=== PATIENT | female | born 1955 | race Native Hawaiian/Other Pacific Islander ===

== ENCOUNTER 2018-04-09 08:24 | Day surgery (SDC) | payer OTHER, SELFPAY ==
--- NOTE | 2018-04-04 16:56 | PM.PREOP ---
Pre-operative Note Interval Note Pre-op Check: Yes History & Physical Reviewed by Physician Changes: No
[2018-04-09 09:09] VITALS: BP 175/87; PULSE 78; RESP 16; TEMP 36.1; O2SAT 98; BMI 23.1
[2018-04-09] MEDS: PROPARACAINE 0.5% OPHTH SOL 2 DROPS EYE-OP (09:15)
[2018-04-09] MEDS: CATARACT EYE COMPOUND (10 DROPS/SYRINGE) 3 DROPS EYE-OP (09:18)
[2018-04-09] MEDS: BALANCED SALT IRRIG SOLN NO.2 15 ML IRRIG.SOLN IRR (10:04)
[2018-04-09] MEDS: LIDOCAINE 2% 4 ML, BUPIVACAINE 0.5% (PF) 4 ML, HYALURONIDASE 150 UNIT INJ (10:05)
[2018-04-09] MEDS: CARBACHOL 1.5 ML VIAL INJ (10:06)
[2018-04-09] MEDS: CHONDROIDTIN/SOD HYALURONATE 1.05 ML SYRINGE INTRAOCULA (10:11)
[2018-04-09] MEDS: ERYTHROMYCIN OPHTH 1 GM OINT 1 APPLIC EYE-RIGHT (10:11)
[2018-04-09] MEDS: LIDOCAINE 1% W/EPI INJ 20 ML INJ (10:12)
[2018-04-09] MEDS: HYALURONATE SODIUM 10 MG/ML SYRINGE INJ (10:12)
[2018-04-09] MEDS: MOXIFLOXACIN OPHTH DROPS 3 ML BOTTLE 2 DROPS INJ (10:13)
[2018-04-09] MEDS: OFLOXACIN 0.3% OPHTH 5 ML 2 DROPS EYE-RIGHT (10:13)
[2018-04-09] MEDS: PHENYLEPHRINE/LIDOCAINE VIAL (OR) 0.2 ML EYE-OP (10:15)
[2018-04-09] MEDS: TRIAMCINOLONE 50 MG/5 ML VIAL INJ (10:15)
[2018-04-09] MEDS: TRYPAN BLUE 0.5 ML SYRINGE INJ (10:16)
[2018-04-09] MEDS: BALANCED SALT IRRIG SOLN NO.2 500 ML, EPINEPHrine 1 MG IRR (10:17)
[2018-04-09] MEDS: LIDOCAINE JELLY 2% 5 ML 1 APPLIC TOP (10:22)
[2018-04-09 10:37] VITALS: BP 159/90; PULSE 90; RESP 16; TEMP 36.9; O2SAT 95
[2018-04-09 10:45] VITALS: BP 159/90; PULSE 90; RESP 16; TEMP 36.9; O2SAT 95
--- NOTE | 2018-04-09 15:21 | PM.OP.1 ---
Operative Date/Time/Diagnoses Date of procedure: 04/09/18 Time of procedure: 09:45 Procedure & Clinicians Procedure: Date of service: [] Preoperative diagnoses: 1. Right [] Cataract Postoperative diagnoses: 1. Cataract Complex with advanced cortical nuclear sclerotic changes. Need for capsular dye. 2. hypertension Procedure: Complex Phacoemulsification with posterior chamber intraocular lens implant and use of capsular dye. Surgeon: Brynn Jimenez MD Complications: none Specimen: None Implant:ZCBOO+21.0 Blood loss: None Anesthesia: Retrobulbar with monitored standby Anesthesiologist: William Uribe M.D. Description of procedure: Patient is a female 62 year old [place] with decreased vision due to cataract which is affecting activities of daily living. She wants surgery to improve vision. She was taken to the operating room and given IV sedation. A retrobulbar block insert consisting of 6 cc of 2% xylocaine without epinephrine mixed half and half with 0.5% Marcaine with 1 cc of hyaluronidase added is placed between the medial and lateral 1/3 of the inferior orbital rim. Lid akinesia is obtain with 1% xylocaine with epinephrine infiltrated along the lid margin. The eye is manually massaged for 30 sec, prepped using Betadine solution, and draped in the usual sterile fashion. Temporal approach was made, a 1 mm side-port incision was made at the 7:30 position. Phenylephrine 1.5% mixed with 1% xylocaine 0.2 cc was placed into the anterior chamber. Due to poor visibility and lack of red reflex and air bubble was placed followed by vision blue dye. Viscoat followed by Healon was then placed. A 2.6 mm clear incision with a 2.6 mm blade was placed at the 170 degree meridian. A 360 degree capsulorrhexis style capsulotomy was then performed with a cystitome needle on a Healon. Hydrodelineation and hydrodissection were performed. The phacoemulsification unit is introduced, and sculpting notice used to groove the central lens. It is then removed in chopping mode. Epi nucleus is removed with epinuclear mode and irrigation aspiration was used to remove the peripheral cortex. The posterior capsule is polished. The intraocular lens is selected, inspected, power confirmed, and placed in the posterior chamber. The pupil was constricted. The wound was stromally hydrated and tested for leaks, there was none and it was left sutureless. Vigamox 0.1 cc was placed into the anterior chamber. Kenalog 0.2 cc was placed in the superior subconjunctival space. A drop of antibiotic and was placed and the eye was patched and shielded. The patient was stable and returned to the recovery room in excellent condition. Dictated by: Brynn Jimenez MD Copy to: [facility] Same procedure as scheduled: Yes
== END 2018-04-09 10:58 | disposition home or self-care (01) ==
LOC: OR 08:29
PROVIDERS: PCP Family Medicine; Visit Provider Ophthalmology
DX: H25.11 Age-related nuclear cataract, right eye (principal); I10 Essential (primary) hypertension; R51 Headache
CPT/HCPCS: J0171; J2250; J2704; J3010; J3301; J3470

== ENCOUNTER 2018-04-23 08:30 | Day surgery (SDC) | payer OTHER, SELFPAY ==
--- NOTE | 2018-04-21 09:12 | PM.OP.1 ---
Operative Date/Time/Diagnoses Date of procedure: 04/23/18 Time of procedure: 10:00 Procedure & Clinicians Procedure: Date of service: April 23, 2018 Preoperative diagnoses: 1. Complex advanced nuclear sclerotic and cortical cataract With need for capsular dye to improve visibility. Postoperative diagnoses: 1. Cataract removed with use of capsular dye phacoemulsification and posterior chamber intraocular lens implant. Procedure: Phacoemulsification with posterior chamber intraocular lens implant Surgeon: Brynn Jimenez MD Complications:none Specimen: None Implant:ZCBOO+21.0 Blood loss: None Anesthesia: Retrobulbar with monitored standby Anesthesiologist: Krista Vigil M.D. Description of procedure: Patient is a 62 year old female with decreased vision due to cataract which is affecting activities of daily living. She wants surgery to improve vision. She was taken to the operating room and given IV sedation. A retrobulbar block consisting of 6 cc of 2% xylocaine without epinephrine mixed half and half with 0.5% Marcaine with 1 cc of hyaluronidase added is placed between the medial and lateral 1/3 of the inferior orbital rim. Lid akinesia is obtain with 1% xylocaine with epinephrine infiltrated along the lid margin. The eye is manually massaged for 30 sec, prepped using Betadine solution, and draped in the usual sterile fashion. The retrobulbar block was incomplete and she had some discomfort so 2% lidocaine jelly was placed on the surface of the eye with good result. Temporal approach was made, a 1 mm side-port incision was made at the 12 oclock meridian. Phenylephrine 1.5% mixed with 1% xylocaine 0.2 cc was placed into the anterior chamber. An air bubble placed by capsular dye is then inserted improve his ability.Viscoat followed by Magan was then placed. A 2.6 mm clear incision with a 2.6 mm blade was placed at the 3 oclock meridian. A 360 degree capsulorrhexis style capsulotomy was then performed with a cystitome needle on a Healon. Hydrodelineation and hydrodissection were performed. The phacoemulsification unit is introduced, and sculpting notice used to groove the central lens. It is then removed in chopping mode. Epi nucleus is removed with epinuclear mode and irrigation aspiration was used to remove the peripheral cortex. The posterior capsule is polished. The intraocular lens is selected, inspected, power confirmed, and placed in the posterior chamber. The pupil was constricted. The wound was stromally hydrated and tested for leaks, there was none and was left sutureless. Vigamox 0.1 cc was placed into the anterior chamber. Kenalog 0.2 cc was placed in the superior subconjunctival space. A drop of antibiotic and was placed and the eye was patched and shielded. The patient was stable and returned to the recovery room in excellent condition. Dictated by: Brynn Jimenez MD Copy to: [facility]
--- NOTE | 2018-04-21 09:12 | PM.PREOP ---
Pre-operative Note Interval Note Pre-op Check: Yes History & Physical Reviewed by Physician Changes: No
[2018-04-23 08:57] VITALS: BP 195/82; PULSE 61; RESP 16; TEMP 36.1; O2SAT 98; BMI 24.2
[2018-04-23] MEDS: PROPARACAINE 0.5% OPHTH SOL 2 DROPS EYE-OP (08:58)
[2018-04-23] MEDS: CATARACT EYE COMPOUND (10 DROPS/SYRINGE) 3 DROPS EYE-OP ×3 (09:03→09:13)
--- NOTE | 2018-04-23 09:16 | SUR.PREOP ---
Pt's right eye with healing bruising under the eye from recent right eye cataract surgery.
[2018-04-23] MEDS: BALANCED SALT IRRIG SOLN NO.2 15 ML IRRIG.SOLN IRR (10:15)
[2018-04-23] MEDS: CARBACHOL 1.5 ML VIAL INJ (10:15)
[2018-04-23] MEDS: CHONDROIDTIN/SOD HYALURONATE 1.05 ML SYRINGE INTRAOCULA (10:16)
[2018-04-23] MEDS: ERYTHROMYCIN OPHTH 1 GM OINT 1 APPLIC EYE-LEFT (10:16)
[2018-04-23] MEDS: HYALURONATE SODIUM 10 MG/ML SYRINGE INJ (10:16)
[2018-04-23] MEDS: LIDOCAINE 1% W/EPI INJ 20 ML INJ (10:17)
[2018-04-23] MEDS: MOXIFLOXACIN OPHTH DROPS 3 ML BOTTLE 2 DROPS INJ (10:18)
[2018-04-23] MEDS: OFLOXACIN 0.3% OPHTH 5 ML 2 DROPS EYE-LEFT (10:19)
[2018-04-23] MEDS: PHENYLEPHRINE/LIDOCAINE VIAL (OR) 0.2 ML EYE-OP (10:20)
[2018-04-23] MEDS: TRIAMCINOLONE 50 MG/5 ML VIAL INJ (10:20)
[2018-04-23] MEDS: BALANCED SALT IRRIG SOLN NO.2 500 ML, EPINEPHrine 1 MG IRR (10:21)
[2018-04-23] MEDS: TRYPAN BLUE 0.5 ML SYRINGE INJ (10:21)
[2018-04-23] MEDS: LIDOCAINE 2% 4 ML, BUPIVACAINE 0.5% (PF) 4 ML, HYALURONIDASE 150 UNIT INJ (10:23)
[2018-04-23] MEDS: LIDOCAINE JELLY 2% 5 ML 1 APPLIC TOP (10:24)
[2018-04-23 10:50] VITALS: BP 179/103; PULSE 68; RESP 16; TEMP 36.6; O2SAT 98
[2018-04-23 11:10] VITALS: BP 183/88; PULSE 57; RESP 16; TEMP 36.6; O2SAT 100
== END 2018-04-23 11:20 | disposition home or self-care (01) ==
PROVIDERS: PCP Family Medicine; Visit Provider Ophthalmology
DX: H25.12 Age-related nuclear cataract, left eye (principal); I10 Essential (primary) hypertension
CPT/HCPCS: J0171; J2704; J3010; J3301; J3470

== ENCOUNTER 2018-06-11 11:52 | Emergency (ER) | payer OTHER, SELFPAY ==
[2018-06-11 12:00] VITALS: BP 174/84; PULSE 82; RESP 20; TEMP 37.4; O2SAT 97; BMI 23.2
[2018-06-11 12:35] LABS: Add Manual Diff / Slide Review NO; Basophils Percent Auto 0.6 % (0-2); Eosinophils Percent Auto 0.3 % (2-4); Hematocrit 39.9 % (36-46); Hemoglobin 13.5 g/dL (12.0-16.0); Lymphocytes Percent Auto 17.1 % (25-40); Mean Corpuscular Hemoglobin 29.5 PG (26-34); Mean Corpuscular Volume 86.8 fL (80-100); Monocytes Percent Auto 12.7 % (3-14); Neutrophils Absolute Auto 10700 /uL (1500-7000); Neutrophils Percent Auto 69.3 % (50-75); Platelet Count 322 X10^3/uL (150-400); Red Blood Cell Count 4.59 X10^6/uL (4.0-5.2); White Blood Cell Count 15.4 X10^3/uL (4.5-11.0)
[2018-06-11] MEDS: SODIUM CHLORIDE 0.9% 1,000 ML 1000 ML IV (12:41)
[2018-06-11] MEDS: DEXAMETHASONE 20 MG in SODIUM CHLORIDE 0.9% 50 ML 208 ML IV (12:41)
[2018-06-11 12:42] LABS: Alanine Aminotransferase 18 IU/L (9-52); Albumin 4.4 g/dL (3.5-5.0); Alkaline Phosphatase 78 U/L (38-126); Aspartate Aminotransferase 37 IU/L (14-36); BUN Creatinine Ratio 18.8 (6-22); Bilirubin Total 1.5 mg/dL (0.2-1.3); Blood Urea Nitrogen 15 mg/dL (7-17); Calcium 9.8 mg/dL (8.4-10.2); Carbon Dioxide 28 mmol/L (22-32); Chloride 99 mmol/L (98-107); Estimated Glomerular Filt Rate > 60.0 mL/min (>60); Globulin 4.4 g/dL (1.7-4.1); Glucose 109 mg/dL (80-110); HEMOLYSIS < 15 (0-50); Potassium 3.6 mmol/L (3.4-5.1); Sodium 142 mmol/L (137-145); Total Protein 8.8 g/dL (6.3-8.2)
[2018-06-11 13:00] VITALS: BP 163/81; PULSE 85; O2SAT 94
[2018-06-11] MEDS: CLINDAMYCIN 600 MG/50 ML PIGGYBACK 50 MG IV (13:01)
--- NOTE | 2018-06-11 13:03 | ED_ITS ---
HPI - URI/Sore Throat General Chief Complaint: Upper Respiratory Symptoms Stated Complaint: swollen throat, cant eat Time Seen by Provider: 06/11/18 12:23 Source: patient Mode of arrival: ambulatory Limitations: no limitations History of Present Illness HPI Narrative: Patient is a 62-year-old female who presents with a sore throat. It started on June 07 and has progressively gotten worse. She is able to manage her own secretions however she feels like the left side of her throat and neck of gotten more swollen. She has muffled voice she has decreased oral intake due to pain. MD Complaint: sore throat Onset (ago): day(s) (4) Duration: constant Severity: moderate Relieving factors: nothing Related Data Home Medications Medication Instructions Recorded Confirmed aspirin 81 mg tablet 81 mg PO DAILY 03/05/18 Previous Rx's Medication Instructions Recorded losartan 100 mg tablet 100 mg PO QDAY #90 tab 03/03/18 metoprolol succinate ER 100 mg 100 mg PO QDAY #90 tab 03/03/18 tablet,extended release 24 hr clindamycin HCl 300 mg PO QID #24 cap 06/11/18 clindamycin HCl 300 mg PO QID #28 cap 06/11/18 prednisone 50 mg PO DAILY #5 tab 06/11/18 prednisone 50 mg PO DAILY #5 tab 06/11/18 Allergies Allergy/AdvReac Type Severity Reaction Status Date / Time acetaminophen [ACETAMINOPHEN] Allergy Severe hives, Verified 03/05/18 14:29 puritis crab [CRAB] Allergy Severe hives, Verified 03/05/18 14:29 puritis Penicillins [PENICILLINS] Allergy Severe hives, Verified 03/05/18 14:29 puritis Sulfa (Sulfonamide Allergy Severe hives, Verified 03/05/18 14:29 Antibiotics) puritis [SULFA (SULFONAMIDE ANTIBIOTICS)] Review of Systems Review of Systems All systems reviewed & are unremarkable except as noted in HPI and below Constitutional Reports fatigue and Reports poor appetite ENT Ears, Nose, Mouth, and Throat: Reports as per HPI, Reports hoarseness and Reports throat swelling Cardiovascular Denies chest pain, Denies irregular heart rhythm, Denies lightheadedness, Denies palpitations, Denies dyspnea and Denies orthopnea Respiratory Reports cough (Sometimes) and Denies dyspnea Gastrointestinal Gastrointestinal: Denies abdominal pain, Denies change in bowel habits, Denies diarrhea, Denies nausea and Denies vomiting Integumentary/Breasts Denies pruritus, Denies erythema, Denies rash and Denies wounds Endocrine Reports fatigue and Denies palpitations Allergic/Immunologic Reports throat swelling [facility] Medical History Essential hypertension (Chronic 04/15/15) Mixed hyperlipidemia (Chronic 07/22/15) Hyperlipidemia (Chronic) Hypertension (Chronic) History of vaginal delivery (Resolved) Family History Father Stroke Mother Aneurysm Social History household members: spouse and family Smoking Status: Never smoker Exam Initial Vital Signs Initial Vital Signs: Vital Signs Temperature 99.3 F 06/11/18 12:00 Pulse Rate 82 06/11/18 12:00 Respiratory Rate 20 06/11/18 12:00 Blood Pressure 174/84 H 06/11/18 12:00 Pulse Oximetry 97 06/11/18 12:00 GENERAL: Alert elderly female no acute distress HEENT: Head atraumatic,EOMI, pupils reactive, face symmetric, PHARYNX: No uvula deviation left-sided tongue swelling left cervical lymphadenopathy managing own secretions, muffled voice CARDIOVASCULAR: Regular rate and rhythm without murmurs, rubs or gallops. RESPIRATORY: Breath sounds equal bilaterally, no wheezes rales or rhonchi. ABDOMEN: Soft, nontender. Normoactive bowel sounds all 4 quadrants. No guarding or rebound. EXTREMITIES: Normal range of motion, no clubbing or edema. Neurovascularly intact NEUROLOGICAL: Alert and oriented x4.Normal gait and speech. Cranial nerves II through XII grossly intact. SKIN: Warm, dry, no laceration, no petechiae, no rashes or lesions. Course Orders Ordered: ED Orders 06/11/18 12:22 Complete Blood Count AUTO DIFF Stat Comprehensive Metabolic Panel Stat 06/11/18 12:46 Blood Culture Stat Lactate (Lactic Acid) Stat 06/11/18 13:56 CT soft tissue neck w con Stat Discontinued Medications Clindamycin Phosphate (Cleocin) 600 mg in 50 mls @ 50 mls/hr IV NOW ONE Stop: 06/11/18 13:25 Last Infusion: 06/11/18 14:38 Dose: 0 mls/hr Admin: 06/11/18 13:01 Dose: 50 mls/hr Dexamethasone 20 mg/ Sodium (Chloride) 52 mls @ 208 mls/hr IV NOW ONE Stop: 06/11/18 12:27 Last Infusion: 06/11/18 13:04 Dose: 0 mls/hr Admin: 06/11/18 12:41 Dose: 208 mls/hr Sodium Chloride (Normal Saline 0.9%) 1,000 mls @ 1,000 mls/hr IV BOLUS ONE Stop: 06/11/18 13:25 Last Infusion: 06/11/18 14:57 Dose: 0 mls/hr Admin: 06/11/18 12:41 Dose: 1,000 mls/hr Vital Signs - 8 hr 06/11/18 12:00 06/11/18 13:00 06/11/18 15:21 Temperature 99.3 F Pulse Rate 82 85 88 Respiratory Rate 20 15 Blood Pressure 174/84 H Blood Pressure [Left Arm] 163/81 H 152/81 H Pulse Oximetry 97 94 100 06/11/18 16:00 Temperature Pulse Rate 86 Respiratory Rate 20 Blood Pressure 155/77 H Blood Pressure [Left Arm] Pulse Oximetry 97 MDM - URI/Sore Throat Lab Data Attestation: I reviewed the patient's lab results. Result diagrams: 06/11/18 12:22 06/11/18 12:22 Lab Results 06/11/18 06/11/18 06/11/18 Range/Units 12:22 12:22 12:46 WBC 15.4 H (4.5-11.0) X10^3/uL RBC 4.59 (4.0-5.2) X10^6/uL Hgb 13.5 (12.0-16.0) g/dL Hct 39.9 (36-46) % MCV 86.8 (80-100) fL MCH 29.5 (26-34) PG MCHC 34.0 (30-36) % RDW 13.0 (11.6-14.8) % Plt Count 322 (150-400) X10^3/uL Neut % (Auto) 69.3 (50-75) % Lymph % (Auto) 17.1 L (25-40) % [place] % (Auto) 12.7 (3-14) % Eos % (Auto) 0.3 L (2-4) % Baso % (Auto) 0.6 (0-2) % Neut # (Auto) 48896 H (3193-6525) /uL Sodium 142 (137-145) mmol/L Potassium 3.6 (3.4-5.1) mmol/L Chloride 99 (98-107) mmol/L Carbon Dioxide 28 (22-32) mmol/L BUN 15 (7-17) mg/dL Creatinine 0.80 (0.52-1.04) mg/dL Estimated GFR > 60.0 (>60) mL/min BUN/Creatinine Ratio 18.8 (6-22) Glucose 109 (80-110) mg/dL Lactate 1.0 (0.7-2.1) mmol/L Calcium 9.8 (8.4-10.2) mg/dL Total Bilirubin 1.5 H (0.2-1.3) mg/dL AST 37 H (14-36) IU/L ALT 18 (9-52) IU/L Alkaline Phosphatase 78 (38-126) U/L Total Protein 8.8 H (6.3-8.2) g/dL Albumin 4.4 (3.5-5.0) g/dL Globulin 4.4 H (1.7-4.1) g/dL Albumin/Globulin Ratio 1.0 (1.0-2.8) Imaging Data ct nECK: Radiologist's impression: PROCEDURE: CT SOFT TISSUE NECK W CON INDICATIONS: left sided swelling can't swallow TECHNIQUE: After the administration of intravenous contrast, 3.0 mm axial sections acquired from the sella to the aortic arch. Additional oblique axial 3.0 mm sections acquired through the pharynx. 3 mm thick coronal and sagittal reformats were generated. For radiation dose reduction, the following was used: automated exposure control. COMPARISON: None. FINDINGS: Image quality: Excellent. Lymph nodes: There is an increased number of small nodes and several mildly enlarged nodes along the left neck, deep to the sternocleidomastoid muscle, and a lesser degree of prominent lymph nodes in the same region on the right. This is not associated with identifiable centrally necrotic nodes. Note is made of a asymmetry within the left parapharyngeal soft tissues, which on axial CT scanning measures up to 2.3 x 3.1 cm, and with a craniocaudad length of at least 3.0 cm and possibly 6.7 cm craniocaudad on the coronal information imaging. The boundaries of the subtle abnormality along the left tonsillar pillar and submucosal regions in this area are indistinct. Vessels: Visualized vasculature appears patent. Neck spaces: The oropharynx, nasopharynx, and pharynx demonstrate no mucosal lesions. The vocal cords, false vocal cords, pyriform sinuses, epiglottis, vallecula, and tongue base all appear normal. Extramucosal spaces appear unremarkable. Glands: The parotid and submandibular glands appear normal. Thyroid gland appears normal where well visualized.. Miscellaneous: Visualized brain and orbits appear normal. Lung apices appear clear. Superficial soft tissues appear normal. Bones: No suspicious bony lesions. Visualized sinuses and mastoids appear unremarkable. IMPRESSION: Increased number and size of lymph nodes in the neck bilaterally greater on the left than the right, in the setting of an asymmetric soft tissue prominence causing left pharyngeal mass effect deviating the mucosal margin towards the midline. The appearance is not associated with identifiable abscess. The appearance raises a significant degree of concern than an infiltrative malignancy is present in this area. ENT consultation and direct visualization for presence of malignancy along the mucosal surface is recommended. Also, improved tissue discrimination may be possible with contrast-enhanced neck MR scanning given the poor tissue tissu boundary visualization by the current contrast-enhanced CT scanning. Dictated by: Benito Puga M.D. on 06/11/2018 at 15:02 [facility] Narrative Medical decision making narrative: Patient is feeling much better after IV fluids and dexamethasone. CT does suggest possible concern for malignancy. However this happened rather acutely she is leukocytosis. Will treat for infection at this time with steroids and antibiotics. I have discussed results with patient and daughter. If swelling does not go away or worsens she may require further workup. Discharge Plan Departure Patient Disposition: Home Clinical Impression: Pharyngitis Discharge Date/Time: 06/11/18 16:02 Interventions: ED Discharge Assessment Last Done: 06/11/18 16:00 Instructions: DI for Pharyngitis/Tonsillopharyngitis -- Adult Activity Restrictions/Additional Instructions: *You have been diagnosed with pharyngitis with lymphadenopathy *What to do: Increase fluid intake *Continue to take medications as directed: TRANSMITTED TO [facility] [place] clindamycin 300 mg 4 times a day Prednisone 50 mg once a day for 5 days *Follow up with your primary care provider in 2-3 days *Return to ER if you should have inability to swallow, difficulty breathing, unable to take medication or any new, worsening or concerning symptoms Prescriptions: New clindamycin HCl 300 mg capsule 300 mg PO QID Qty: 24 RF: 0 prednisone 50 mg tablet 50 mg PO DAILY Qty: 5 RF: 0 clindamycin HCl 300 mg capsule 300 mg PO QID Qty: 28 RF: 0 prednisone 50 mg tablet 50 mg PO DAILY Qty: 5 RF: 0 No Action losartan [Cozaar] 100 mg tablet 100 mg PO QDAY Qty: 90 RF: 3 metoprolol succinate [Toprol XL] 100 mg tablet extended release 24 hr 100 mg PO QDAY Qty: 90 RF: 3 aspirin 81 mg tablet 81 mg PO DAILY RF: 0 Referrals: Adriana Carrillo DO [Primary Care Provider] -
--- NOTE | 2018-06-11 13:56 | DI.CT.S_ITS ---
PROCEDURE: CT SOFT TISSUE NECK W CON INDICATIONS: left sided swelling can't swallow TECHNIQUE: After the administration of intravenous contrast, 3.0 mm axial sections acquired from the sella to the aortic arch. Additional oblique axial 3.0 mm sections acquired through the pharynx. 3 mm thick coronal and sagittal reformats were generated. For radiation dose reduction, the following was used: automated exposure control. COMPARISON: None. FINDINGS: Image quality: Excellent. Lymph nodes: There is an increased number of small nodes and several mildly enlarged nodes along the left neck, deep to the sternocleidomastoid muscle, and a lesser degree of prominent lymph nodes in the same region on the right. This is not associated with identifiable centrally necrotic nodes. Note is made of a asymmetry within the left parapharyngeal soft tissues, which on axial CT scanning measures up to 2.3 x 3.1 cm, and with a craniocaudad length of at least 3.0 cm and possibly 6.7 cm craniocaudad on the coronal information imaging. The boundaries of the subtle abnormality along the left tonsillar pillar and submucosal regions in this area are indistinct. Vessels: Visualized vasculature appears patent. Neck spaces: The oropharynx, nasopharynx, and pharynx demonstrate no mucosal lesions. The vocal cords, false vocal cords, pyriform sinuses, epiglottis, vallecula, and tongue base all appear normal. Extramucosal spaces appear unremarkable. Glands: The parotid and submandibular glands appear normal. Thyroid gland appears normal where well visualized.. Miscellaneous: Visualized brain and orbits appear normal. Lung apices appear clear. Superficial soft tissues appear normal. Bones: No suspicious bony lesions. Visualized sinuses and mastoids appear unremarkable. IMPRESSION: Increased number and size of lymph nodes in the neck bilaterally greater on the left than the right, in the setting of an asymmetric soft tissue prominence causing left pharyngeal mass effect deviating the mucosal margin towards the midline. The appearance is not associated with identifiable abscess. The appearance raises a significant degree of concern than an infiltrative malignancy is present in this area. ENT consultation and direct visualization for presence of malignancy along the mucosal surface is recommended. Also, improved tissue discrimination may be possible with contrast-enhanced neck MR scanning given the poor tissue tissu boundary visualization by the current contrast-enhanced CT scanning. Dictated by: Benito Puga M.D. on 06/11/2018 at 15:02 Approved by: Benito Puga M.D. on 06/11/2018 at 15:12
[2018-06-11 15:21] VITALS: BP 152/81; PULSE 88; RESP 15; O2SAT 100
[2018-06-11 16:00] VITALS: BP 155/77; PULSE 86; RESP 20; O2SAT 97
== END 2018-06-11 16:02 | disposition home or self-care (01) ==
PROVIDERS: Emergency Provider Emergency Medicine; PCP Family Medicine
DX: J02.9 Acute pharyngitis, unspecified (principal)
CPT/HCPCS: 36415; 36591; 70491; 80053; 83605; 85025; 87040; 96365; 96366; 96367; 99283; 99285; J1100; Q9967

== ENCOUNTER → 2018-11-17 10:42 | Outpatient (CLI) | payer MEDICARE, OTHER, SELFPAY ==
[2018-11-17 12:34] LABS: Add Manual Diff / Slide Review NO; Basophils Absolute Auto 100 /uL (0-100); Eosinophils Absolute Auto 300 /uL (0-450); Eosinophils Percent Auto 4.1 % (2-4); Hematocrit 42.8 % (36-46); Hemoglobin 14.4 g/dL (12.0-16.0); Lymphocytes Absolute Auto 3000 /uL (1100-4500); Lymphocytes Percent Auto 40.7 % (25-40); Mean Corpuscular HGB Conc 33.7 % (30-36); Mean Corpuscular Hemoglobin 29.6 PG (26-34); Mean Corpuscular Volume 87.6 fL (80-100); Monocytes Absolute Auto 800 /uL (0-900); Monocytes Percent Auto 10.7 % (3-14); Neutrophils Absolute Auto 3200 /uL (1500-7000); Neutrophils Percent Auto 43.5 % (50-75); Platelet Count 252 X10^3/uL (150-400); Red Blood Cell Count 4.89 X10^6/uL (4.0-5.2); Red Cell Distribution Width 13.1 % (11.6-14.8); White Blood Cell Count 7.4 X10^3/uL (4.5-11.0)
[2018-11-17 12:57] LABS: Albumin 4.5 g/dL (3.5-5.0); Albumin Globulin Ratio 1.1 (1.0-2.8); Alkaline Phosphatase 62 U/L (38-126); Aspartate Aminotransferase 26 IU/L (14-36); BUN Creatinine Ratio 23.8 (6-22); Bilirubin Total 0.7 mg/dL (0.2-1.3); Blood Urea Nitrogen 19 mg/dL (7-17); Calcium 10.2 mg/dL (8.4-10.2); Carbon Dioxide 29 mmol/L (22-32); Chloride 102 mmol/L (98-107); Cholesterol 243 mg/dL (140-199); Estimated Glomerular Filt Rate > 60.0 mL/min (>60); Globulin 4.2 g/dL (1.7-4.1); Glucose 116 mg/dL (80-110); HDL Cholesterol 32 mg/dL (40-60); HEMOLYSIS 19 (0-50); LDL Cholesterol Calculated 135 mg/dL (<100); Potassium 3.9 mmol/L (3.4-5.1); Sodium 142 mmol/L (137-145); Total Protein 8.7 g/dL (6.3-8.2); Triglycerides 378 mg/dL (35-150)
[2018-11-17 13:07] LABS: Troponin I < 0.012 ng/mL (0.01-0.034)
[2018-11-17 13:37] LABS: TSH w/ Reflex to FT4 1.33 uIU/mL (0.47-4.68)
[2018-11-17 14:32] LABS: Alanine Aminotransferase 10 IU/L (9-52)
== END ==
PROVIDERS: PCP Family Medicine; Visit Provider Family Medicine
DX: I10 Essential (primary) hypertension (principal); E78.2 Mixed hyperlipidemia
CPT/HCPCS: 36415; 80053; 80061; 84443; 84484; 85025

== ENCOUNTER → 2018-11-20 08:22 | Outpatient (CLI) | payer MEDICARE, OTHER, SELFPAY ==
--- NOTE | 2018-11-20 08:23 | DI.MG.S_ITS ---
BILATERAL DIGITAL SCREENING MAMMOGRAM 3D/2D WITH CAD: 11/20/2018 CLINICAL: Routine screening. Comparison is made to exam dated: 08/07/2012 mammogram - [facility]. The tissue of both breasts is heterogeneously dense. This may lower the sensitivity of mammography. Current study was also evaluated with a Computer Aided Detection (CAD) system. There are benign calcifications in both breasts. No significant masses, calcifications, or other findings are seen in either breast. There has been no significant interval change. IMPRESSION: There is no mammographic evidence of malignancy. A 1 year screening mammogram is recommended. This exam was interpreted at Station ID: [id number]. NOTE: For mammograms, a report in lay terms will be sent to the patient. Approximately 15% of breast malignancies will not be visualized mammographically. In the management of a palpable breast mass, a negative mammogram must not discourage biopsy of a clinically suspicious lesion. Electronically Signed By: Clayton breaux/kevin:11/20/2018 13:09:41 letter sent: Normal Exam ACR BI-RADS Category 2: Benign Finding(s) 3342F
[2018-11-25 16:33] LABS: Albumin 100 %; Protein/ Creatinine Ratio 90 mg/g creat (21-161); Total Urine Protein 5 mg/dL (5-24); Urine Creatinine, Random 56 mg/dL (20-275)
[2018-11-26 15:44] LABS: Albumin 3.9 g/dL (3.8-4.8); Alpha 1 Globulin 0.2 g/dL (0.2-0.3); Alpha 2 Globulin 0.7 g/dL (0.5-0.9); Beta 1 Globulin 0.4 g/dL (0.4-0.6); Gamma Globulin 1.7 g/dL (0.8-1.7); Protein, Total 7.4 g/dL (6.1-8.1)
== END ==
PROVIDERS: PCP Family Medicine; Visit Provider Family Medicine
DX: Z12.31 Encounter for screening mammogram for malignant neoplasm of breast (principal); E88.09 Other disorders of plasma-protein metabolism, not elsewhere classified
CPT/HCPCS: 36415; 77063; 77067; 84155; 84156; 84165; 84166

== ENCOUNTER → 2018-12-26 10:03 | Outpatient (CLI) | payer MEDICARE, OTHER, SELFPAY ==
--- NOTE | 2018-12-26 14:55 | PM.TREADMILL ---
Cardiac Stress Test Report Referral & Results Date Patient Seen: 12/26/18 Requesting provider: Adriana Carrillo Indication: Chest pain with exertion Rest ECG: Unremarkable Procedure Note: Today following both written and verbal informed consent the patient was exercised according to a standard Tony protocol patient went for a total of 5 minutes 18 seconds, however at the end she was unable to keep up with the treadmill and we slowed the treadmill but then she regained her ability to continue walking. She achieved a maximum heart rate of 127 maximum systolic blood pressure of 188. This is approximately 7.0 METS. Exercise was terminated at this point because of inability of the patient to continue. She also developed about 3+ chest pain and 2 to 3+ dyspnea Patient was also given Cardiolite through a previously started Hep-Lock IV by the diagnostic imaging staff approximately 1 minute prior to the cessation of exercise. There are no ST-T segment changes identified. Normal heart rate and blood pressure response. No dysrhythmia. Functional aerobic impairment rated about 0 on the sedentary scale Impression: No evidence of ischemia based on usual ECG criteria. Fairly suspicious symptoms but really lack of significant changes on ECG Please see perfusion imaging report as well. Please note: Actual ECG tracings can be found in the PACS system.
--- NOTE | 2018-12-27 08:11 | DI.NM.S_ITS ---
DATE OF SERVICE: 12/26/2018 PROCEDURE PERFORMED: Exercise treadmill converted to pharmacologic vasodilator stress and rest myocardial perfusion study with gating to assess ejection fraction and regional wall motion, performed as a 1-day protocol. ORDERING PROVIDER: Adriana Carrillo DO INDICATIONS: The patient is a 63-year-old female with exertional chest tightness and dyspnea. CARDIAC STRESS: The patient was initially stressed by treadmill but was able to complete only 3 minutes of exercise and unable to continue, suggesting mildly reduced exercise capacity with an SALLIE of +15%. She had a blunted heart rate response, achieving a maximum of around 110 bpm and, therefore, was converted to a pharmacologic stress by injection of 0.4 mg of regadenoson. She had no angina. Her resting ECG is normal and there were no compelling ischemic changes with stress. There were no arrhythmias. The patient was initially injected with 12.7 mCi of technetium-99 Myoview and imaged 30 minutes later for the resting images, and then had 24.2 mCi of technetium-99 Myoview injected at 4 minutes 9 seconds of stress at a heart rate of 112 bpm. She was then imaged 15 minutes later using a gated SPECT acquisition protocol. FINDINGS: 1. Raw Data: There is good myocardial tracer uptake. The lung/heart ratio is normal at 0.20 with a normal TID ratio of 0.79. 2. Quantitative Gated SPECT: Post-stress ejection fraction is estimated at 89%, likely an overestimate due to relatively small left ventricular volumes. There are no focal wall motion abnormalities. Resting ejection fraction is 87%, again likely an overestimate, with a resting end-diastolic volume of 71 mL. 3. Myocardial Perfusion Imaging: Post-stress supine images show a normal perfusion pattern without any perfusion defects, supported by normal perfusion imaging in the prone position. The resting images show an identical perfusion pattern without any areas of improvement. CONCLUSIONS: 1. Normal myocardial perfusion study. 2. No evidence of myocardial ischemia or previous myocardial infarction. 3. Normal left ventricular systolic function without any focal wall motion abnormalities. 4. Mildly impaired exercise capacity but no angina or ECG evidence of ischemia. Josiah Fabian - RS/fn/ts doc#: [id number]/job#: [id number] dd: 12/26/2018 16:08:00 dt: 12/27/2018 07:55:00 DICTATING MD/COPIES TO: Jamie Rodriguez MD; Adriana Carrillo DO COPIES MNE: RUDOLPH ZHOU
== END ==
PROVIDERS: PCP Family Medicine; Visit Provider Family Medicine
DX: R07.89 Other chest pain (principal); R06.00 Dyspnea, unspecified
CPT/HCPCS: 78452; 93016; 93017; 93018; A9502

== ENCOUNTER 2019-04-23 09:00 | Outpatient (RCR) | payer MEDICARE, OTHER, SELFPAY ==
--- NOTE | 2019-03-12 15:01 | PT.OIE ---
Current Diagnoses Unspecified osteoarthritis, unspecified site (03/12/19) Strain of muscle(s) and tendon(s) of the rotator cuff of unspecified shoulder, initial encounter (03/12/19) Past Medical History (Last Updated 02/12/19 @ 21:12 by Adriana Carrillo DO) Essential hypertension (Chronic 04/15/15) History of active tuberculosis (Acute) History of vaginal delivery (Resolved) Hyperlipidemia (Chronic) Hypertension (Chronic) Mixed hyperlipidemia (Chronic 07/22/15) Visit Care Team Role Provider Type Adriana Carrillo DO Attending Provider Physician Primary Care Provider Specialty: [facility] Address: [address] [place] [address], [address], [facility] Email: [email or web address] Physical Therapy Initial Evaluation PT-OP-A Visit Information Start: 03/12/19 11:09 Freq: Status: Active Protocol: Document 03/12/19 10:20 MB (Rec: 03/12/19 11:16 MB [id number]) Out-Patient Physical Therapy Visit Information Visit Information Visit Type Initial Evaluation Visit Start Time 10:20 Visit Stop Time 11:05 Total Visit Minutes 45 Visit Number 1 Number of BASEBALL HAND SEWER Visits 0 Evaluation Information Evaluation Date 03/12/19 Precautions Precautions None. Pt does report right foot pain and states that she occ has trouble walking. PT-OP-B Current Condition Start: 03/12/19 11:09 Freq: Status: Active Protocol: Document 03/12/19 10:20 MB (Rec: 03/12/19 13:49 MB [id number]) Current Condition History of Current Condition Onset Date 6 months ago, remote right UE injury at work Current Complaints R UE pain, proximal anterolateral arm that occ freezes up History of Current Condition Pt states she has trouble telling things. She cannot report a precipitating event that caused right UE pain. She cannot state what makes the pain better or worse. Prior Treatments and Tests PT after work injury years ago . She does not know what part of her right arm she injured. Treatment Goals Patient/Caregiver Goals To decrease right arm pain. Pt also reports B hands inability to open occ. She also reports right foot pain that inhibits her from walking far. She denies injury to hands and foot. 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 She does not have trouble doing her job. She denies trouble lifting. She does report some discomfort with reaching up and over her right shoulder with her right hand and with reaching across to her left shoulder with showering. Current Functional Impairments (Reported) Functional Limitations- ADL's Pt reports trouble showering d /t trouble reaching up behind her right shoulder and over across her left shoulder. Personal Factors Other Personal Factors That May Effect Pt reports she is a poor Therapy/Recovery historian and has trouble communicating what bothers her . She is a primary [employer] speaker but reports she has no trouble communicating in Ukrainian and states she does not need biomass production manager phone. Pt has variable work schedule that she states might interfere with therapy. Also, she has many areas of pain and also reports BHARDWAJ and feelings like she can't breathe such as when wearing bra. These all might be barriers to PT. PT-OP-C Subjective Start: 03/12/19 11:09 Freq: Status: Active Protocol: Document 03/12/19 10:20 MB (Rec: 03/12/19 13:49 MB [id number]) OP-PT Subjective Patient Comments Patient Reported Progress Same Patient Questionnaires Quick Dash- Upper Extremity Quick Dash UE Impairment 20 to 39% Impaired (Score 20- 39) OP-PT Pain Assessment Location Right arm Pain Location Details Right proximal anterolateral pain rated 8/10 at worse and arm occ freezes Frequency Intermittent Other Pain Aggravating Factors Pt cannot state what increases or decreases pain Comments Pain Comments Pt is a poor historian and cannot state how often she has pain. It appears that she last had pain 3 days ago. She denies pain at rest with PT but does have pain with shoulder flexion and abduction MMT and passive ER in supine. PT-OP-K Range of Motion Start: 03/12/19 11:09 Freq: Status: Active Protocol: Document 03/12/19 10:20 MB (Rec: 03/12/19 13:49 MB [id number]) Cervical Spine Range of Motion Cervical Spine Active Testing Position Standing Flexion 21 Extension 35 Rotation Left 45 Rotation Right 35 Lateral Flexion Left 20 Lateral Flexion Right 17 Shoulder Goniometric Range of Motion Shoulder ROM Limitations Comments AROM in standing: shoulder flexion left 148 deg, right 142 deg; shoulder abduction B equal and WNLs; pt lacks 11 deg left elbow extension, reports child rutherford injury. PROM shoulder ER/IR in 90 deg abduction in supine: left WNLs ; right ER 32 deg and pt reports pect stretch and discomfort, no pain with IR and WNLs. Standing IR behind back: left hand with thumb 2 below inferior scapulae and right 3 below. She is right handed. PT-OP-M Strength Start: 03/12/19 11:09 Freq: Status: Active Protocol: Document 03/12/19 10:20 MB (Rec: 03/12/19 13:49 MB [id number]) Shoulder Strength Shoulder Manual Muscle Testing Right Flexion 4 Good Abduction (C5) 4 Good External Rotation 4 Good Internal Rotation 4 Good Left Flexion 5 Normal Abduction (C5) 5 Normal External Rotation 3+ Fair+ Internal Rotation 4 Good Elbow/Forearm Strength Elbow and Forearm Manual Muscle Testing Right Flexion (C6) 4 Good Extension (C7) 5 Normal Left Flexion (C6) 3+ Fair+ Extension (C7) 5 Normal Wrist Strength Wrist Manual Muscle Testing Right Flexion (C7) 5 Normal Extension (C6) 5 Normal Comments Pronation 3+/5, supintion 4/5 Left Flexion (C7) 5 Normal Extension (C6) 5 Normal Comments Pronation 5/5; supination 4/5 PT-OP-T Assessment and Plan Start: 03/12/19 11:09 Freq: Status: Active Protocol: Document 03/12/19 10:20 MB (Rec: 03/12/19 13:49 MB [id number]) Physical Therapy Assessment Rehab Potential Rehabilitation Potential Good Evaluation Complexity Number of Personal Factors/Comorbidities 3 or More Number of Body Systems Impaired 1-2 Clinical Presentation at Evaluation Stable Impairments Impairments Functional Activities, Functional Mobility,Posture, ROM,Soft Tissue Mobility, Strength Goals Five Impairment Function Skilled Nursing Goal (LTG) Pt will present with an improved QuickDASH score to reflect no more than 15% impairment by 05/12/19. Four Skilled Nursing Goal (LTG) Pt will perform progressive HEP with I by 05/12/19. Three Impairment Strength Skilled Nursing Goal (LTG) Pt will present with B shoulder flexion, abduction, ER and IR strength to 5/5 with MMT by 05/12/19. Two Impairment ROM Tool Maker Bench Goal (LTG) Pt will present with AROM right shoulder flexion equal to the left by 05/12/19. One Impairment Pain Tool Maker Bench Goal (LTG) Pt will report a 90% improvement in right UE pain by 05/12/19. Assessment Summary Assessment Pt is a 74 y/o female presenting with right shoulder and strength deficits in setting of acute on chronic pain. Pt states that she is a poor historian and has trouble describing her sxs. She reports intermittent freezing of her right UE and reports pain as proximal anterolateral arm. She has discomfort with B shoulder MMT and with passive right ER in supine. Pt appears to have joint changes in all fingers and she describes occ clenching of her fingers and inability to open her hands. She also reports right foot pain. Multiple areas of pain may be barriers to PT. PT is concerned about an underlying metabolic and/or inflammatory process given multiple areas of pain and visible joint changes in her fingers. Pt will benefit from PT to improve range and strength and to decrease pain. Her work schedule is variable and changes frequently and could be a barrier to PT attendance. Physical Therapy Plan Frequency and Duration Frequency of Treatment 2x/Week Duration of Treatment 8 weeks Plan of Care Start Date 03/12/19 Plan of Care End Date 05/12/19 Therapeutic Interventions Therapeutic Interventions Canalithic Repositioning,Home Exercise Program,Joint Mobilizations,Manual Therapy, Patient/Caregiver Education, Self-Care/Home Management,Soft Tissue Mobilization,Taping, Therapeutic Activities, Therapeutic Exercises Modalities Cold Pack/Ice Massage,Electric Stimulation,Hot Packs, Ultrasound Other Referrals/Consults Referrals/Consults Recommended In the future, pt may benefit from PT for her right foot pain. She may also benefit from OT for B hand complaints. Next Visit Focus/Plan Next Note Type Treatment Note
--- NOTE | 2019-03-23 17:08 | PT.OTN ---
Current Diagnoses Unspecified osteoarthritis, unspecified site (03/23/19) Strain of muscle(s) and tendon(s) of the rotator cuff of unspecified shoulder, initial encounter (03/23/19) Physical Therapy Treatment Note PT-OP-A Visit Information Start: 03/12/19 11:09 Freq: Status: Active Protocol: Document 03/23/19 17:01 MB (Rec: 03/23/19 17:03 MB [id number]) Out-Patient Physical Therapy Visit Information Visit Information Visit Type Treatment Note Visit Start Time 13:39 Visit Stop Time 14:24 Total Visit Minutes 45 Visit Number 2 Number of SUPERINTENDENT CEMETERY Visits 0 PT-OP-B Current Condition Start: 03/12/19 11:09 Freq: Status: Active Protocol: Document 03/12/19 10:20 MB (Rec: 03/12/19 13:49 MB [id number]) Current Condition History of Current Condition Onset Date 6 months ago, remote right UE injury at work Current Complaints R UE pain, proximal anterolateral arm that occ freezes up History of Current Condition Pt states she has trouble telling things. She cannot report a precipitating event that caused right UE pain. She cannot state what makes the pain better or worse. Prior Treatments and Tests PT after work injury years ago . She does not know what part of her right arm she injured. Treatment Goals Patient/Caregiver Goals To decrease right arm pain. Pt also reports B hands inability to open occ. She also reports right foot pain that inhibits her from walking far. She denies injury to hands and foot. 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 She does not have trouble doing her job. She denies trouble lifting. She does report some discomfort with reaching up and over her right shoulder with her right hand and with reaching across to her left shoulder with showering. Current Functional Impairments (Reported) Functional Limitations- ADL's Pt reports trouble showering d /t trouble reaching up behind her right shoulder and over across her left shoulder. Personal Factors Other Personal Factors That May Effect Pt reports she is a poor Therapy/Recovery historian and has trouble communicating what bothers her . She is a primary [employer] speaker but reports she has no trouble communicating in Urdu and states she does not need leaf coverer phone. Pt has variable work schedule that she states might interfere with therapy. Also, she has many areas of pain and also reports BHARDWAJ and feelings like she can't breathe such as when wearing bra. These all might be barriers to PT. PT-OP-C Subjective Start: 03/12/19 11:09 Freq: Status: Active Protocol: Document 03/23/19 13:39 MB (Rec: 03/23/19 17:05 MB [id number]) OP-PT Subjective Patient Comments Patient Comments Pt states that her left arm is bothering her because she cannot use her right arm too much. She is having trouble lifting heavy things with her right arms. Alpa and tumeric tea is helpful. Her feet are still bothering her. PT-OP-K Range of Motion Start: 03/12/19 11:09 Freq: Status: Active Protocol: Document 03/12/19 10:20 MB (Rec: 03/12/19 13:49 MB [id number]) Cervical Spine Range of Motion Cervical Spine Active Testing Position Standing Flexion 21 Extension 35 Rotation Left 45 Rotation Right 35 Lateral Flexion Left 20 Lateral Flexion Right 17 Shoulder Goniometric Range of Motion Shoulder ROM Limitations Comments AROM in standing: shoulder flexion left 148 deg, right 142 deg; shoulder abduction B equal and WNLs; pt lacks 11 deg left elbow extension, reports child rutherford injury. PROM shoulder ER/IR in 90 deg abduction in supine: left WNLs ; right ER 32 deg and pt reports pect stretch and discomfort, no pain with IR and WNLs. Standing IR behind back: left hand with thumb 2 below inferior scapulae and right 3 below. She is right handed. PT-OP-M Strength Start: 03/12/19 11:09 Freq: Status: Active Protocol: Document 03/12/19 10:20 MB (Rec: 03/12/19 13:49 MB [id number]) Shoulder Strength Shoulder Manual Muscle Testing Right Flexion 4 Good Abduction (C5) 4 Good External Rotation 4 Good Internal Rotation 4 Good Left Flexion 5 Normal Abduction (C5) 5 Normal External Rotation 3+ Fair+ Internal Rotation 4 Good Elbow/Forearm Strength Elbow and Forearm Manual Muscle Testing Right Flexion (C6) 4 Good Extension (C7) 5 Normal Left Flexion (C6) 3+ Fair+ Extension (C7) 5 Normal Wrist Strength Wrist Manual Muscle Testing Right Flexion (C7) 5 Normal Extension (C6) 5 Normal Comments Pronation 3+/5, supintion 4/5 Left Flexion (C7) 5 Normal Extension (C6) 5 Normal Comments Pronation 5/5; supination 4/5 PT-OP-Q Treatments Start: 03/12/19 11:09 Freq: Status: Active Protocol: Document 03/23/19 13:39 MB (Rec: 03/23/19 17:05 MB [id number]) Therapeutic Exercises Other Exercises Cane exercise Comments Cane shoulder flexion in supine head/neck support Scapular retraction Comments Scapular retraction/thoracic lift wall and in supine with head/neck support Racquet ball massage Comments Racquet ball massage intrascapular, delt, infraspinatus; upper traps Manual Therapy Treatment Other Other Manual Treatments Pt supine, suboccipital release, STM right upper traps , PROM right shoulder abd/ flexion and rotation. MWM ER and IR right shoulder. PT-OP-T Assessment and Plan Start: 03/12/19 11:09 Freq: Status: Active Protocol: Document 03/23/19 17:01 MB (Rec: 03/23/19 17:03 MB [id number]) Physical Therapy Plan Frequency and Duration Frequency of Treatment 2x/Week Duration of Treatment 8 weeks Plan of Care Start Date 03/12/19 Plan of Care End Date 05/12/19 Next Visit Focus/Plan Next Note Type Treatment Note Next Visit Plan Progress cane exercises, thoracic stretch in hook lying
--- NOTE | 2019-03-27 09:22 | PT-IP ANOTE ---
Pt is a no show for appointment. PT attempts to call pt. She does not answer and her VM does not allow messages.
--- NOTE | 2019-04-21 13:39 | PT-OP ANOTE ---
Pt has not attended past two PT appointments. PT tried x2 to contact pt to check in and ask about PT plan. Pt's phone is restricted to leave messages and will not allow PT to leave message. She has a scheduled appointment this Apr 23. If she no shows, will d/c PT.
--- NOTE | 2019-04-23 09:37 | PT.OTN ---
Current Diagnoses Unspecified osteoarthritis, unspecified site (04/23/19) Strain of muscle(s) and tendon(s) of the rotator cuff of unspecified shoulder, initial encounter (04/23/19) Physical Therapy Treatment Note PT-OP-A Visit Information Start: 03/12/19 11:09 Freq: Status: Active Protocol: Document 04/23/19 08:58 MB (Rec: 04/23/19 09:36 MB [id number]) Out-Patient Physical Therapy Visit Information Visit Information Visit Type Treatment Note Visit Start Time 08:58 Visit Stop Time 09:36 Total Visit Minutes 38 Visit Number 3 Number of UNEMPLOYMENT INSPECTOR Visits 0 PT-OP-B Current Condition Start: 03/12/19 11:09 Freq: Status: Active Protocol: Document 03/12/19 10:20 MB (Rec: 03/12/19 13:49 MB [id number]) Current Condition History of Current Condition Onset Date 6 months ago, remote right UE injury at work Current Complaints R UE pain, proximal anterolateral arm that occ freezes up History of Current Condition Pt states she has trouble telling things. She cannot report a precipitating event that caused right UE pain. She cannot state what makes the pain better or worse. Prior Treatments and Tests PT after work injury years ago . She does not know what part of her right arm she injured. Treatment Goals Patient/Caregiver Goals To decrease right arm pain. Pt also reports B hands inability to open occ. She also reports right foot pain that inhibits her from walking far. She denies injury to hands and foot. 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 She does not have trouble doing her job. She denies trouble lifting. She does report some discomfort with reaching up and over her right shoulder with her right hand and with reaching across to her left shoulder with showering. Current Functional Impairments (Reported) Functional Limitations- ADL's Pt reports trouble showering d /t trouble reaching up behind her right shoulder and over across her left shoulder. Personal Factors Other Personal Factors That May Effect Pt reports she is a poor Therapy/Recovery historian and has trouble communicating what bothers her . She is a primary Tagoodies speaker but reports she has no trouble communicating in Serbian and states she does not need park interpreter phone. Pt has variable work schedule that she states might interfere with therapy. Also, she has many areas of pain and also reports BHARDWAJ and feelings like she can't breathe such as when wearing bra. These all might be barriers to PT. PT-OP-C Subjective Start: 03/12/19 11:09 Freq: Status: Active Protocol: Document 04/23/19 08:58 MB (Rec: 04/23/19 09:36 MB [id number]) OP-PT Subjective Patient Comments Patient Comments Pt states that her work hours are changing again and she would like exercises to do at home. Pt reports a 15% improvement in arm pain since starting PT. PT-OP-K Range of Motion Start: 03/12/19 11:09 Freq: Status: Active Protocol: Document 03/12/19 10:20 MB (Rec: 03/12/19 13:49 MB [id number]) Cervical Spine Range of Motion Cervical Spine Active Testing Position Standing Flexion 21 Extension 35 Rotation Left 45 Rotation Right 35 Lateral Flexion Left 20 Lateral Flexion Right 17 Shoulder Goniometric Range of Motion Shoulder ROM Limitations Comments AROM in standing: shoulder flexion left 148 deg, right 142 deg; shoulder abduction B equal and WNLs; pt lacks 11 deg left elbow extension, reports child rutherford injury. PROM shoulder ER/IR in 90 deg abduction in supine: left WNLs ; right ER 32 deg and pt reports pect stretch and discomfort, no pain with IR and WNLs. Standing IR behind back: left hand with thumb 2 below inferior scapulae and right 3 below. She is right handed. PT-OP-M Strength Start: 03/12/19 11:09 Freq: Status: Active Protocol: Document 03/12/19 10:20 MB (Rec: 03/12/19 13:49 MB [id number]) Shoulder Strength Shoulder Manual Muscle Testing Right Flexion 4 Good Abduction (C5) 4 Good External Rotation 4 Good Internal Rotation 4 Good Left Flexion 5 Normal Abduction (C5) 5 Normal External Rotation 3+ Fair+ Internal Rotation 4 Good Elbow/Forearm Strength Elbow and Forearm Manual Muscle Testing Right Flexion (C6) 4 Good Extension (C7) 5 Normal Left Flexion (C6) 3+ Fair+ Extension (C7) 5 Normal Wrist Strength Wrist Manual Muscle Testing Right Flexion (C7) 5 Normal Extension (C6) 5 Normal Comments Pronation 3+/5, supintion 4/5 Left Flexion (C7) 5 Normal Extension (C6) 5 Normal Comments Pronation 5/5; supination 4/5 PT-OP-Q Treatments Start: 03/12/19 11:09 Freq: Status: Active Protocol: Document 04/23/19 08:58 MB (Rec: 04/23/19 09:36 MB [id number]) Therapeutic Exercises Other Exercises Cane exercise Comments Cane shoulder flexion in supine head/neck support Scapular retraction Comments Scapular retraction/thoracic lift wall and in supine with head/neck support Racquet ball massage Comments Racquet ball massage intrascapular, delt, infraspinatus; upper traps PT-OP-T Assessment and Plan Start: 03/12/19 11:09 Freq: Status: Active Protocol: Document 04/23/19 08:58 MB (Rec: 04/23/19 09:36 MB [id number]) Physical Therapy Assessment Goals Five Impairment Function Prison Goal (LTG) Pt will present with an improved QuickDASH score to reflect no more than 15% impairment by 05/12/19. 04/23/19: QuickDASH score reflects improved function from 34.09% impairment to 20. 45% impairment Four Chute Tender Goal (LTG) Pt will perform progressive HEP with I by 05/12/19. 04/23/19 Pt has been performing HEP 3x/wk. Three Impairment Strength Prison Goal (LTG) Pt will present with B shoulder flexion, abduction, ER and IR strength to 5/5 with MMT by 05/12/19. 04/23/19: MMT deferred d/t ongoing pain Two Impairment ROM Chute Tender Goal (LTG) Pt will present with AROM right shoulder flexion equal to the left by 05/12/19. 04/23/19: AROM shoulders this date: flexion: right 160 deg and left 170 deg; abduction: B 170 deg One Impairment Pain Chute Tender Goal (LTG) Pt will report a 90% improvement in right UE pain by 05/12/19. 04/23/19: Pt reports a 15% improvement in left shoulder pain since starting PT. Assessment Summary Assessment Pt has progressed towards the following PT goals since starting PT: performance of HEP, QuickDASH score, reports of improvement in pain and left shoulder ROM. MMT deferred this date in setting of ongoing left shoulder pain and short PT duration. Pt needs to d/c PT d/t work schedule changing and difficulty making appointments . She to con't PT exercises at home. Will d/c PT this date. Physical Therapy Plan Other Referrals/Consults Referrals/Consults Recommended In the future, pt may benefit from PT for her right foot pain. She may also benefit from OT for B hand complaints. Discharge Physical Therapy Discharge Comments Pt is unable to con't with PT d/t work
== END 2019-04-23 10:00 ==
LOC: PHYS 09:00
PROVIDERS: PCP Family Medicine; Visit Provider Family Medicine
DX: S46.019A Strain of muscle(s) and tendon(s) of the rotator cuff of unspecified shoulder, initial encounter (principal); M19.90 Unspecified osteoarthritis, unspecified site
CPT/HCPCS: 97110; 97140; 97161

== ENCOUNTER 2019-08-03 10:42 | Emergency (ER) | payer MEDICARE, OTHER, SELFPAY ==
[2019-08-03] VITALS (11 sets, daily range): BP systolic 133–250; BP diastolic 64–112; PULSE 58–82; RESP 12–22; TEMP 36.7; O2SAT 96–100; BMI 32.3
--- NOTE | 2019-08-03 10:55 | DI.RAD.S_ITS ---
PROCEDURE: XR CHEST 1V INDICATIONS: chest pain TECHNIQUE: One view of the chest was acquired. COMPARISON: None. FINDINGS: Surgical changes and devices: None. Lungs and pleura: Lungs are clear. No pleural effusions or pneumothorax. Mediastinum: Mediastinal contours appear normal. Heart size is normal. Bones and chest wall: No suspicious bony lesions. Overlying soft tissues appear unremarkable. IMPRESSION: No acute cardiopulmonary disease. Dictated by: Beti Navas M.D. on 08/03/2019 at 11:30 Approved by: Beti Navas M.D. on 08/03/2019 at 11:31
[2019-08-03 11:18] LABS: Add Manual Diff / Slide Review NO; Basophils Absolute Auto 100 /uL (0-100); Basophils Percent Auto 1.9 % (0-2); Eosinophils Absolute Auto 200 /uL (0-450); Lymphocytes Absolute Auto 2500 /uL (1100-4500); Lymphocytes Percent Auto 36.3 % (25-40); Mean Corpuscular HGB Conc 34.1 % (30-36); Mean Corpuscular Hemoglobin 29.9 PG (26-34); Mean Corpuscular Volume 87.6 fL (80-100); Monocytes Absolute Auto 600 /uL (0-900); Monocytes Percent Auto 9.1 % (3-14); Neutrophils Absolute Auto 3400 /uL (1500-7000); Neutrophils Percent Auto 49.7 % (50-75); Platelet Count 279 X10^3/uL (150-400); Red Blood Cell Count 4.68 X10^6/uL (4.0-5.2); Red Cell Distribution Width 13.1 % (11.6-14.8); White Blood Cell Count 6.8 X10^3/uL (4.5-11.0)
[2019-08-03 11:19] LABS: Prothrombin Time 11.2 SECONDS (10.1-12.7)
[2019-08-03 11:21] LABS: PTT Partial Thromboplastin Tim 28 SECONDS (26.4-36.2)
[2019-08-03 11:25] LABS: Alanine Aminotransferase 10 IU/L (<35); Albumin 4.3 g/dL (3.5-5.0); Albumin Globulin Ratio 1.1 (1.0-2.8); Alkaline Phosphatase 58 U/L (38-126); Aspartate Aminotransferase 27 IU/L (14-36); BUN Creatinine Ratio 21.4 (6-22); Bilirubin Total 0.7 mg/dL (0.2-1.3); Blood Urea Nitrogen 15 mg/dL (7-17); Calcium 9.5 mg/dL (8.4-10.2); Carbon Dioxide 28 mmol/L (22-32); Chloride 104 mmol/L (98-107); Creatine Kinase 78 U/L (30-135); Estimated Glomerular Filt Rate > 60.0 mL/min (>60); Globulin 3.9 g/dL (1.7-4.1); Glucose 110 mg/dL (80-110); HEMOLYSIS 33 (0-50); Lipase 127 U/L (23-300); Potassium 3.6 mmol/L (3.4-5.1); Sodium 141 mmol/L (137-145); Total Protein 8.2 g/dL (6.3-8.2)
--- NOTE | 2019-08-03 11:27 | DI.CT.S_ITS ---
PROCEDURE: CT ANGIO CHEST ABDOMEN PELVIS INDICATIONS: severe back pain with hypertension r/o aortic dissection TECHNIQUE: Precontrast 5 mm thick sections acquired from the lung apices to the iliac crests. After the administration of intravenous contrast, 2.5 mm thick sections again acquired from the lung apices to the iliac crests. Maximum intensity projection (MIP) oblique sagittal and coronal reformats were then acquired. For radiation dose reduction, the following was used: automated exposure control. COMPARISON: [facility], CT, CT SOFT TISSUE NECK W CON, 06/11/2018, 13:52. FINDINGS: Image quality: Excellent. AORTA: No acute aortic syndrome. No dissection. Moderate calcified atherosclerotic plaque. Mild plaque at the origins of the mesenteric arteries. CHEST: Lungs and pleura: No acute airspace opacities. Stable biapical scarring with mild right upper lobe bronchiectasis. No pleural effusions or pneumothorax. Central and peripheral airways are patent and normal in caliber. Mediastinum: Heart size is normal. No pericardial effusion. No mediastinal or hilar adenopathy by size criteria. Central pulmonary arteries are normal in size. No central pulmonary embolism. Esophagus is normal in caliber. No hiatal hernias. Bones and chest wall: No axillary adenopathy by size criteria. Thyroid gland is unremarkable. No suspicious bony lesions. No vertebral body compression fractures. ABDOMEN: Vasculature: Celiac trunk and mesenteric arteries are patent. Renal arteries are also patent. Solid organs: Liver is normal in size and enhancement. Left lobe hypodense foci measuring 1 cm most likely represents a cyst or hemangioma. Gallbladder is unremarkable. Biliary system is non dilated. Hyperenhancing nodule in the tail the pancreas measuring 0.5 cm, (5/87). Small adjacent splenule. Spleen is normal in size and enhancement. No adrenal nodules. Both kidneys are normal in size and enhancement, without hydronephrosis. Lobular contour of the right kidney may be due to scarring. Peritoneum and bowel: No free fluid or air. Bowel loops are normal in caliber and wall thickness. Nodes and vessels: No retroperitoneal or mesenteric adenopathy by size criteria. Inferior vena cava is normal in morphology. Miscellaneous: No ventral hernias. PELVIS: Genitourinary: Bladder wall thickness is normal. Retroverted uterus. Miscellaneous: No inguinal hernias or adenopathy. No ventral hernias. Bones: No suspicious bony lesions. No vertebral body compression fractures. IMPRESSION: 1. No acute aortic syndrome. 2. Stable pulmonary scarring at the upper lobes. No acute airspace opacity. 3. Hyperenhancing nodule in the tail of pancreas measuring 0.5 cm. Differential diagnosis includes small neuroendocrine tumor, intra-pancreatic splenule, less likely small pseudoaneurysm. -This finding can be further evaluated with dedicated 3-phase CT of the pancreas on a nonemergent basis. 4. No free fluid in the abdomen or pelvis. Comment: Findings were discussed with Harley Biswas at the time of dictation. Dictated by: Pavan Davey M.D. on 08/03/2019 at 12:04 Approved by: Pavan Davey M.D. on 08/03/2019 at 12:20
--- NOTE | 2019-08-03 11:34 | PC.NURSE ---
patient reports some tingling in lower extremeties. States she has had this for some time prior to back pain. She states she was lifting heavy boxes yesterday and her back started hurting. Pain is increasing with time. Denies changes in bowel or bladder.
[2019-08-03 11:36] LABS: Troponin I < 0.012 ng/mL (0.01-0.034)
[2019-08-03] MEDS: NITROGLYCERIN OINT 1 INCH/GM OINT...G. TOP (12:16)
[2019-08-03] MEDS: MORPHINE 4 MG/ML INJ IV (12:17)
[2019-08-03] MEDS: CYCLOBENZAPRINE 10 MG TABLET PO (12:17)
--- NOTE | 2019-08-03 12:53 | ED_ITS ---
HPI - Back Pain/Injury General Chief Complaint: Back Pain/Injury Stated Complaint: back pain goes down arm Time Seen by Provider: 08/03/19 11:13 Source: patient History of Present Illness HPI Narrative: CC: Right-sided back pain. HPI: The patient is a 63-year-old female who presented to the emergency department with severe right-sided back pain. The pain is located in her thoracic back. It was sharp in nature. It was unrelieved by Solanpas patches. She also presented with severe hypertension. She describes the pain as sharp. She denies any fall or injury. The patient states that at work she lifts heavy objects frequently. She has had no headache neck pain jaw pain shoulder pain arm pain cough. The pain is worse with movement and cough. She denies a history of diabetes mellitus stroke congestive heart failure myocardial infarction but admits to history of hypertension. She states that she had TB in [place]. She denies a history of hepatitis or HIV. She does not smoke cigarettes drink alcohol or use any drugs. She has had no fever chills or sweats but has had intermittent chest pain associated with a dry unproductive cough and shortness of breath. She has had no abdominal pain nausea vomiting. She has had diarrhea but denies any melena hematochezia or urinary symptoms. Related Data Home Medications Medication Instructions Recorded Confirmed aspirin 81 mg PO DAILY 08/03/19 08/03/19 losartan [Cozaar] 100 mg PO DAILY 08/03/19 08/03/19 metoprolol succinate [Toprol XL] 100 mg PO DAILY 08/03/19 08/03/19 Previous Rx's Medication Instructions Recorded cyclobenzaprine 10 mg PO TID PRN #15 tab 08/03/19 naproxen [Naprosyn] 500 mg PO BID PRN #20 tab 08/03/19 tramadol 50 mg PO Q6H PRN #12 tab 08/03/19 Allergies Allergy/AdvReac Type Severity Reaction Status Date / Time acetaminophen [ACETAMINOPHEN] Allergy Severe hives, Verified 02/06/19 13:33 puritis crab [CRAB] Allergy Severe hives, Verified 02/06/19 13:33 puritis Penicillins [PENICILLINS] Allergy Severe hives, Verified 02/06/19 13:33 puritis Sulfa (Sulfonamide Allergy Severe hives, Verified 02/06/19 13:33 Antibiotics) puritis [SULFA (SULFONAMIDE ANTIBIOTICS)] Review of Systems Review of Systems Narrative: All review of systems were negative except for those mentioned in the history of present illness. Patient History Medical History Essential hypertension (Chronic 04/15/15) History of active tuberculosis (Acute) History of vaginal delivery (Resolved) Hyperlipidemia (Chronic) Hypertension (Chronic) Mixed hyperlipidemia (Chronic 07/22/15) Family History Father Stroke Mother Aneurysm Social History household members: spouse and family Smoking Status: Never smoker Smoking Status: Never smoker alcohol intake frequency: 0-2 drinks per day Substance Use Type: does not use Exam Narrative Exam Narrative: PHYSICAL EXAM: CONSTITUTIONAL: Awake, Alert, Oriented, Coherent, Cooperative in mild distress. HEAD: AT/NC EENT: PERRL, FROM of eyes, no discharge, no nystagmus Oral mucosa is moist and pink, posterior pharynx is without erythema or exudate. NECK: Supple, no obvious JVD, Trachea is midline without stridor, no palpable LN or masses. SPINE: No gross deformity, no palpable tenderness of the cervical, thoracic, lumbar or sacral spine. No CVA tenderness. THORAX: There is no chest wall deformity. Her right posterior ribs are tender to palpation. There is no costovertebral angle tenderness.. LUNGS: C breath sounds are decreased but they are clear and symmetrical. HEART: Normal heart tones, regular rhythm and rate without murmur. ABDOMEN: Soft, non-tender, normal bowel sounds without guarding, rebound, rigidity or palpable mass EXTREMITIES: No edema, cyanosis, deformity or tenderness. SKIN: No rash, bruising, petechiae or purpura. NEURO: Awake, alert, oriented, conversive, cranial nerves II-XII are symmetrical and normal, moves all 4 extremities and is ambulatory Initial Vital Signs Initial Vital Signs: Vital Signs Temperature 98.1 F 08/03/19 10:48 Pulse Rate 68 08/03/19 10:48 Respiratory Rate 18 08/03/19 10:48 Blood Pressure 250/110 H 08/03/19 10:48 Pulse Oximetry 99 08/03/19 10:48 Course Course Course Narrative: 1255: Radiology called and stated that the patient's has no lesion or dissection involving the aorta. The patient however does have a hyp erdense enhancing lesion in the tail of the pancreas. A multi phase CT of the pancreas or possible MRI will need to be obtained in the future. 1337: The patient is a very poor historian. The patient is now complaining that she has some chest discomfort tightness that she cannot describe. Her rep eat EKG shows that she has a sinus rhythm with a ventricular rate of 72 intervals are normal QTC is 440 2:00 a.m. is normal. She has some moderate ST segment depressions in leads V3 V4 V5 and V6. A troponin has been ordered. Her blood pressure has come down to 189/90. She believes that the nitropaste is causing her the abnormal chest feeling so that will be removed. The patient has received 20 of hydralazine for her blood pressure 30 of Toradol for her pain and discomfort 10 of cyclobenzaprine, 4 mg of Zofran for nausea and vomiting and 4 mg of morphine. According to her daughter her back pain has resolved. 1540 the patient's blood pressure is significantly improved. She has been ambu lating multiple times to the bathroom. Her repeat troponin is unchanged. The patient will be discharged home to be seen in follow-up by her primary care physician placed on cyclobenzaprine as a muscle relaxant Naprosyn for pain and and rescue Palmer tablets. The patient will need to see her primary care physician for referral to physical therapy. Orders Ordered: ED Orders 08/03/19 11:27 CT angio chest abdomen pelvis Stat 08/03/19 14:05 Troponin I Stat Discontinued Medications Cyclobenzaprine HCl (Flexeril) 10 mg PO NOW ONE Stop: 08/03/19 11:24 Last Admin: 08/03/19 12:17 Dose: 10 mg Documented by: JOHANNY Hydralazine HCl (Apresoline) 20 mg IV NOW ONE Stop: 08/03/19 12:51 Last Admin: 08/03/19 12:56 Dose: 20 mg Documented by: TAMANNA Lisinopril (Zestril) 20 mg PO NOW ONE Stop: 08/03/19 13:22 Last Admin: 08/03/19 16:11 Dose: Not Given Documented by: BIN Morphine Sulfate (Morphine) 4 mg IV NOW ONE Stop: 08/03/19 11:24 Last Admin: 08/03/19 12:17 Dose: 4 mg Documented by: JOHANNY Nitroglycerin (Nitro-Bid) 1 inch TOP NOW ONE Stop: 08/03/19 11:24 Last Admin: 08/03/19 12:16 Dose: 1 inch Documented by: JOHANNY Ondansetron HCl (Zofran) 4 mg IV NOW ONE Stop: 08/03/19 12:59 Last Admin: 08/03/19 13:02 Dose: 4 mg Documented by: TAMANNA Vital Signs Vital signs: Vital Signs - 8 hr 08/03/19 12:16 08/03/19 12:45 08/03/19 12:56 Pulse Rate 63 58 L 60 Respiratory Rate 14 Blood Pressure 216/106 H Blood Pressure [Left Arm] 218/107 H Pulse Oximetry 96 08/03/19 13:30 08/03/19 13:45 08/03/19 15:14 Pulse Rate 81 74 76 Respiratory Rate 19 16 Blood Pressure 189/91 H Blood Pressure [Left Arm] 175/81 H 133/64 Pulse Oximetry 98 100 08/03/19 15:30 08/03/19 16:00 Pulse Rate 75 82 Respiratory Rate 12 20 Blood Pressure Blood Pressure [Left Arm] 134/65 163/77 H Pulse Oximetry 100 97 MDM - Back Pain/Injury Lab Data Result diagrams: 08/03/19 11:05 08/03/19 11:05 Labs: Lab Results 08/03/19 08/03/19 08/03/19 Range/Units 11:05 11:05 11:05 WBC 6.8 (4.5-11.0) X10^3/uL RBC 4.68 (4.0-5.2) X10^6/uL Hgb 14.0 (12.0-16.0) g/dL Hct 41.0 (36-46) % MCV 87.6 (80-100) fL MCH 29.9 (26-34) PG MCHC 34.1 (30-36) % RDW 13.1 (11.6-14.8) % Plt Count 279 (150-400) X10^3/uL Neut % (Auto) 49.7 L (50-75) % Lymph % (Auto) 36.3 (25-40) % Hemphill % (Auto) 9.1 (3-14) % Eos % (Auto) 3.0 (2-4) % Baso % (Auto) 1.9 (0-2) % Neut # (Auto) 3400 (4444-3960) /uL Lymph # (Auto) 2500 (9886-2726) /uL Hemphill # (Auto) 600 (0-900) /uL Eos # (Auto) 200 (0-450) /uL Baso # (Auto) 100 (0-100) /uL PT 11.2 (10.1-12.7) SECONDS INR 1.0 (0.9-1.3) APTT 28 (26.4-36.2) SECONDS Sodium 141 (137-145) mmol/L Potassium 3.6 (3.4-5.1) mmol/L Chloride 104 (98-107) mmol/L Carbon Dioxide 28 (22-32) mmol/L BUN 15 (7-17) mg/dL Creatinine 0.70 (0.52-1.04) mg/dL Estimated GFR > 60.0 (>60) mL/min BUN/Creatinine Ratio 21.4 (6-22) Glucose 110 (80-110) mg/dL Calcium 9.5 (8.4-10.2) mg/dL Total Bilirubin 0.7 (0.2-1.3) mg/dL AST 27 (14-36) IU/L ALT 10 (<35) IU/L Alkaline Phosphatase 58 (38-126) U/L Total Creatine Kinase 78 (30-135) U/L CK-MB (CK-2) TNP CK-MB (CK-2) Rel Index TNP Troponin I < 0.012 (0.01-0.034) ng/mL Total Protein 8.2 (6.3-8.2) g/dL Albumin 4.3 (3.5-5.0) g/dL Globulin 3.9 (1.7-4.1) g/dL Albumin/Globulin Ratio 1.1 (1.0-2.8) Lipase 127 (23-300) U/L 08/03/19 Range/Units 14:05 WBC (4.5-11.0) X10^3/uL RBC (4.0-5.2) X10^6/uL Hgb (12.0-16.0) g/dL Hct (36-46) % MCV (80-100) fL MCH (26-34) PG MCHC (30-36) % RDW (11.6-14.8) % Plt Count (150-400) X10^3/uL Neut % (Auto) (50-75) % Lymph % (Auto) (25-40) % Hemphill % (Auto) (3-14) % Eos % (Auto) (2-4) % Baso % (Auto) (0-2) % Neut # (Auto) (7694-5247) /uL Lymph # (Auto) (9727-6346) /uL Hemphill # (Auto) (0-900) /uL Eos # (Auto) (0-450) /uL Baso # (Auto) (0-100) /uL PT (10.1-12.7) SECONDS INR (0.9-1.3) APTT (26.4-36.2) SECONDS Sodium (137-145) mmol/L Potassium (3.4-5.1) mmol/L Chloride (98-107) mmol/L Carbon Dioxide (22-32) mmol/L BUN (7-17) mg/dL Creatinine (0.52-1.04) mg/dL Estimated GFR (>60) mL/min BUN/Creatinine Ratio (6-22) Glucose (80-110) mg/dL Calcium (8.4-10.2) mg/dL Total Bilirubin (0.2-1.3) mg/dL AST (14-36) IU/L ALT (<35) IU/L Alkaline Phosphatase (38-126) U/L Total Creatine Kinase (30-135) U/L CK-MB (CK-2) CK-MB (CK-2) Rel Index Troponin I < 0.012 (0.01-0.034) ng/mL Total Protein (6.3-8.2) g/dL Albumin (3.5-5.0) g/dL Globulin (1.7-4.1) g/dL Albumin/Globulin Ratio (1.0-2.8) Lipase (23-300) U/L Urine Dip Bedside Urine Glucose Negative Bedside Urine Bilirubin - Negative Bedside Urine Ketone - Negative Urine Specific [place] 1.010 Bedside Urine Occult Blood - Negative Bedside Urine pH 6.5 Bedside Urine Protein +/- 15 Bedside Urine Urobilinogen - Negative Bedside Urine Nitrite - Negative Bedside Urine Leukocytes - Negative Esterase Discharge Plan Departure Patient Disposition: Home Clinical Impression: Essential hypertension Thoracic back pain Qualifiers: Chronicity: unspecified Back pain laterality: right Qualified Code(s): M54.6 - Pain in thoracic spine Low back pain Qualifiers: Chronicity: acute Back pain laterality: right Sciatica presence: without sciatica Qualified Code(s): M54.5 - Low back pain Discharge Date/Time: 08/03/19 16:29 Instructions: Essential Hypertension, DI for Muscle Strain, DI for Back Strain or Sprain Activity Restrictions/Additional Instructions: 1. Follow-up with your family physician. Your CT scan that revealed no acute pathology in your chest and you do not have an aneurysm. You do have hypertension and need to continue to take your medications. Your EKGs and card iac enzymes were normal in you are not having a heart attack. 2. Take your high blood pressure medicines as prescribed by your primary care physician. 3. For pain take Naprosyn 500 mg twice a day as needed for pain and discomfort. 4. For muscle spasms take cyclobenzaprine 10 mg 3 times a day as needed. 5. Take Palmer 10/17/2024 for pain and discomfort unrelieved by the cyclobenzaprine and Naprosyn. 6. If you develop worsening pain, fever, shortness of breath, feeling faint or passing-out you need to return to the emergency department. Prescriptions: New naproxen [Naprosyn] 500 mg tablet 500 mg PO BID PRN (Reason: pain) Qty: 20 RF: 0 cyclobenzaprine 10 mg tablet 10 mg PO TID PRN (Reason: muscle spasm) Qty: 15 RF: 0 tramadol 50 mg tablet 50 mg PO Q6H PRN (Reason: pain) Qty: 12 RF: 0 No Action metoprolol succinate [Toprol XL] 100 mg tablet extended release 24 hr 100 mg PO DAILY RF: 0 losartan [Cozaar] 100 mg tablet 100 mg PO DAILY RF: 0 aspirin 81 mg Tablet,Delayed Release (Dr/Ec) 81 mg PO DAILY RF: 0 Referrals: Adriana Carrillo DO [Primary Care Provider] -
[2019-08-03] MEDS: HYDRALAZINE 20 MG/ML VIAL IV (12:56)
[2019-08-03] MEDS: ONDANSETRON 4 MG/2 ML INJ IV (13:02)
--- NOTE | 2019-08-03 13:37 | PC.NURSE ---
NTG paste removed per Dr Biswas.
--- NOTE | 2019-08-03 13:42 | PC.NURSE ---
Lisinopril held per Dr. Biswas.
[2019-08-03 14:44] LABS: Troponin I < 0.012 ng/mL (0.01-0.034)
--- NOTE | 2019-08-03 15:16 | PC.NURSE ---
Pt ambulates to bathroom, GARAGE HELPER reports she vomited there. Pt refuses furthe medication, states she tired and a little bit dizzy when she walks.
== END 2019-08-03 16:29 | disposition home or self-care (01) ==
PROVIDERS: Emergency Provider Emergency Medicine; PCP Family Medicine
DX: I10 Essential (primary) hypertension (principal); R07.9 Chest pain, unspecified; M54.6 Pain in thoracic spine; M54.5 Low back pain
CPT/HCPCS: 36415; 71045; 71275; 74174; 80053; 81003; 82550; 83690; 84484; 85025; 85610; 85730; 93005; 96374; 96375; 99285; J0360; J2270; J2405; Q9967

== ENCOUNTER → 2019-08-06 12:07 | Outpatient (CLI) | payer MEDICARE, OTHER, SELFPAY ==
--- NOTE | 2019-08-06 12:09 | DI.CT.S_ITS ---
PROCEDURE: CT ABDOMEN W CON INDICATIONS: Incidental finding of pancreatic mass TECHNIQUE: After the administration of intravenous contrast, 5 mm thick sections acquired from the diaphragm to the iliac crests. 5 mm coronal and sagittal reformats were performed. For radiation dose reduction, the following was used: automated exposure control, adjustment of mA and/or kV according to patient size. COMPARISON: [facility], CT, CT ANGIO CHEST ABDOMEN PELVIS, 08/03/2019, 11:28. FINDINGS: Image quality: Excellent. Lung bases: Lung bases are clear. Heart size is normal. Solid organs: The 5 mm hyperenhancing nodule in the pancreatic tail seen on 08/03/2019 is less conspicuous and not well visualized on the current exam. Pancreas changes normal size and enhancement. Mild hepatic steatosis. Liver is normal in size. There is a 1 cm hypodense nodule in the left hepatic lobe, most likely a cyst. Gallbladder is normal. Biliary system is non dilated. Spleen is normal in size and enhancement. No adrenal nodules. Kidneys demonstrate normal size and enhancement, without hydronephrosis. Peritoneum and bowel: Bowel loops demonstrate normal wall thickness and caliber. No free fluid or air. Nodes and vessels: No retroperitoneal or mesenteric adenopathy by size criteria. Aorta and inferior vena cava are normal in size. Miscellaneous: No ventral hernias. IMPRESSION: The 5 mm hyperenhancing nodule in the pancreatic tail seen on 08/03/2019 is less conspicuous and not well visualized on the current exam. This might be due to technical factors as the timing of the contrast bolus is off on the current exam (the patient had a small IV line limiting the rate of contrast injection. A small neuroendocrine tumor cannot be excluded. A short-term followup MRI is suggested. Dictated by: Beti Navas M.D. on 08/06/2019 at 13:37 Transcribed by: JE on 08/06/2019 at 13:55 Approved by: Beti Navas M.D. on 08/06/2019 at 15:27
== END ==
PROVIDERS: PCP Family Medicine; Referring Provider Family Medicine; Visit Provider Family Medicine
DX: K86.89 Other specified diseases of pancreas (principal); K76.0 Fatty (change of) liver, not elsewhere classified
CPT/HCPCS: 74160

== ENCOUNTER 2019-08-10 11:54 | Emergency (ER) | payer MEDICARE, OTHER, SELFPAY ==
[2019-08-10 12:05] VITALS: BP 218/135; PULSE 76; RESP 20; TEMP 36.4; O2SAT 97
--- NOTE | 2019-08-10 15:30 | ED.ALLEREA ---
HPI - Allergic Reaction General Chief complaint: Allergic Reaction Stated complaint: Allergic Reaction to Medication Time Seen by Provider: 08/10/19 15:17 Source: patient Mode of arrival: Ambulatory Limitations: no limitations History of Present Illness HPI narrative: 63-year-old female comes emergency department with complaint of allergic reaction to medication. Patient comes in she started tramadol did not seem to have any issues after several doses then hook a dose of cyclobenzaprine and within 12 hours developed an itchy rash on her torso as well as extremities. Patient says no fevers. No swelling of her lips mouth or oropharynx. No wheezing or difficulty breathing. She did have some diarrhea last night. She had some vomiting about a week ago but none recently. She has not had any blistering. Patient states that she does not any chest pain or pressure. She has not had any swelling in her extremities. She was started on these medications for back pain. She is accompanied by her daughter. Related Data Home Medications Medication Instructions Recorded Confirmed aspirin 81 mg PO DAILY 08/03/19 08/10/19 losartan [Cozaar] 100 mg PO DAILY 08/03/19 08/10/19 metoprolol succinate [Toprol XL] 100 mg PO DAILY 08/03/19 08/10/19 Previous Rx's Medication Instructions Recorded cyclobenzaprine 10 mg PO TID PRN #15 tab 08/03/19 naproxen [Naprosyn] 500 mg PO BID PRN #20 tab 08/03/19 tramadol 50 mg PO Q6H PRN #12 tab 08/03/19 prednisone 50 mg PO DAILY #5 tab 08/10/19 Allergies Allergy/AdvReac Type Severity Reaction Status Date / Time acetaminophen [ACETAMINOPHEN] Allergy Severe hives, Verified 02/06/19 13:33 puritis crab [CRAB] Allergy Severe hives, Verified 02/06/19 13:33 puritis Penicillins [PENICILLINS] Allergy Severe hives, Verified 02/06/19 13:33 puritis Sulfa (Sulfonamide Allergy Severe hives, Verified 02/06/19 13:33 Antibiotics) puritis [SULFA (SULFONAMIDE ANTIBIOTICS)] cyclobenzaprine AdvReac Hives Verified 08/10/19 12:11 [From Flexeril] Review of Systems Review of Systems ROS Unobtainable: All systems reviewed & are unremarkable except as noted in HPI and below Patient History Medical History Essential hypertension (Chronic 04/15/15) History of active tuberculosis (Acute) History of vaginal delivery (Resolved) Hyperlipidemia (Chronic) Hypertension (Chronic) Mixed hyperlipidemia (Chronic 07/22/15) Pancreatic mass (Acute) Social History household members: spouse and family Smoking Status: Never smoker Smoking Status: Never smoker alcohol intake frequency: 0-2 drinks per day Substance Use Type: does not use Exam Narrative Exam Narrative: GEN: well nourished, well appearing female, alert and oriented x 3, patient appears to be in mild distress. HEENT: Atraumatic, pupils are equal round reactive to light, extraocular movements are intact, nares are clear, Throat is clear without any exudates, erythema, tonsillar enlargement or uvular deviation, no swelling of lips or mouth. No hoarseness or muffled voice. HEART: Regular rate and rhythm without murmur, clicks, rubs. No carotid bruits, pulses are equal in upper and lower extremities LUNGS:Lungs clear to auscultation, no wheezes, rales, crackles, chest moves symmetrically ABD:bowel sounds normal, soft, non-tender, no guarding, rebound, rigidity, no masses noted, no hepatosplenomegaly :No CVA tenderness MSCL: Non-tender, no muscle atrophy, muscles strength 5/5 upper and lower extremities, full range of motion, normal gait NEURO:CN 2-12 intact, sensation normal SKIN: Patient has erythematous patchy rash without vesicles or blistering. It is on her torso anterior and posteriorly as well as upper extremities and lower extremities it does not extend to the hands or feet. Patient has a little bit across her upper chest. She does not any involvement of the face. Initial Vital Signs Initial Vital Signs: Vital Signs Temperature 97.6 F 08/10/19 12:05 Pulse Rate 76 08/10/19 12:05 Respiratory Rate 20 08/10/19 12:05 Blood Pressure 218/135 H 08/10/19 12:05 Pulse Oximetry 97 08/10/19 12:05 Course Orders Ordered: Discontinued Medications Prednisone (Deltasone) 60 mg PO NOW ONE Stop: 08/10/19 15:37 Last Admin: 08/10/19 15:43 Dose: 60 mg Documented by: JODIE Vital Signs Vital signs: Vital Signs - 8 hr 08/10/19 12:05 08/10/19 16:01 Temperature 97.6 F Pulse Rate 76 69 Respiratory Rate 20 18 Blood Pressure 218/135 H 203/104 H Pulse Oximetry 97 98 MDM - Allergic Reaction MDM Narrative Medical decision making narrative: Discussed with patient suspect a medication reaction cyclobenzaprine seems the more likely culprit at this time as she had several doses of tramadol without issue and had 1 dose of cyclobenzaprine. She continues to have symptoms she is to also stop the tramadol. She is started on prednisone which she states she has tolerated in the past. Zantac twice daily as well as Benadryl as needed for itching. Feel comfortable the plan discussed I would not like to add any new medications for her back until these symptoms have resolved. She is hypertensive initially here in the department she has been taking her medications. Discharge Plan Departure Patient Disposition: Home Clinical Impression: Hypertension Allergic drug reaction Qualifiers: Encounter type: initial encounter Qualified Code(s): T78.40XA - Allergy, unspecified, initial encounter Discharge Date/Time: 08/10/19 16:01 Instructions: DI for Adverse Drug Reaction -- Allergic Activity Restrictions/Additional Instructions: Follow-up with your physician in the next several days for recheck if her symptoms are not resolved. Stop your muscle relaxant, if your continuing to have symptoms also stop the tramadol. Take prednisone once daily until gone. Prescription sent to [facility] in [place]. You may take Zantac 150 mg twice daily x5 days. This is [id number]. You may also take Benadryl 1-2 tablets [id number] every 6-8 hours as needed for itching. Return to ER for fevers greater 100.4 F increasing rash, swelling of the lips mouth or airway, wheezing or shortness of breath, persistent vomiting, black or bloody stool swelling of her extremities, blistering or other new or concerning symptoms. Prescriptions: New prednisone 50 mg tablet 50 mg PO DAILY Qty: 5 RF: 0 No Action metoprolol succinate [Toprol XL] 100 mg tablet extended release 24 hr 100 mg PO DAILY RF: 0 losartan [Cozaar] 100 mg tablet 100 mg PO DAILY RF: 0 aspirin 81 mg Tablet,Delayed Release (Dr/Ec) 81 mg PO DAILY RF: 0 naproxen [Naprosyn] 500 mg tablet 500 mg PO BID PRN (Reason: pain) Qty: 20 RF: 0 cyclobenzaprine 10 mg tablet 10 mg PO TID PRN (Reason: muscle spasm) Qty: 15 RF: 0 tramadol 50 mg tablet 50 mg PO Q6H PRN (Reason: pain) Qty: 12 RF: 0 Referrals: Adriana Carrillo DO [Primary Care Provider] - Stand Alone Forms: Work Release Note
[2019-08-10] MEDS: predniSONE 20 MG TABLET 60 MG PO (15:43)
[2019-08-10 16:01] VITALS: BP 203/104; PULSE 69; RESP 18; O2SAT 98
== END 2019-08-10 16:01 | disposition home or self-care (01) ==
PROVIDERS: Emergency Provider Emergency Medicine; PCP Family Medicine
DX: T78.40XA Allergy, unspecified, initial encounter (principal); I10 Essential (primary) hypertension
CPT/HCPCS: 99283

== ENCOUNTER → 2019-08-21 15:49 | Outpatient (CLI) | payer MEDICARE, OTHER, SELFPAY ==
--- NOTE | 2019-08-21 15:51 | DI.MRI.S_ITS ---
PROCEDURE: MR ABDOMEN WO/W CON INDICATIONS: Pancreatic tail mass TECHNIQUE: Coronal HASTE, axial 2D FLASH in- and [id number]; axial breath-hold T2 FSE with fat saturation from the hepatic dome to the iliac crests. Oblique coronal thin-slice and radial thick slab HASTE through the biliary system. Dynamic axial VIBE during administration of contrast. Post-contrast coronal VIBE or 2D FLASH with fat saturation from the hepatic dome to the iliac crests. Optional diffusion weighted imaging and ADC may be performed. COMPARISON: [facility], CT, CT ANGIO CHEST ABDOMEN PELVIS, 08/03/2019, 11:28. [facility], CT, CT ABDOMEN W CON, 08/06/2019, 12:06. FINDINGS: Image quality: m Pancreas and biliary system: The prior CT scanning 08/03/19 that identified a small enhancing nodule measuring 5 mm at the anterior margin of the pancreatic tail was reviewed in detail, as was the subsequent abdominal CT 08/06/19. The 5 mm nodule is located exactly 1 cm leftward from a pancreatic tail lobulation that projects slightly anterior to the curvature of the pancreatic parenchyma, providing a landmark for localization of the expected site of abnormal enhancement. The current MR study shows no nodular enhancing structure in this area. As was noted in the report from the most recent CT scanning this could represent a manifestation of small size of the structure and difference in phase of contrast enhancement. No morphologic abnormality is seen. Solid organs: Liver is normal in size and enhancement. There is a small ovoid cyst at the upper left lateral hepatic segment posteriorly, also visible on prior CT scanning measuring approximately 5 mm AP and 1.1 cm transverse (prior series 5 image 75 from the 08/03/19 CT). Gallbladder appears normal. Spleen is normal in size and enhancement. No adrenal nodules. Kidneys are normal in size and enhancement, without hydronephrosis. Nodes and vessels: No retroperitoneal or mesenteric adenopathy by size criteria. Aorta and inferior vena cava are normal in size. Bowel and peritoneum: Unenhanced bowel loops are normal in caliber throughout. No free fluid. Lung bases: No basal pleural effusions. Heart size is normal. Bones and soft tissues: No ventral hernias. Bone marrow is normal in overall signal. IMPRESSION: A pancreatic tail 5 mm hyper enhancing lesion is not seen by current MR scanning. The structure may be below the threshold for accurate detection by MR scanning. A repeat arterial phase pancreatic protocol CT scan in 6 months could be obtained for further assessment. The initial CT scan convincingly did demonstrate presence of this small abnormality, in my opinion. If Dictated by: Benito Puga M.D. on 08/24/2019 at 13:02 Approved by: Beinto Puga M.D. on 08/24/2019 at 13:20
== END ==
PROVIDERS: PCP Family Medicine; Referring Provider Family Medicine; Visit Provider Family Medicine
DX: K86.89 Other specified diseases of pancreas (principal); K76.89 Other specified diseases of liver
CPT/HCPCS: 74183; A9579

== ENCOUNTER 2019-10-16 11:46 | Emergency (ER) | payer MEDICARE, OTHER, SELFPAY ==
[2019-10-16 12:09] VITALS: BP 168/66; PULSE 72; RESP 18; TEMP 37; O2SAT 99; BMI 24.2
--- NOTE | 2019-10-16 12:23 | ED_ITS ---
HPI - Neuro Symptoms/Deficit General Chief Complaint: Neuro Symptoms/Deficit Stated Complaint: Facial pain, swelling, and heat on L side Time Seen by Provider: 10/16/19 12:19 Source: patient Mode of arrival: Ambulatory Limitations: no limitations History of Present Illness HPI Narrative: This is a 64-year-old female who comes to the emergency department with complaint of facial pain on the left side of her face starting about 2 months ago. Patient states after she had MRI in the beginning of August she started noticing pain on the left side of her face. She states the 1st episode was pretty much just the left side of her nose but will radiate out into her scalp. She states that she has had several episodes they typically last 20- 45 minutes, the pain is quite severe she does have some tingling with it and then it will resolve. She states it feels like her eye is watering but when she feels or looks there is no tears. She has not appreciated any facial droop, she has not had any rashes or skin changes. She has not had any syncope. The pain does not radiate to her neck. Patient states that it is not on the right side of her face she states she does wear dentures she thought that this might be r elated but there does not seem to be any specific correlation between activities such as cleaning her mouth when replacing her dentures or blowing her nose. She has not had any fevers she has had some mild runny nose intermittently but no nasal congestion that she describes as significant. She has not had any sinus pressure. She has not had any other swelling. She does take medication for blood pressure as well as a daily aspirin. 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 Related Data Home Medications Medication Instructions Recorded Confirmed aspirin 81 mg PO DAILY 08/03/19 08/28/19 losartan [Cozaar] 100 mg PO DAILY 08/03/19 08/28/19 metoprolol succinate [Toprol XL] 100 mg PO DAILY 08/03/19 08/28/19 Previous Rx's Medication Instructions Recorded naproxen [Naprosyn] 500 mg PO BID PRN #20 tab 08/03/19 prednisone 50 mg PO DAILY #5 tab 08/10/19 tramadol 50 mg tablet 50 mg PO Q6H PRN #12 tab 08/14/19 gabapentin 300 mg PO TID #30 cap 10/16/19 prednisone See Rx Instructions .ROUTE 10/16/19 .COMPLEX #75 tab Allergies Allergy/AdvReac Type Severity Reaction Status Date / Time acetaminophen [ACETAMINOPHEN] Allergy Severe hives, Verified 10/16/19 12:09 puritis crab [CRAB] Allergy Severe hives, Verified 10/16/19 12:09 puritis morphine Allergy Severe Difficulty Verified 10/16/19 12:09 Breathing Penicillins [PENICILLINS] Allergy Severe hives, Verified 10/16/19 12:09 puritis Sulfa (Sulfonamide Allergy Severe hives, Verified 10/16/19 12:09 Antibiotics) puritis [SULFA (SULFONAMIDE ANTIBIOTICS)] cyclobenzaprine AdvReac Hives Verified 10/16/19 12:09 [From Flexeril] Review of Systems Review of Systems ROS Unobtainable: All systems reviewed & are unremarkable except as noted in HPI and below Patient History Medical History Bicipital tendinitis (Acute) Essential hypertension (Chronic 04/15/15) History of active tuberculosis (Acute) History of vaginal delivery (Resolved) Hyperlipidemia (Chronic) Hypertension (Chronic) Mixed hyperlipidemia (Chronic 07/22/15) Neuritis of right ulnar nerve (Acute) Pancreatic mass (Acute) Social History household members: spouse and family Smoking Status: Never smoker Smoking Status: Never smoker alcohol intake frequency: 0-2 drinks per day Substance Use Type: does not use Exam Narrative Exam Narrative: GEN: well nourished, well appearing female, alert and oriented x 3, patient appears to be in mild distress. HEENT: Atraumatic, pupils are equal round reactive to light, extraocular movements are intact, normal conjunctiva, nares are clear, TMs are clear with no fluid, there is no conjunctival pallor. Throat is clear without any exudates, erythema, tonsillar enlargement or uvular deviation, no facial droop. Moist mucous membranes. No facial droop. Clear speech. Patient did remove her de ntures, there is no ulcerations or skin changes to the palate or gums. Nontender to palpation. HEART: Regular rate and rhythm without murmur, clicks, rubs. Pulses equal upper extremities. LUNGS:Lungs clear to auscultation, no wheezes, rales, crackles, chest moves symmetrically ABD:bowel sounds normal, soft, non-tender, no guarding, rebound, rigidity, no masses noted, no hepatosplenomegaly :No CVA tenderness. MSCL: Non-tender, no muscle atrophy, muscles strength 5/5 upper and lower extremities, full range of motion, normal gait NEURO:CN 2-12 intact, sensation normal. SKIN: No rash, no erythema, no vesicles or blisters. Initial Vital Signs Initial Vital Signs: Vital Signs Temperature 98.6 F 10/16/19 12:09 Pulse Rate 72 10/16/19 12:09 Respiratory Rate 18 10/16/19 12:09 Blood Pressure 168/66 H 10/16/19 12:09 Pulse Oximetry 99 10/16/19 12:09 Course Orders Ordered: ED Orders 10/16/19 12:54 CT head/brain wo con Stat 10/16/19 13:20 Basic Metabolic Panel Stat C-Reactive Protein Quant Stat 10/16/19 14:05 Complete Blood Count AUTO DIFF Stat Erythrocyte Sedimentation Rate Stat Discontinued Medications Prednisone (Deltasone) 60 mg PO NOW ONE Stop: 10/16/19 16:14 Last Admin: 10/16/19 16:51 Dose: 60 mg Documented by: KORINAOTEM Vital Signs Vital signs: Vital Signs - 8 hr 10/16/19 12:09 10/16/19 13:47 10/16/19 16:01 Temperature 98.6 F Pulse Rate 72 63 64 Respiratory Rate 18 16 18 Blood Pressure 168/66 H Blood Pressure [Left Arm] 194/94 H 221/101 H Pulse Oximetry 99 99 98 10/16/19 17:03 Temperature Pulse Rate 65 Respiratory Rate 16 Blood Pressure Blood Pressure [Left Arm] 226/105 H Pulse Oximetry 99 MDM - Neuro Symptoms/Deficit Lab Data Result diagrams: 10/16/19 14:05 10/16/19 13:20 Labs: Lab Results 10/16/19 10/16/19 Range/Units 13:20 14:05 WBC 8.9 (4.5-11.0) X10^3/uL RBC 4.73 (4.0-5.2) X10^6/uL Hgb 13.8 (12.0-16.0) g/dL Hct 41.8 (36-46) % MCV 88.3 (80-100) fL MCH 29.1 (26-34) PG MCHC 32.9 (30-36) % RDW 13.0 (11.6-14.8) % Plt Count 274 (150-400) X10^3/uL Neut % (Auto) 47.5 L (50-75) % Lymph % (Auto) 35.7 (25-40) % Franklin % (Auto) 12.5 (3-14) % Eos % (Auto) 3.1 (2-4) % Baso % (Auto) 1.2 (0-2) % Neut # (Auto) 4200 (6296-8133) /uL Lymph # (Auto) 3200 (0334-1899) /uL Franklin # (Auto) 1100 H (0-900) /uL Eos # (Auto) 300 (0-450) /uL Baso # (Auto) 100 (0-100) /uL ESR 47 H (0-20) MM/HR Sodium 141 (137-145) mmol/L Potassium 3.4 (3.4-5.1) mmol/L Chloride 103 (98-107) mmol/L Carbon Dioxide 29 (22-32) mmol/L BUN 15 (7-17) mg/dL Creatinine 0.81 (0.52-1.04) mg/dL Estimated GFR > 60.0 (>60) mL/min BUN/Creatinine Ratio 18.5 (6-22) Glucose 107 (80-110) mg/dL Calcium 10.5 H (8.4-10.2) mg/dL C-Reactive Protein < 0.5 (<1.0) mg/dL [facility] Narrative Medical decision making narrative: Discussed with patient she has had what sounds like possibly trigeminal neuralgia but would recommend obtaining imaging, some basic blood work including ESR and CRP for evaluation for giant cell arteritis although this is less likely as her symptoms started her knows not really in the temporal region. Head CT is negative. CBC shows low lymphocytes, CMP shows a calcium at 10.5, Ca reactive protein is negative, ESR elevated at 47, spoke with general surgery with Dr. Velazco about setting patient up for temporal artery biopsy. Spoke with Dr. Velazco, she would be happy to see the patient she asked for her to call 1st thing Saturday morning to set up an appointment. Patient will likely have to be Covid tested before the biopsy but this will not occur until right before the biopsy so she does not wish to have the patient tested now she may require recurrent testing has asked to be 48 hours before the procedure. Fidelia scussed with patient, reasons to return strict return precautions. Plan for her to continue steroids and gabapentin as needed if she feels necessary for pain. Discharge Plan Departure Patient Disposition: Home Clinical Impression: Left facial pain Discharge Date/Time: 10/16/19 17:13 Instructions: Giant Cell Arteritis, FIDELIA for Trigeminal Neuralgia Activity Restrictions/Additional Instructions: I suspect that you may have trigeminal neuralgia, there is a possibility giant cell arteritis. Call the general surgery office between 830 and 10:30 a.m. on Saturday to set up an appointment for biopsy to evaluate for giant cell arteritis. You may take Tylenol and/or ibuprofen as needed for pain. Take steroids as prescribed until gone. You will need to discuss with her physician as you reached the end of your steroid taper if they need to alternate as often have to be on steroids for a long period of time. May take gabapentin 1 tablet 3 times daily for symptoms. Here being started at a very low dose you may increase to 2 tablets 3 times daily if you are not having any improvement over the next week. This medication can make you sleepy do not drive, perform hazardous activities or make any major decisions while taking it. Return for fevers greater 100.4 F, severe persistent symptoms or headaches, new rashes, blistering or other skin changes, vision changes, difficulty with speec h, new numbness when miss or tingling in your extremities or difficulty with movement or other new or concerning symptoms. Prescriptions: New gabapentin 300 mg capsule 300 mg PO TID Qty: 30 RF: 0 prednisone 10 mg tablet See Rx Instructions .ROUTE .COMPLEX Qty: 75 RF: 0 No Action tramadol 50 mg tablet 50 mg PO Q6H PRN (Reason: pain) Qty: 12 RF: 0 metoprolol succinate [Toprol XL] 100 mg tablet extended release 24 hr 100 mg PO DAILY RF: 0 losartan [Cozaar] 100 mg tablet 100 mg PO DAILY RF: 0 aspirin 81 mg Tablet,Delayed Release (Dr/Ec) 81 mg PO DAILY RF: 0 naproxen [Naprosyn] 500 mg tablet 500 mg PO BID PRN (Reason: pain) Qty: 20 RF: 0 prednisone 50 mg tablet 50 mg PO DAILY Qty: 5 RF: 0 Referrals: [place] Velazco MD [Physician] - Adriana Carrillo DO [Primary Care Provider] - Stand Alone Forms: Work Release Note
--- NOTE | 2019-10-16 12:53 | PC.NURSE ---
pt reports 3 month history of pain on the left side of her face that starts when she does certain movements. states today it got worse. pain is resolved now. fast negative
--- NOTE | 2019-10-16 12:54 | DI.CT.S_ITS ---
PROCEDURE: CT HEAD/BRAIN WO CON INDICATIONS: left sided facial, pain intermittent x 1-2 months TECHNIQUE: Noncontrast 4.5 mm thick angled axial sections acquired from the foramen magnum to the vertex, with coronal and sagittal reformats. For radiation dose reduction, the following was used: automated exposure control, adjustment of mA and/or kV according to patient size. COMPARISON: None. FINDINGS: Image quality: Excellent. CSF spaces: Basal cisterns are patent. No extra-axial fluid collections. The ventricles are symmetric in size and shape. Brain: No intracranial bleeds or masses. There is cerebral volume loss for age, with resultant ventricular and sulcal prominence. There are periventricular and deep white matter chronic small vessel ischemic changes. There is intracranial internal carotid artery atherosclerosis. Skull and face: Calvarium and visualized facial bones appear intact, without suspicious lesions. Sinuses: Visualized sinuses and mastoids are clear. IMPRESSION: No acute intracranial disease process. Dictated by: Sobeida Loredo MD, PhD on 10/16/2019 at 14:00 Approved by: Sobeida Loredo MD, PhD on 10/16/2019 at 14:02
[2019-10-16 13:44] LABS: BUN Creatinine Ratio 18.5 (6-22); Blood Urea Nitrogen 15 mg/dL (7-17); Calcium 10.5 mg/dL (8.4-10.2); Carbon Dioxide 29 mmol/L (22-32); Chloride 103 mmol/L (98-107); Estimated Glomerular Filt Rate > 60.0 mL/min (>60); Glucose 107 mg/dL (80-110); HEMOLYSIS < 15 (0-50); Potassium 3.4 mmol/L (3.4-5.1); Sodium 141 mmol/L (137-145)
[2019-10-16 13:47] VITALS: BP 194/94; PULSE 63; RESP 16; O2SAT 99
[2019-10-16 14:01] LABS: C-Reactive Protein Quant < 0.5 mg/dL (<1.0)
[2019-10-16 14:13] LABS: Add Manual Diff / Slide Review NO; Basophils Absolute Auto 100 /uL (0-100); Basophils Percent Auto 1.2 % (0-2); Eosinophils Absolute Auto 300 /uL (0-450); Eosinophils Percent Auto 3.1 % (2-4); Hematocrit 41.8 % (36-46); Hemoglobin 13.8 g/dL (12.0-16.0); Lymphocytes Absolute Auto 3200 /uL (1100-4500); Lymphocytes Percent Auto 35.7 % (25-40); Mean Corpuscular HGB Conc 32.9 % (30-36); Mean Corpuscular Hemoglobin 29.1 PG (26-34); Mean Corpuscular Volume 88.3 fL (80-100); Monocytes Absolute Auto 1100 /uL (0-900); Monocytes Percent Auto 12.5 % (3-14); Neutrophils Absolute Auto 4200 /uL (1500-7000); Neutrophils Percent Auto 47.5 % (50-75); Platelet Count 274 X10^3/uL (150-400); Red Blood Cell Count 4.73 X10^6/uL (4.0-5.2); White Blood Cell Count 8.9 X10^3/uL (4.5-11.0)
[2019-10-16 14:43] LABS: Erythrocyte Sedimentation Rate 47 MM/HR (0-20)
[2019-10-16 16:01] VITALS: BP 221/101; PULSE 64; RESP 18; O2SAT 98
[2019-10-16] MEDS: predniSONE 20 MG TABLET 60 MG PO (16:51)
[2019-10-16 17:03] VITALS: BP 226/105; PULSE 65; RESP 16; O2SAT 99
== END 2019-10-16 17:13 | disposition home or self-care (01) ==
PROVIDERS: Emergency Provider Emergency Medicine; PCP Family Medicine
DX: R51 Headache (principal)
CPT/HCPCS: 36415; 70450; 80048; 85025; 85651; 86140; 99284

== ENCOUNTER → 2019-11-02 09:09 | Outpatient (CLI) | payer MEDICARE, OTHER, SELFPAY ==
[2019-11-02 21:16] LABS: COVID19 Sendout Not Detected (Not Detect)
== END ==
PROVIDERS: PCP Family Medicine; Visit Provider Registered Nurse
DX: Z01.818 Encounter for other preprocedural examination (principal)
CPT/HCPCS: 87635

== ENCOUNTER 2019-11-05 12:05 | Day surgery (SDC) | payer MEDICARE, OTHER, SELFPAY ==
[2019-11-02 10:30] VITALS: BMI 26.0
[2019-11-05 12:36] VITALS: BP 218/116; PULSE 81; RESP 15; TEMP 36.8; O2SAT 100; BMI 26.0
--- NOTE | 2019-11-05 12:49 | PM.PREOP ---
Pre-operative Note COVID-19 COVID-19 status: Negative Result date/Date tested (Pos, Neg/Pending): 11/02/19 Interval Note History & Physical reviewed/Exam performed by Physician: Yes Changes to H&P: No H&P completed within 30 days and has changed as indicated here:: hypertension in pre op area; will address with anesthesiologist
[2019-11-05] MEDS: LACTATED RINGERS 1,000 ML 100 ML IV (12:58)
--- NOTE | 2019-11-05 13:54 | SUR.PREOP ---
Per Dr. Vigil and Dr. Velazco surgical proceudre cancelled r/t blood pressure reading in pre op being to high. Per Dr. Velazco, pt pcp wants pt to go to the ER. This RN called and spoke with ER doctor on duty and report given. Pt transferred to ER by wheelchair by SAMSON Erickson. Transferred care of pt to ER at that time. IV left in place, per request of ER doctor. Pt asymptomatic at this time.
== END 2019-11-05 21:00 | disposition home or self-care (01) ==
LOC: OR 12:06
PROVIDERS: PCP Family Medicine; Referring Provider Surgery; Visit Provider Surgery
PROC: (CPT 37609; principal; 2019-11-05 12:30)
DX: M31.6 Other giant cell arteritis (principal)

== ENCOUNTER 2019-11-05 13:56 | Emergency (ER) | payer MEDICARE, OTHER, SELFPAY ==
[2019-11-05 14:02] VITALS: BP 198/98; PULSE 68; RESP 16; TEMP 36.9; O2SAT 97; BMI 26.2
[2019-11-05 14:29] LABS: Hematocrit 41.1 % (36-46); Hemoglobin 13.8 g/dL (12.0-16.0); Mean Corpuscular HGB Conc 33.6 % (30-36); Mean Corpuscular Hemoglobin 30.1 PG (26-34); Mean Corpuscular Volume 89.6 fL (80-100); Platelet Count 256 X10^3/uL (150-400); Red Blood Cell Count 4.59 X10^6/uL (4.0-5.2)
[2019-11-05 14:38] LABS: Neutrophils Absolute Manual 9880 /uL (3000-5900); RBC Morphology Normal Morphology; Total Cells Counted 100
[2019-11-05 14:40] LABS: BUN Creatinine Ratio 23.2 (6-22); Blood Urea Nitrogen 19 mg/dL (7-17); Calcium 9.4 mg/dL (8.4-10.2); Carbon Dioxide 29 mmol/L (22-32); Chloride 103 mmol/L (98-107); Estimated Glomerular Filt Rate > 60.0 mL/min (>60); Glucose 107 mg/dL (80-110); HEMOLYSIS < 15 (0-50); Potassium 4.2 mmol/L (3.4-5.1); Sodium 138 mmol/L (137-145)
[2019-11-05 14:41] VITALS: BP 201/98; PULSE 66
[2019-11-05] MEDS: LOSARTAN 50 MG TABLET 100 MG PO (14:41)
[2019-11-05 14:45] VITALS: BP 189/91; PULSE 65; RESP 14; O2SAT 98
[2019-11-05 14:51] LABS: Troponin I < 0.012 ng/mL (0.01-0.034)
[2019-11-05 15:30] VITALS: BP 196/90; PULSE 63; RESP 17; O2SAT 99
--- NOTE | 2019-11-05 16:02 | ED.GENADULT ---
HPI - General Adult <BENJAMIN Bauman-BC - Last Filed: 11/05/19 18:50> General Chief complaint: Hypertension Stated complaint: Hypertension Time Seen by Provider: 11/05/19 14:08 Source: patient Mode of arrival: Wheelchair Limitations: no limitations History of Present Illness HPI narrative: The patient is a 64-year-old female who presents from the preoperative area with a chief complaint of hypertension. She was in the hospital to have a temporal artery biopsy and was found to be hypertensive in the 220s/100s. This is found to be unsafe for surgeries the patient was transferred to the emergency department. She denies any headache she denies any chest pain or shortness of breath. She states that she feels fine and has no symptoms. She states that she took her metoprolol today, but did not take her losartan. Related Data Home Medications Medication Instructions Recorded Confirmed aspirin 81 mg PO DAILY 08/03/19 11/05/19 losartan [Cozaar] 100 mg PO DAILY 08/03/19 11/05/19 metoprolol succinate [Toprol XL] 100 mg PO DAILY 08/03/19 11/05/19 Previous Rx's Medication Instructions Recorded prednisone See Rx Instructions .ROUTE 10/16/19 .COMPLEX #75 tab carbamazepine 200 mg tablet See Rx Instructions PO BID #30 tab 10/19/19 carbamazepine 200 mg PO BID #14 tab 11/05/19 Allergies Allergy/AdvReac Type Severity Reaction Status Date / Time acetaminophen [ACETAMINOPHEN] Allergy Severe hives, Verified 11/05/19 12:32 puritis crab [CRAB] Allergy Severe hives, Verified 11/05/19 12:32 puritis morphine Allergy Severe Difficulty Verified 11/05/19 12:32 Breathing Penicillins [PENICILLINS] Allergy Severe hives, Verified 11/05/19 12:32 puritis Sulfa (Sulfonamide Allergy Severe hives, Verified 11/05/19 12:32 Antibiotics) puritis [SULFA (SULFONAMIDE ANTIBIOTICS)] cyclobenzaprine Allergy Hives Verified 11/05/19 12:32 [From Flexeril] Review of Systems <SHANNAN Bauman - Last Filed: 11/05/19 18:50> Review of Systems Narrative: GENERAL: Denies chills, fatigue, malaise, fever, sweats. HEENT: Denies sinus pain, ear pain, sore throat, difficulty swallowing, dizziness. RESPIRATORY: Denies dyspnea, cough, wheezing, hemoptysis, sputum. CARDIOVASCULAR: See HPI GASTROINTESTINAL: Denies nausea, vomiting, abdominal pain, diarrhea, constipation, melena. : Denies dysuria, frequency, incontinence, hematuria, urinary retention. MUSCULOSKELETAL: denies weakness, joint pain, or bony pain SKIN: Denies rash, skin lesions, or other NEUROLOGIC: Denies weakness, headache, numbness, change in speech, confusion, seizures, incoordination. PSYCHIATRIC: No concerning psychosocial issues. 12 point review of systems is negative except for those stated above Patient History <SHANNAN Bauman - Last Filed: 11/05/19 18:50> Medical History Arthritis (Acute) Bicipital tendinitis (Acute) Essential hypertension (Chronic 04/15/15) History of active tuberculosis (Acute) History of vaginal delivery (Resolved) Hyperlipidemia (Chronic) Hypertension (Chronic) Mixed hyperlipidemia (Chronic 07/22/15) Neuritis of right ulnar nerve (Acute) Pancreatic mass (Acute) Tuberculosis (Acute) Surgical History History of cataract extraction (Acute) Family History Father Stroke Mother Aneurysm Social History household members: spouse and family Smoking Status: Never smoker alcohol intake: current Smoking Status: Never smoker alcohol intake frequency: holidays/special occasions only Substance Use Type: does not use Exam <SHANNAN Bauman - Last Filed: 11/05/19 18:50> Narrative Exam Narrative: GENERAL: This is a well-nourished, well-developed patient, in no acute distress HEAD: Atraumatic. Normocephalic. No temporal or scalp tenderness. EYES: Pupils equal round and reactive. Extraocular motions intact. No scleral icterus. No injection or drainage. ENT: Nose without bleeding, purulent drainage or septal hematoma. Throat without erythema, tonsillar hypertrophy or exudate. Uvula midline. Airway patent. NECK: Trachea midline. No JVD or lymphadenopathy. Supple, nontender, no meningeal signs. CARDIOVASCULAR: Regular rate and rhythm RESPIRATORY: Clear to auscultation. Breath sounds equal bilaterally. No wheezes, rales, or rhonchi. No cough. No increased respiratory effort. No accessory muscle use. GASTROINTESTINAL: Abdomen soft, non-tender, nondistended. No hepato-splenomegaly, or palpable masses. No guarding. EXTREMITIES: No clubbing, cyanosis, or edema. No joint tenderness, effusion, or edema noted. BACK: Nontender without deformity or crepitance. No flank tenderness. NEURO: AOx3. SKIN: No rash or erythema on with on visible skin Initial Vital Signs Initial Vital Signs: Vital Signs Temperature 98.5 F 11/05/19 14:02 Pulse Rate 68 11/05/19 14:02 Respiratory Rate 16 11/05/19 14:02 Blood Pressure 198/98 H 11/05/19 14:02 Pulse Oximetry 97 11/05/19 14:02 <Shankar Hoff DO - Last Filed: 11/05/19 18:51> Initial Vital Signs Initial Vital Signs: Vital Signs Temperature 98.5 F 11/05/19 14:02 Pulse Rate 68 11/05/19 14:02 Respiratory Rate 16 11/05/19 14:02 Blood Pressure 198/98 H 11/05/19 14:02 Pulse Oximetry 97 11/05/19 14:02 Scores <SHANNAN Bauman - Last Filed: 11/05/19 18:50> GCS [place] coma scale eye opening: Spontaneous [place] coma scale verbal response: Orientated [place] coma scale motor response: Obey commands [place] coma scale total score: 15 Course <SHANNAN Bauman - Last Filed: 11/05/19 18:50> Orders Ordered: ED Orders 11/05/19 14:09 EKG-12 Lead Stat 11/05/19 14:21 Basic Metabolic Panel Stat Complete Blood Count MAN DIFF Stat Troponin I Stat Discontinued Medications Losartan Potassium (Cozaar) 100 mg PO NOW ONE Stop: 11/05/19 14:32 Last Admin: 11/05/19 14:41 Dose: 100 mg Documented by: BIN Vital Signs Vital signs: Vital Signs - 8 hr 11/05/19 14:02 11/05/19 14:41 11/05/19 14:45 Temperature 98.5 F Pulse Rate 68 66 65 Respiratory Rate 16 14 Blood Pressure 198/98 H 201/98 H Blood Pressure [Left Arm] 189/91 H Pulse Oximetry 97 98 11/05/19 15:30 11/05/19 16:29 Temperature Pulse Rate 63 69 Respiratory Rate 17 Blood Pressure Blood Pressure [Left Arm] 196/90 H 187/88 H Pulse Oximetry 99 <Shankar Hoff DO - Last Filed: 11/05/19 18:51> Orders Ordered: ED Orders 11/05/19 14:09 EKG-12 Lead Stat 11/05/19 14:21 Basic Metabolic Panel Stat Complete Blood Count MAN DIFF Stat Troponin I Stat Discontinued Medications Losartan Potassium (Cozaar) 100 mg PO NOW ONE Stop: 11/05/19 14:32 Last Admin: 11/05/19 14:41 Dose: 100 mg Documented by: BIN Vital Signs Vital signs: Vital Signs - 8 hr 11/05/19 14:02 11/05/19 14:41 11/05/19 14:45 Temperature 98.5 F Pulse Rate 68 66 65 Respiratory Rate 16 14 Blood Pressure 198/98 H 201/98 H Blood Pressure [Left Arm] 189/91 H Pulse Oximetry 97 98 11/05/19 15:30 11/05/19 16:29 Temperature Pulse Rate 63 69 Respiratory Rate 17 Blood Pressure Blood Pressure [Left Arm] 196/90 H 187/88 H Pulse Oximetry 99 Medical Decision Making <BENJAMIN Bauman-BC - Last Filed: 11/05/19 18:50> Lab Data Result diagrams: 11/05/19 14:21 11/05/19 14:21 Labs: Lab Results 11/05/19 11/05/19 Range/Units 14:21 14:21 WBC 13.0 H (4.5-11.0) X10^3/uL RBC 4.59 (4.0-5.2) X10^6/uL Hgb 13.8 (12.0-16.0) g/dL Hct 41.1 (36-46) % MCV 89.6 (80-100) fL MCH 30.1 (26-34) PG MCHC 33.6 (30-36) % RDW 14.0 (11.6-14.8) % Plt Count 256 (150-400) X10^3/uL Total Counted 100 Seg Neutrophils % 76.0 H (38-70) % Lymphocytes % (Manual) 11.0 L (25-45) % Atypical Lymphs % 8.0 H ( - 0) % Monocytes % (Manual) 5.0 (2-11) % Neutrophils # (Manual) 9880 H (4843-6901) /uL RBC Morphology Normal morphology Sodium 138 (137-145) mmol/L Potassium 4.2 (3.4-5.1) mmol/L Chloride 103 (98-107) mmol/L Carbon Dioxide 29 (22-32) mmol/L BUN 19 H (7-17) mg/dL Creatinine 0.82 (0.52-1.04) mg/dL Estimated GFR > 60.0 (>60) mL/min BUN/Creatinine Ratio 23.2 H (6-22) Glucose 107 (80-110) mg/dL Calcium 9.4 (8.4-10.2) mg/dL Troponin I < 0.012 (0.01-0.034) ng/mL ECG Data Attestation: I personally reviewed and interpreted this ECG as follows: Interpretation: Sinus rhythm. Ventricular rate 72. P.r. interval 157. QRS 87. Viewed by Dr. Hoff MDM Narrative Medical decision making narrative: The patient is a 64-year-old female who presents with a chief complaint of hypertension pre operative. She was initially 220/100s. She did not take her losartan this morning, so she was given a dose in the emergency department which decreased her blood pressure to the 180s over 80s. She is without chest pain shortness of breath, has no obvious cardiac abnormalities on her EKG, negative troponin, no edema or difficulty breathing. She denies any headache. I did give her a small refill of carbamazepine for her trigeminal neuralgia. I discussed at length the importance of taking her blood pressure medications, come back to emergency department for any acute concerns such as chest pain, concern of heart attack or stroke, as well as follow-up with primary care provider and surgery. Discussed plan of care with Dr Hoff. The patient and state understanding of return precautions as well as follow-up care and have no questions or concerns upon discharge. <Shankar Hoff, DO - Last Filed: 11/05/19 18:51> Lab Data Labs: Lab Results 11/05/19 11/05/19 Range/Units 14:21 14:21 WBC 13.0 H (4.5-11.0) X10^3/uL RBC 4.59 (4.0-5.2) X10^6/uL Hgb 13.8 (12.0-16.0) g/dL Hct 41.1 (36-46) % MCV 89.6 (80-100) fL MCH 30.1 (26-34) PG MCHC 33.6 (30-36) % RDW 14.0 (11.6-14.8) % Plt Count 256 (150-400) X10^3/uL Total Counted 100 Seg Neutrophils % 76.0 H (38-70) % Lymphocytes % (Manual) 11.0 L (25-45) % Atypical Lymphs % 8.0 H ( - 0) % Monocytes % (Manual) 5.0 (2-11) % Neutrophils # (Manual) 9880 H (1507-8184) /uL RBC Morphology Normal morphology Sodium 138 (137-145) mmol/L Potassium 4.2 (3.4-5.1) mmol/L Chloride 103 (98-107) mmol/L Carbon Dioxide 29 (22-32) mmol/L BUN 19 H (7-17) mg/dL Creatinine 0.82 (0.52-1.04) mg/dL Estimated GFR > 60.0 (>60) mL/min BUN/Creatinine Ratio 23.2 H (6-22) Glucose 107 (80-110) mg/dL Calcium 9.4 (8.4-10.2) mg/dL Troponin I < 0.012 (0.01-0.034) ng/mL Discharge Plan Departure Patient Disposition: Home Clinical Impression: Essential hypertension, Facial pain Discharge Date/Time: 11/05/19 16:48 Instructions: DI for High Blood Pressure Activity Restrictions/Additional Instructions: Thank you for trusting us with your care today Please continue to take your blood pressure medications. Please follow-up with primary care provider as well as your surgeon. I sent another week of carbamazepine to [facility] in [place]. Please continue to take 1 tab of 200 mg twice a day. Please come back to emergency department for any acute concerns such as chest pain, shortness of breath, concern of heart attack or stroke Prescriptions: New carbamazepine 200 mg tablet 200 mg PO BID Qty: 14 RF: 0 No Action carbamazepine 200 mg tablet See Rx Instructions PO BID Qty: 30 RF: 0 metoprolol succinate [Toprol XL] 100 mg tablet extended release 24 hr 100 mg PO DAILY RF: 0 losartan [Cozaar] 100 mg tablet 100 mg PO DAILY RF: 0 aspirin 81 mg Tablet,Delayed Release (Dr/Ec) 81 mg PO DAILY RF: 0 prednisone 10 mg tablet See Rx Instructions .ROUTE .COMPLEX Qty: 75 RF: 0 Referrals: Adrinaa Carrillo DO [Primary Care Provider] - <Shankar Hoff DO - Last Filed: 11/05/19 18:51> Cosign ED Attending Cosignature Attestation: Dr Hoff Co-Sign Statement: I was available for consultation during this patient's emergency department visit. This chart is signed by myself for administrative purposes only. I did not have direct contact with this patient during this visit. They were seen independently by the APC.
[2019-11-05 16:29] VITALS: BP 187/88; PULSE 69
== END 2019-11-05 16:48 | disposition home or self-care (01) ==
PROVIDERS: Emergency Medicine; Emergency Provider Nurse Practitioner Family; PCP Family Medicine
DX: I10 Essential (primary) hypertension (principal); R51 Headache
CPT/HCPCS: 36415; 80048; 84484; 85025; 93005; 99283

== ENCOUNTER → 2019-11-27 09:19 | Outpatient (CLI) | payer MEDICARE, OTHER, SELFPAY ==
--- NOTE | 2019-11-27 09:21 | DI.MRI.S_ITS ---
PROCEDURE: MR HEAD/BRAIN WO/W CON INDICATIONS: left sided paresthesias, evaluate trigeminal neuralgia TECHNIQUE: Noncontrast sagittal T1 spin echo, axial T2 fast spin echo, axial FLAIR, axial gradient echo, axial diffusion and ADC through the brain. Axial/sagittal/coronal 3-D CISS, thin-slice axial T1 spin echo with fat saturation through the skull base. After the administration of contrast, axial and coronal thin-slice T1 spin echo with fat saturation through the skull base, axial T1 spin echo with fat saturation through the brain. COMPARISON: [facility], CT, CT HEAD/BRAIN WO CON, 10/16/2019, 13:20. FINDINGS: Image quality: Excellent. Trigeminal nerves: The trigeminal nerves demonstrate a normal appearance, without masses or abnormal enhancement seen along the courses of the trigeminal nerves, including within the deep Meckel's caves. CSF spaces: Ventricles are normal in size and shape. No extra-axial fluid collections. Basal cisterns are patent. Brain: No intracranial bleeds or mass effects. No abnormal intracranial enhancement. Diffusion weighted images show no acute ischemic insults. Brain volume loss is seen. Chronic small vessel ischemic change is seen. Sneed-white matter interface is intact. Brainstem is normal. Normal intravascular flow voids are present. Skull and face: Calvarial marrow signal is normal. Orbits appear normal. Sinuses: Sinuses and mastoids appear clear. IMPRESSION: Unremarkable examination, without abnormalities seen of the trigeminal nerves. Dictated by: Ford Bui M.D. on 11/27/2019 at 9:58 Approved by: Ford Bui M.D. on 11/27/2019 at 9:59
== END ==
PROVIDERS: PCP Family Medicine; Referring Provider Family Medicine; Visit Provider Family Medicine
DX: G50.0 Trigeminal neuralgia (principal); R20.2 Paresthesia of skin
CPT/HCPCS: 70553; A9579

== ENCOUNTER → 2019-12-21 09:52 | Outpatient (CLI) | payer MEDICARE, OTHER, SELFPAY ==
[2019-12-21 10:11] LABS: Add Manual Diff / Slide Review NO; Basophils Absolute Auto 100 /uL (0-100); Basophils Percent Auto 0.9 % (0-2); Eosinophils Absolute Auto 400 /uL (0-450); Eosinophils Percent Auto 5.5 % (2-4); Hematocrit 40.7 % (36-46); Hemoglobin 13.9 g/dL (12.0-16.0); Lymphocytes Absolute Auto 2400 /uL (1100-4500); Lymphocytes Percent Auto 33.4 % (25-40); Mean Corpuscular HGB Conc 34.2 % (30-36); Mean Corpuscular Hemoglobin 30.1 PG (26-34); Mean Corpuscular Volume 88.1 fL (80-100); Monocytes Absolute Auto 900 /uL (0-900); Monocytes Percent Auto 12.1 % (3-14); Neutrophils Absolute Auto 3400 /uL (1500-7000); Neutrophils Percent Auto 48.1 % (50-75); Platelet Count 292 X10^3/uL (150-400); Red Blood Cell Count 4.62 X10^6/uL (4.0-5.2); Red Cell Distribution Width 13.6 % (11.6-14.8); White Blood Cell Count 7.1 X10^3/uL (4.5-11.0)
[2019-12-21 10:35] LABS: Erythrocyte Sedimentation Rate 21 MM/HR (0-20)
[2019-12-21 10:41] LABS: Alanine Aminotransferase 12 IU/L (<35); Albumin 4.3 g/dL (3.5-5.0); Albumin Globulin Ratio 1.2 (1.0-2.8); Alkaline Phosphatase 62 U/L (38-126); Aspartate Aminotransferase 31 IU/L (14-36); BUN Creatinine Ratio 27.1 (6-22); Bilirubin Total 0.4 mg/dL (0.2-1.3); Blood Urea Nitrogen 19 mg/dL (7-17); Carbon Dioxide 27 mmol/L (22-32); Chloride 104 mmol/L (98-107); Estimated Glomerular Filt Rate > 60.0 mL/min (>60); Globulin 3.6 g/dL (1.7-4.1); Glucose 125 mg/dL (80-110); HEMOLYSIS < 15 (0-50); Potassium 3.7 mmol/L (3.4-5.1); Sodium 139 mmol/L (137-145); Total Protein 7.9 g/dL (6.3-8.2)
[2019-12-21 10:42] LABS: C-Reactive Protein Quant < 0.5 mg/dL (<1.0)
== END ==
PROVIDERS: PCP Family Medicine; Referring Provider Family Medicine; Visit Provider Family Medicine
DX: G50.0 Trigeminal neuralgia (principal); I10 Essential (primary) hypertension
CPT/HCPCS: 36415; 80053; 85025; 85651; 86140

== ENCOUNTER → 2019-12-28 08:49 | Outpatient (CLI) | payer MEDICARE, OTHER, SELFPAY ==
[2019-12-29 09:43] LABS: COVID19 Sendout Not Detected (Not Detect)
== END ==
PROVIDERS: PCP Family Medicine; Visit Provider Student in an Organized Health Care Education/Training Program
DX: Z01.812 Encounter for preprocedural laboratory examination (principal)
CPT/HCPCS: 87635

== ENCOUNTER → 2020-03-11 09:47 | Outpatient (CLI) | payer MEDICARE, OTHER, SELFPAY ==
[2020-03-13 18:20] LABS: COVID19 Sendout Not Detected (Not Detect)
== END ==
PROVIDERS: PCP Family Medicine; Visit Provider Nurse Practitioner
DX: Z11.59 Encounter for screening for other viral diseases (principal)
CPT/HCPCS: 87635

== ENCOUNTER → 2021-05-01 12:21 | Outpatient (CLI) | payer MEDICARE, OTHER, SELFPAY ==
--- NOTE | 2021-05-01 12:48 | DI.RAD.S_ITS ---
PROCEDURE: XR HAND LT MIN 3V INDICATIONS: Joint pain, stiffness, swelling TECHNIQUE: 3 views of the hand(s) acquired. COMPARISON: None. FINDINGS: Bones: No fractures or dislocations. Joint space loss of the distal interphalangeal joints with periarticular osteophytosis, likely reflecting osteoarthrosis. Carpal bones are normally aligned. No suspicious bony lesions. Soft tissues: No suspicious soft tissue calcifications. IMPRESSION: No acute osseous abnormality. Dictated by: Scott Faulkner M.D. on 05/01/2021 at 14:06 Approved by: Scott Faulkner M.D. on 05/01/2021 at 14:09
--- NOTE | 2021-05-01 12:48 | DI.RAD.S_ITS ---
PROCEDURE: XR HAND RT MIN 3V INDICATIONS: joint pain, stiffness, swelling TECHNIQUE: 3 views of the hand(s) acquired. COMPARISON: None. FINDINGS: Bones: No fractures or dislocations. Carpal bones are normally aligned. No suspicious bony lesions. Severe 1st DIP joint osteoarthritis. Mild to moderate 2nd through 5th PIP and DIP osteoarthritis. No osseous erosive changes. Soft tissues: No suspicious soft tissue calcifications. IMPRESSION: Osteoarthritis as described above. Dictated by: Sobeida Loredo MD, PhD on 05/01/2021 at 15:37 Approved by: Sobeida Loredo MD, PhD on 05/01/2021 at 15:45
[2021-05-01 13:21] LABS: Hemoglobin A1C% w Est Avg Glu 6.1 % (4.0-6.0)
[2021-05-01 14:08] LABS: Alanine Aminotransferase 12 IU/L (<35); Albumin 4.4 g/dL (3.5-5.0); Albumin Globulin Ratio 1.1 (1.0-2.8); Alkaline Phosphatase 62 U/L (38-126); Aspartate Aminotransferase 29 IU/L (14-36); BUN Creatinine Ratio 17.1 (6-22); Bilirubin Total 0.5 mg/dL (0.2-1.3); Blood Urea Nitrogen 19 mg/dL (7-17); Calcium 9.5 mg/dL (8.4-10.2); Carbon Dioxide 26 mmol/L (22-32); Chloride 108 mmol/L (98-107); Cholesterol 228 mg/dL (140-199); Globulin 3.9 g/dL (1.7-4.1); Glucose 90 mg/dL (80-110); HDL Cholesterol 30 mg/dL (40-60); HEMOLYSIS < 15 (0-50); LDL Cholesterol Calculated 137 mg/dL (<100); Potassium 3.5 mmol/L (3.4-5.1); Sodium 146 mmol/L (137-145); Total Protein 8.3 g/dL (6.3-8.2); Triglycerides 304 mg/dL (35-150)
[2021-05-01 14:40] LABS: TSH w/ Reflex to FT4 1.35 uIU/mL (0.47-4.68)
[2021-05-01 14:57] LABS: Vitamin B12 434 pg/mL (239-931)
[2021-05-02 07:00] LABS: Homocysteine 11.3 umol/L (0.0-17.2)
[2021-05-03 22:09] LABS: Methylmalonic Acid,Serum 295 nmol/L (0-378)
== END ==
PROVIDERS: PCP Family Medicine; Referring Provider Family Medicine; Visit Provider Family Medicine
DX: I10 Essential (primary) hypertension (principal); M79.671 Pain in right foot; M79.672 Pain in left foot; E78.2 Mixed hyperlipidemia; G62.9 Polyneuropathy, unspecified
CPT/HCPCS: 36415; 73130; 80053; 80061; 82607; 83036; 83090; 83921; 84443

== ENCOUNTER → 2021-07-03 14:32 | Outpatient (CLI) | payer MEDICARE, OTHER, SELFPAY ==
[2021-07-03 16:35] LABS: BUN Creatinine Ratio 24.4 (6-22); Blood Urea Nitrogen 19 mg/dL (7-17); Calcium 9.5 mg/dL (8.4-10.2); Carbon Dioxide 27 mmol/L (22-32); Chloride 105 mmol/L (98-107); Estimated Glomerular Filt Rate > 60.0 mL/min (>60); Glucose 101 mg/dL (80-110); HEMOLYSIS < 15 (0-50); Potassium 3.9 mmol/L (3.4-5.1); Sodium 142 mmol/L (137-145)
[2021-07-03 16:41] LABS: Rheumatoid Factor < 8.6 IU/mL (<12.0)
[2021-07-03 16:49] LABS: Microalbumi Creatinin Ratio Ur 22.2 ug/mg CR (<30); Microalbumin Urine Random 1.4 mg/dL (0-1.6)
[2021-07-05 20:14] LABS: CCP Antibodies IgG/IgA 4 units (0-19)
== END ==
PROVIDERS: PCP Family Medicine; Referring Provider Family Medicine; Visit Provider Family Medicine
DX: N28.9 Disorder of kidney and ureter, unspecified (principal); I10 Essential (primary) hypertension; R89.9 Unspecified abnormal finding in specimens from other organs, systems and tissues; M15.4 Erosive (osteo)arthritis
CPT/HCPCS: 36415; 80048; 82043; 82570; 86200; 86430

== ENCOUNTER → 2022-02-05 10:09 | Outpatient (CLI) | payer MEDICARE, OTHER, SELFPAY ==
--- NOTE | 2022-02-05 | DI.CT.S_ITS ---
PROCEDURE: CT SINUS SCREEN WO CON INDICATIONS: Chronic pansinusitis TECHNIQUE: Noncontrast 3.0 mm axial images acquired from the frontal sinuses to the mid-sella, with coronal and sagittal reformats. For radiation dose reduction, the following was used: automated exposure control, adjustment of mA and/or kV according to patient size. COMPARISON: None. FINDINGS: Image quality: Excellent. Maxillary Sinuses: No bony remodeling or destruction. There is minimal mucosal thickening seen involving the inferior right maxillary sinus. Ethmoid Air Cells: No bony remodeling or destruction. Sinuses are clear. Sphenoid Sinuses: No bony remodeling or destruction. Sinuses are clear. Frontal Sinuses: No bony remodeling or destruction. Sinuses are clear. Ostiomeatal Complexes: Ostiomeatal complexes are patent, yet there are narrowed with bilateral Malcolm cells, right worse than left. Miscellaneous: Visualized intra-orbital contents are normal. No nhan bullosa or paradoxical turbinate curvature. No significant nasal septal deviation. Note is made of focal TMJ degenerative change, as seen on series 5 images 13 and 47. IMPRESSION: No significant active paranasal sinus disease is seen. Minimal mucosal thickening can be seen within the inferior right maxillary sinus. Narrowed ostiomeatal complexes, with bilateral Malcolm cells. Note made of focal TMJ degenerative change. - If clinically appropriate, a follow-up TMJ protocol MRI (with open mouth images and closed mouth) could be considered for further evaluation (assuming that there is no contraindication). Dictated by: Ford Bui M.D. on 02/05/2022 at 10:19 Approved by: Ford Bui M.D. on 02/05/2022 at 10:22
== END ==
PROVIDERS: PCP Nurse Practitioner; Referring Provider Otolaryngology; Visit Provider Otolaryngology
DX: J32.4 Chronic pansinusitis; G44.89 Other headache syndrome
CPT/HCPCS: 70486

== ENCOUNTER 2022-07-11 08:43 | Emergency (ER) | payer MEDICARE, OTHER, SELFPAY ==
[2022-07-11] VITALS (19 sets, daily range): BP systolic 156–207; BP diastolic 74–96; PULSE 91–109; RESP 15–19; TEMP 36.8; O2SAT 92–99; BMI 25.6
--- NOTE | 2022-07-11 11:13 | ED.SKABFB ---
HPI - Skin/Abscess/Foreign Bdy General Chief complaint: Skin/Abscess/Foreign Body Stated complaint: pain LT side of face T-5 Time Seen by Provider: 07/11/22 10:34 Source: patient Mode of arrival: Wheelchair Limitations: no limitations History of Present Illness HPI narrative: Patient here with daughter and family. Complains of left facial pain from her cheek up to her forehead. Not blow her cheek. Patient states same pain she had 2 years ago and worked up for giant cell arteritis/temporal arteritis. She never did get biopsy of the temporal arteries after meeting with general surgeon. Patient states onset 5 days ago. Blood pressure noted, she ran out of metoprolol 2 days ago. She did try taking carbamazepine 200 mg this morning without relief. This helped her pain 2 years ago for her flare-up. No facial droop. No slurred speech. No limb weakness. No rash. Differential diagnosis at that time was also trigeminal neuralgia. Denies any visual changes Related Data Previous Rx's Medication Instructions Recorded Disabled Parking Permit See Rx Instructions .Route 12/28/20 .COMPLEX #1 unit Disabled Parking Permit See Rx Instructions .Route 01/01/22 .COMPLEX #1 unit amlodipine 10 mg tablet 10 mg PO DAILY #90 tabs 01/01/22 aspirin 81 mg tablet,delayed 81 mg PO DAILY #90 tabs 01/01/22 release metoprolol succinate 50 mg 50 mg PO BID #30 tabs 07/11/22 tablet,extended release 24 hr carbamazepine 200 mg tablet 200 mg PO TID 90 days #270 tabs 07/23/22 losartan 100 mg tablet (Cozaar) 100 mg PO DAILY #90 tabs 07/23/22 Allergies Allergy/AdvReac Type Severity Reaction Status Date / Time acetaminophen [ACETAMINOPHEN] Allergy Severe hives, Verified 07/23/22 14:55 puritis crab [CRAB] Allergy Severe hives, Verified 07/23/22 14:55 puritis morphine Allergy Severe Difficulty Verified 07/23/22 14:55 Breathing Penicillins [PENICILLINS] Allergy Severe hives, Verified 07/23/22 14:55 puritis Sulfa (Sulfonamide Allergy Severe hives, Verified 07/23/22 14:55 Antibiotics) puritis [SULFA (SULFONAMIDE ANTIBIOTICS)] cyclobenzaprine Allergy Hives Verified 07/23/22 14:55 [From Flexeril] Review of Systems Review of Systems Narrative: GENERAL: negative chills, fatigue, malaise, fever, sweats. HEENT: negative sinus pain, ear pain, sore throat, positive facial pain RESPIRATORY: negative dyspnea, cough CARDIOVASCULAR: negative chest pain, palpitations GASTROINTESTINAL: negative nausea, vomiting, abdominal pain : negative dysuria, frequency, hematuria MUSCULOSKELETAL: negative muscle or bony pain SKIN: negative rash, skin lesions NEUROLOGIC: negative weakness, numbness ROS Unobtainable: All systems reviewed & are unremarkable except as noted in HPI and below Patient History Medical History Acute maxillary sinusitis Arthritis Bicipital tendinitis Daytime sleepiness Edentulous Essential hypertension (04/15/15) History of active tuberculosis History of vaginal delivery Hx of antibiotic allergy Hyperlipidemia Hypertension Insomnia Mixed hyperlipidemia (07/22/15) Neuritis of right ulnar nerve Obstructive sleep apnea (~01/01/20) Pancreatic mass Tuberculosis Surgical History History of cataract extraction History of tonsillectomy Family History Father Stroke Loud snoring Mother Aneurysm Family/Other Loud snoring Obesity Hypertension Heart disease Social History household members: spouse and family Smoking Status: Never smoker alcohol intake: current Smoking Status: Never smoker alcohol intake frequency: holidays/special occasions only Substance Use Type: does not use Exam Narrative Exam Narrative: GENERAL: in no distress, not toxic not dyspneic HEAD: Normocephalic. Mild discomfort with the left temporal skin area, no palpable vessel EYES: Pupils equal round PERRLA ENT: Mucous membranes moist. Tenderness to the left cheek and forehead. No rash no vesicles. Pain with opening her mouth. NECK: Trachea midline. CARDIOVASCULAR: Regular rate and rhythm without murmurs RESPIRATORY: Clear to auscultation. Breath sounds equal bilaterally. No wheezes, rales, or rhonchi. GASTROINTESTINAL: Abdomen soft, non-tender EXTREMITIES: No gross deformities. BACK: No flank tenderness. NEURO: AOx4. SKIN: Warm and dry PSYCH: Not anxious, is cooperative Initial Vital Signs Initial Vital Signs: Vital Signs Temperature 98.2 F 07/11/22 08:53 Pulse Rate 109 H 07/11/22 08:53 Respiratory Rate 16 07/11/22 08:53 Blood Pressure 202/91 H 07/11/22 08:53 Pulse Oximetry 97 07/11/22 08:53 Oxygen Delivery Method 07/11/22 08:53 Course Orders Ordered: Discontinued Medications Carbamazepine (Carbamazepine 200 Mg Tablet) 200 mg PO NOW ONE Stop: 07/11/22 11:12 Last Admin: 07/11/22 11:22 Dose: 200 mg Documented By: SYED Metoprolol Succinate (Metoprolol Er 25 Mg Tablet) 25 mg PO NOW ONE Stop: 07/11/22 11:14 Last Admin: 07/11/22 11:19 Dose: 25 mg Documented By: SYED Prednisone (Prednisone 20 Mg Tablet) 40 mg PO NOW ONE Stop: 07/11/22 13:41 Last Admin: 07/11/22 14:13 Dose: 40 mg Documented By: LISSA Vital Signs Vital signs: Vital Signs - 8 hr 07/11/22 08:53 07/11/22 10:04 07/11/22 11:19 Temperature 98.2 F Pulse Rate 109 H 108 H Respiratory Rate 16 Blood Pressure 202/91 H 201/96 H 183/91 H Pulse Oximetry 97 Oxygen Delivery Method Room Air 07/11/22 10:30 07/11/22 11:00 07/11/22 11:14 Temperature Pulse Rate 94 H Respiratory Rate Blood Pressure 207/96 H 183/91 H Pulse Oximetry 92 Oxygen Delivery Method 07/11/22 11:25 07/11/22 11:30 07/11/22 11:30 Temperature Pulse Rate 99 H Respiratory Rate Blood Pressure 185/87 H 156/77 H Pulse Oximetry 95 Oxygen Delivery Method 07/11/22 12:23 07/11/22 12:00 07/11/22 12:00 Temperature Pulse Rate 94 H 101 H Respiratory Rate Blood Pressure 161/77 H 161/77 H Pulse Oximetry 96 Oxygen Delivery Method 07/11/22 12:30 07/11/22 12:30 07/11/22 13:00 Temperature Pulse Rate 106 H Respiratory Rate Blood Pressure 170/89 H 161/81 H Pulse Oximetry 98 Oxygen Delivery Method 07/11/22 13:00 07/11/22 13:30 07/11/22 13:30 Temperature Pulse Rate 97 H 93 H Respiratory Rate Blood Pressure 168/82 H Pulse Oximetry 95 95 Oxygen Delivery Method 07/11/22 14:00 07/11/22 14:00 07/11/22 14:20 Temperature Pulse Rate 94 H Respiratory Rate Blood Pressure 156/74 H 169/87 H Pulse Oximetry 96 Oxygen Delivery Method 07/11/22 14:20 07/11/22 14:30 07/11/22 14:30 Temperature Pulse Rate 91 H 95 H Respiratory Rate 15 Blood Pressure 184/91 H Pulse Oximetry 96 96 Oxygen Delivery Method MDM - Skin/Abscess/Foreign Bdy Lab Data 07/11/22 11:29 07/11/22 11:29 Labs: Lab Results 07/11/22 07/11/22 Range/Units 11:29 11:29 WBC 12.7 H (4.5-11.0) X10^3/uL RBC 4.99 (4.0-5.2) X10^6/uL Hgb 14.7 (12.0-16.0) g/dL Hct 43.7 (36-46) % MCV 87.6 (80-100) fL MCH 29.5 (26-34) PG MCHC 33.7 (30-36) % RDW 13.0 (11.6-14.8) % Plt Count 248 (150-400) X10^3/uL Neut % (Auto) 71.7 (50-75) % Lymph % (Auto) 14.3 L (25-40) % Childress % (Auto) 11.2 (3-14) % Eos % (Auto) 1.6 L (2-4) % Baso % (Auto) 1.2 (0-2) % Neut # (Auto) 9100 H (9842-7864) /uL Lymph # (Auto) 1800 (6695-5017) /uL Childress # (Auto) 1400 H (0-900) /uL Eos # (Auto) 200 (0-450) /uL Baso # (Auto) 100 (0-100) /uL ESR 19 (0-20) MM/HR Sodium 137 (137-145) mmol/L Potassium 4.4 (3.4-5.1) mmol/L Chloride 98 (98-107) mmol/L Carbon Dioxide 29 (22-32) mmol/L BUN 13 (7-17) mg/dL Creatinine 0.64 (0.52-1.04) mg/dL Estimated GFR > 60 (>60) mL/min BUN/Creatinine Ratio 20.3 (6-22) Glucose 102 (80-110) mg/dL Calcium 9.3 (8.4-10.2) mg/dL Total Bilirubin 0.8 (0.2-1.3) mg/dL AST 34 (14-36) IU/L ALT 15 (<35) IU/L Alkaline Phosphatase 92 (38-126) U/L C-Reactive Protein 3.1 H (<1.0) mg/dL Total Protein 8.8 H (6.3-8.2) g/dL Albumin 4.4 (3.5-5.0) g/dL Globulin 4.4 H (1.7-4.1) g/dL Albumin/Globulin Ratio 1.0 (1.0-2.8) MDM Narrative Medical decision making narrative: Patient here with daughter and family. Complains of left facial pain from her cheek up to her forehead. Not blow her cheek. Patient states same pain she had 2 years ago and worked up for giant cell arteritis/temporal arteritis. She never did get biopsy of the temporal arteries after meeting with general surgeon. Patient states onset 5 days ago. Blood pressure noted, she ran out of metoprolol 2 days ago. She did try taking carbamazepine 200 mg this morning without relief. This helped her pain 2 years ago for her flare-up. No facial droop. No slurred speech. No limb weakness. No rash. Differential diagnosis at that time was also trigeminal neuralgia. Denies any visual changes After exam and history, CBC CMP ESR CRP have been ordered. Carbamazepine as well as metoprolol has been ordered. Blood pressure noted. MDM CC: Left facial pain Complicating co-morbidities: Possible history of temporal arteritis/trigeminal neuralgia Data collected from: Patient and daughter Medical records reviewed: ER visit and surgery office visit in 2020 for temporal arteritis evaluation and for biopsy. Differential considered: Includes but not limited to temporal arteritis/giant cell arteritis/trigeminal neuralgia/hypertension/shingles Exam documented above, pertinent findings include: Tenderness to left temporal region Lab Test results independently reviewed as above. Pertinent findings: Imaging studies independently reviewed: Consultations: 1:00 p.m., spoke with General surgery, Dr. Salter, patient can be discharged home and follow up in the office for outpatient temporal artery biopsy. Patient can be placed on prednisone. Treatments: Metoprolol/carbamazepine/prednisone Re-evaluations: 1:46 p.m. Blood pressure 168/82. Has improved. Patient sleeping. Family still at bedside, daughter. Patient doing much better. However still has some pain in the left face. Prednisone has been ordered. 3:49 p.m.. Patient feeling much better blood pressure 160/84. Left facial pain has improved at their prednisone and carbamazepine. Blood pressure has improved as well. Patient desires discharge home. Sign. Return precautions reviewed with them. They desire discharge home. Discussion: Appropriate for discharge home. Exam and laboratory studies are otherwise reassuring. I did review with General surgery for follow-up biopsy for temporal artery and GCA workup. Patient and daughter agree with treatment plan. Symptoms have improved significantly. Return precautions reviewed with them. They desire discharge home. Diagnosis: Left facial pain Discharge Plan Departure Patient Disposition: Home Clinical Impression: Left facial pain Activity Restrictions/Additional Instructions: No driving or operating machinery today or when taking new prescribed medication from today. Please call provided general surgery office tomorrow to schedule appointment for evaluation for possible biopsy procedure. Return if worse if any questions or concerns. Please continue steroid pack tomorrow. Please continue carbamazepine pill tomorrow. Be sure to see your family doctor for re-evaluation and blood pressure re-evaluation. Refill for metoprolol has been provided for you. Prescriptions: New metoprolol succinate 50 mg tablet extended release 24 hr 50 mg PO BID Qty: 30 0RF No Action amlodipine 10 mg tablet 10 mg PO DAILY Qty: 90 3RF aspirin 81 mg tablet,delayed release (DR/EC) 81 mg PO DAILY Qty: 90 3RF Hold Instructions: on toradol Disabled Parking Permit See Rx Instructions .ROUTE .COMPLEX Qty: 1 0RF Rx Instructions: I find this patient to be medically disabled and qualify for disabled parking as indicated and signed on the accompanying disabled parking application for individuals. Disabled Parking Permit See Rx Instructions .ROUTE .COMPLEX Qty: 1 0RF Rx Instructions: I find this patient to be medically disabled and qualify for disabled parking as indicated and signed on the accompanying disabled parking application for individuals. carbamazepine 200 mg tablet 200 mg PO TID 90 Days Qty: 270 3RF Rx Instructions: Take 1 tab by mouth for trigeminal neuralgia losartan [Cozaar] 100 mg tablet 100 mg PO DAILY Qty: 90 3RF Hold Instructions: increased creatinine Referrals: Nata Jimenez ARNP [Primary Care Provider] - Kiran Salter MD [Physician] - Stand Alone Forms: Patient Portal/API, Work Release Note
[2022-07-11] MEDS: METOPROLOL ER 25 MG TABLET PO (11:19)
[2022-07-11] MEDS: carBAMazepine 200 MG TABLET PO (11:22)
[2022-07-11 11:34] LABS: Add Manual Diff / Slide Review NO; Basophils Absolute Auto 100 /uL (0-100); Basophils Percent Auto 1.2 % (0-2); Eosinophils Absolute Auto 200 /uL (0-450); Eosinophils Percent Auto 1.6 % (2-4); Hematocrit 43.7 % (36-46); Hemoglobin 14.7 g/dL (12.0-16.0); Lymphocytes Absolute Auto 1800 /uL (1100-4500); Lymphocytes Percent Auto 14.3 % (25-40); Mean Corpuscular HGB Conc 33.7 % (30-36); Mean Corpuscular Hemoglobin 29.5 PG (26-34); Mean Corpuscular Volume 87.6 fL (80-100); Monocytes Absolute Auto 1400 /uL (0-900); Monocytes Percent Auto 11.2 % (3-14); Neutrophils Absolute Auto 9100 /uL (1500-7000); Neutrophils Percent Auto 71.7 % (50-75); Platelet Count 248 X10^3/uL (150-400); Red Blood Cell Count 4.99 X10^6/uL (4.0-5.2); White Blood Cell Count 12.7 X10^3/uL (4.5-11.0)
[2022-07-11 11:42] LABS: Chloride 98 mmol/L (98-107); Potassium 4.4 mmol/L (3.4-5.1); Sodium 137 mmol/L (137-145)
[2022-07-11 11:56] LABS: Alanine Aminotransferase 15 IU/L (<35); Albumin 4.4 g/dL (3.5-5.0); Alkaline Phosphatase 92 U/L (38-126); Aspartate Aminotransferase 34 IU/L (14-36); BUN Creatinine Ratio 20.3 (6-22); Bilirubin Total 0.8 mg/dL (0.2-1.3); Blood Urea Nitrogen 13 mg/dL (7-17); C-Reactive Protein Quant 3.1 mg/dL (<1.0); Calcium 9.3 mg/dL (8.4-10.2); Carbon Dioxide 29 mmol/L (22-32); Estimated Glomerular Filt Rate > 60 mL/min (>60); Globulin 4.4 g/dL (1.7-4.1); Glucose 102 mg/dL (80-110); HEMOLYSIS 100 (0-50); Total Protein 8.8 g/dL (6.3-8.2)
[2022-07-11 11:59] LABS: Erythrocyte Sedimentation Rate 19 MM/HR (0-20)
[2022-07-11] MEDS: predniSONE 20 MG TABLET 40 MG PO (14:13)
== END 2022-07-11 16:02 | disposition home or self-care (01) ==
PROVIDERS: Emergency Provider Emergency Medicine; PCP Nurse Practitioner
DX: R51.9 Headache, unspecified (principal); I10 Essential (primary) hypertension
CPT/HCPCS: 80053; 85025; 85651; 86140; 99283

== ENCOUNTER → 2022-07-23 16:17 | Outpatient (CLI) | payer MEDICARE, OTHER, SELFPAY ==
[2022-07-23 17:27] LABS: Add Manual Diff / Slide Review NO; Basophils Absolute Auto 100 /uL (0-100); Basophils Percent Auto 1.1 % (0-2); Eosinophils Absolute Auto 400 /uL (0-450); Hematocrit 40.5 % (36-46); Hemoglobin 13.8 g/dL (12.0-16.0); Lymphocytes Absolute Auto 2700 /uL (1100-4500); Lymphocytes Percent Auto 30.1 % (25-40); Mean Corpuscular HGB Conc 34.2 % (30-36); Mean Corpuscular Hemoglobin 30.2 PG (26-34); Mean Corpuscular Volume 88.4 fL (80-100); Monocytes Absolute Auto 900 /uL (0-900); Monocytes Percent Auto 9.7 % (3-14); Neutrophils Absolute Auto 5000 /uL (1500-7000); Neutrophils Percent Auto 55.1 % (50-75); Platelet Count 440 X10^3/uL (150-400); Red Blood Cell Count 4.58 X10^6/uL (4.0-5.2); Red Cell Distribution Width 12.6 % (11.6-14.8)
[2022-07-23 17:42] LABS: Alanine Aminotransferase 24 IU/L (<35); Albumin 4.1 g/dL (3.5-5.0); Albumin Globulin Ratio 0.9 (1.0-2.8); Alkaline Phosphatase 115 U/L (38-126); Aspartate Aminotransferase 41 IU/L (14-36); BUN Creatinine Ratio 23.5 (6-22); Bilirubin Total 0.3 mg/dL (0.2-1.3); Blood Urea Nitrogen 16 mg/dL (7-17); Calcium 9.1 mg/dL (8.4-10.2); Carbon Dioxide 32 mmol/L (22-32); Chloride 98 mmol/L (98-107); Cholesterol 189 mg/dL (140-199); Estimated Glomerular Filt Rate > 60 mL/min (>60); Globulin 4.4 g/dL (1.7-4.1); Glucose 105 mg/dL (80-110); HDL Cholesterol 21 mg/dL (40-60); HEMOLYSIS 27 (0-50); LDL Cholesterol Calculated 118 mg/dL (<100); Potassium 4.1 mmol/L (3.4-5.1); Sodium 138 mmol/L (137-145); Total Protein 8.5 g/dL (6.3-8.2); Triglycerides 249 mg/dL (35-150)
[2022-07-23 17:42] LABS: Creatinine Urine Random 27.8 mg/dL
[2022-07-23 17:48] LABS: Microalbumi Creatinin Ratio Ur 327.3 ug/mg CR (<30); Microalbumin Urine Random 9.1 mg/dL (0-1.6)
[2022-07-23 18:04] LABS: Free T3, Triiodothyronine Free 4.82 pg/mL (2.77-5.27); Free T4, Direct Thyroxine 1.34 ng/dL (0.78-2.19)
[2022-07-23 18:18] LABS: Thyroid Stimulating Hormone 2.28 uIU/mL (0.47-4.68)
== END ==
PROVIDERS: PCP Nurse Practitioner; Referring Provider Nurse Practitioner; Visit Provider Nurse Practitioner
DX: E78.2 Mixed hyperlipidemia (principal); G50.0 Trigeminal neuralgia; I10 Essential (primary) hypertension; N18.31 Chronic kidney disease, stage 3a; Z79.899 Other long term (current) drug therapy
CPT/HCPCS: 36415; 80053; 80061; 82043; 82570; 84439; 84443; 84481; 85025

== ENCOUNTER 2022-08-08 10:02 | Emergency (ER) | payer MEDICARE, OTHER, SELFPAY ==
[2022-08-08 10:03] VITALS: BP 165/78; PULSE 101; RESP 15; TEMP 36.3; O2SAT 93; BMI 24.4
--- NOTE | 2022-08-08 10:15 | ED.NAVMDI ---
HPI - Nausea/Vomiting/Diarrhea General Chief complaint: Nausea/Vomiting/Diarrhea Stated complaint: Vomiting, dizziness, pain Time Seen by Provider: 08/08/22 10:09 Source: patient Mode of arrival: Wheelchair History of Present Illness HPI Narrative: 66-year-old female nonsmoker with history of chronic kidney disease and ongoing left-sided facial pain with referral to Neurology presents with family in the chief complaint of nausea and vomiting this morning. She states that she went to bed in her normal state of health and woke up this morning and a breakfast, she states it tasted a little bit funny and soon thereafter she had a few episodes of vomiting. She states that she felt the urge to defecate but did not move her bowels. She denies any constipation or diarrhea. She has had no runny nose, sore throat or fever. Daughter states that they think she had pneumonia sometime recently but she was never actually seen and evaluated. That being said, she does not have any chest pain, shortness of breath. She denies abdominal pain, dysuria, frequency or urgency. She denies any new medications Related Data Previous Rx's Medication Instructions Recorded Disabled Parking Permit See Rx Instructions .Route 12/28/20 .COMPLEX #1 unit Disabled Parking Permit See Rx Instructions .Route 01/01/22 .COMPLEX #1 unit amlodipine 10 mg tablet 10 mg PO DAILY #90 tabs 01/01/22 aspirin 81 mg tablet,delayed 81 mg PO DAILY #90 tabs 01/01/22 release metoprolol succinate 50 mg 50 mg PO BID #30 tabs 07/11/22 tablet,extended release 24 hr carbamazepine 200 mg tablet 200 mg PO TID 90 days #270 tabs 07/23/22 losartan 100 mg tablet (Cozaar) 100 mg PO DAILY #90 tabs 07/23/22 Allergies Allergy/AdvReac Type Severity Reaction Status Date / Time acetaminophen [ACETAMINOPHEN] Allergy Severe hives, Verified 08/08/22 10:09 puritis crab [CRAB] Allergy Severe hives, Verified 08/08/22 10:09 puritis morphine Allergy Severe Difficulty Verified 08/08/22 10:09 Breathing Penicillins [PENICILLINS] Allergy Severe hives, Verified 08/08/22 10:09 puritis Sulfa (Sulfonamide Allergy Severe hives, Verified 08/08/22 10:09 Antibiotics) puritis [SULFA (SULFONAMIDE ANTIBIOTICS)] cyclobenzaprine Allergy Hives Verified 08/08/22 10:09 [From Flexeril] Review of Systems Review of Systems Narrative: GENERAL: See HPI HEENT: Denies sinus pain, ear pain, sore throat, difficulty swallowing, dizziness. RESPIRATORY: Denies dyspnea, cough, wheezing, hemoptysis, sputum. CARDIOVASCULAR: Denies chest pain, palpitations, orthopnea, edema, GASTROINTESTINAL: See HPI : Denies dysuria, frequency, incontinence, hematuria, urinary retention. MUSCULOSKELETAL: denies weakness, joint pain, or bony pain SKIN: Denies rash, skin lesions, or other NEUROLOGIC: Denies weakness, headache, numbness, change in speech, confusion, seizures, incoordination. PSYCHIATRIC: No concerning psychosocial issues. 12 point review of systems is negative except for those stated above Patient History Medical History Acute maxillary sinusitis Arthritis Bicipital tendinitis Daytime sleepiness Edentulous Essential hypertension (04/15/15) History of active tuberculosis History of vaginal delivery Hx of antibiotic allergy Hyperlipidemia Hypertension Insomnia Mixed hyperlipidemia (07/22/15) Neuritis of right ulnar nerve Obstructive sleep apnea (~01/01/20) Pancreatic mass Tuberculosis Surgical History History of cataract extraction History of tonsillectomy Family History Father Stroke Loud snoring Mother Aneurysm Family/Other Loud snoring Obesity Hypertension Heart disease Social History household members: spouse and family Smoking Status: Never smoker alcohol intake: current Smoking Status: Never smoker alcohol intake frequency: holidays/special occasions only Substance Use Type: does not use Exam Narrative Exam Narrative: GENERAL: [66] year old patient appears stated age. Well-developed patient, in mild distress. HEAD: Atraumatic. Normocephalic. EYES: Pupils equal round and reactive. Extraocular motions intact. No scleral icterus. No injection or drainage. ENT: Nose without bleeding, purulent drainage. Throat without erythema, tonsillar hypertrophy or exudate. Airway patent. NECK: Trachea midline. Non tender CARDIOVASCULAR: Regular rate and rhythm without murmurs, gallops, or rubs. RESPIRATORY: Clear to auscultation. Breath sounds equal bilaterally. No wheezes, rales, or rhonchi. GASTROINTESTINAL: Abdomen soft, non-tender, nondistended. EXTREMITIES: No edema or joint tenderness. BACK: Nontender without deformity or crepitance. No flank tenderness. NEURO: AOx3. SKIN: No rash or erythema of visible areas Initial Vital Signs Initial Vital Signs: Vital Signs Temperature 97.4 F L 08/08/22 10:03 Pulse Rate 101 H 08/08/22 10:03 Respiratory Rate 15 08/08/22 10:03 Blood Pressure 165/78 H 08/08/22 10:03 Pulse Oximetry 93 08/08/22 10:03 Oxygen Delivery Method 08/08/22 10:03 Course Orders Ordered: ED Orders 08/08/22 10:15 Complete Blood Count AUTO DIFF Stat Comprehensive Metabolic Panel Stat Lipase Stat Troponin & CK Cardiac Panel Stat 08/08/22 10:16 XR acute abdomen series Stat 08/08/22 10:36 Covid-19 + FLU A/B + RSV - PCR Stat Discontinued Medications Sodium Chloride (Normal Saline 0.9%) 1,000 mls @ 1,000 mls/hr IV BOLUS ONE Stop: 08/08/22 11:15 Last Infusion: 08/08/22 12:21 Dose: 0 mls/hr Documented By: Admin: 08/08/22 11:27 Dose: 1,000 mls/hr Documented By: SYED Ondansetron HCl (Ondansetron 4 Mg/2 Ml Inj) 4 mg IV NOW ONE Stop: 08/08/22 10:17 Last Admin: 08/08/22 11:26 Dose: 4 mg Documented By: SYED Pantoprazole Sodium (Pantoprazole 40 Mg Vial) 40 mg IV NOW ONE Stop: 08/08/22 10:17 Last Admin: 08/08/22 11:26 Dose: 40 mg Documented By: SYED Vital Signs Vital signs: Vital Signs - 8 hr 08/08/22 10:03 08/08/22 11:37 08/08/22 12:00 Temperature 97.4 F L Pulse Rate 101 H 87 Respiratory Rate 15 16 Blood Pressure 165/78 H 164/88 H Pulse Oximetry 93 96 Oxygen Delivery Method Room Air 08/08/22 12:00 Temperature Pulse Rate 87 Respiratory Rate 16 Blood Pressure Pulse Oximetry 96 Oxygen Delivery Method [facility] - Nausea/Vomiting/Diarrhea Lab Data 08/08/22 10:15 08/08/22 10:15 Labs: Lab Results 08/08/22 08/08/22 08/08/22 Range/Units 10:15 10:15 10:36 WBC 5.8 (4.5-11.0) X10^3/uL RBC 4.90 (4.0-5.2) X10^6/uL Hgb 14.3 (12.0-16.0) g/dL Hct 43.1 (36-46) % MCV 87.9 (80-100) fL MCH 29.1 (26-34) PG MCHC 33.2 (30-36) % RDW 12.7 (11.6-14.8) % Plt Count 273 (150-400) X10^3/uL Neut % (Auto) 65.7 (50-75) % Lymph % (Auto) 19.7 L (25-40) % [place] % (Auto) 13.2 (3-14) % Eos % (Auto) 1.0 L (2-4) % Baso % (Auto) 0.4 (0-2) % Neut # (Auto) 3800 (5487-5602) /uL Lymph # (Auto) 1100 (6370-0050) /uL [place] # (Auto) 800 (0-900) /uL Eos # (Auto) 100 (0-450) /uL Baso # (Auto) 0 (0-100) /uL Sodium 137 (137-145) mmol/L Potassium 3.5 (3.4-5.1) mmol/L Chloride 96 L (98-107) mmol/L Carbon Dioxide 31 (22-32) mmol/L BUN 23 H (7-17) mg/dL Creatinine 1.00 (0.52-1.04) mg/dL Estimated GFR > 60 (>60) mL/min BUN/Creatinine Ratio 23.0 H (6-22) Glucose 128 H (80-110) mg/dL Calcium 9.4 (8.4-10.2) mg/dL Total Bilirubin 0.6 (0.2-1.3) mg/dL AST 70 H (14-36) IU/L ALT 28 (<35) IU/L Alkaline Phosphatase 97 (38-126) U/L Total Creatine Kinase 119 (30-135) U/L CK-MB (CK-2) 1.55 (<2.37) ng/mL CK-MB (CK-2) Rel Index 1.3 L (1.5-5.0) % Troponin I 0.014 (0.01-0.034) ng/mL Total Protein 8.6 H (6.3-8.2) g/dL Albumin 4.4 (3.5-5.0) g/dL Globulin 4.2 H (1.7-4.1) g/dL Albumin/Globulin Ratio 1.0 (1.0-2.8) Lipase 100 (23-300) U/L SARS-CoV-2 (PCR) Positive H (Negative) Influenza A (RT-PCR) Flu a negative (NEGATIVE) Influenza B (RT-PCR) Flu b negative (NEGATIVE) RSV (PCR) Negative (Negative) Point of Care Testing Glucose POC 128 Imaging Data Chest x-ray: Radiologist's Impression: Launch?[place] [address] XRay Report Signed Patient: Josiah Fabian MR#: [id number] : 1955 Acct:[id number] Age/Sex: 66 / F Date of Service: 08/08/22 Loc: ED Accession Number: [id number] ?? Procedure: XR acute abdomen series Ordering Provider: Alex Garcia D.O. PROCEDURE:? XR ACUTE ABDOMEN SERIES ? INDICATIONS:? cough, N/V/D ? TECHNIQUE:? One view chest and two views of the abdomen were acquired.? ? COMPARISON:? None. ? FINDINGS:? ? Surgical changes and devices:? None.? ? Chest:? Ill-defined opacity in right upper lung field is seen.? Left lung is clear.? Heart size is normal.? No pleural effusions.? No pneumoperitoneum.? ? Abdomen:? Bowel gas pattern is nonobstructive.? Mild fecal stasis in the colon is seen.? No gross free air.? No suspicious calcifications.? Visualized solid organ contours appear normal.? ? Bones:? No suspicious bony lesions.? ? IMPRESSION:? 1. Finding may represent right upper lobe atelectasis versus small infiltrate.? No pleural effusion or pneumothorax. 2. No bowel obstruction or pneumoperitoneum.? Mild constipation.? ? ? Dictated by: Hu Oakley M.D. on 08/08/2022 at 10:39 ? ? Approved by: Hu Oakley M.D. on 08/08/2022 at 10:41 ? MDM Narrative Medical decision making narrative: CC: 66-year-old female with a few episodes of nausea and vomiting this morning Complicating co-morbidities: Age, chronic kidney disease, hypertension, hyperlipidemia Data collected from: Patient Medical records reviewed: Prior visits reviewed Differential considered, but not limited to: Flu, COVID, pneumonia, bowel obstruction, gastroenteritis, electrolyte abnormality versus other Exam documented above, pertinent findings include: Lungs clear, no increased work of breathing, heart rate regular, minimally tachycardic, abdomen soft, bowel sounds present Lab Test results independently reviewed as above. Pertinent findings: Independently reviewed EKG as above Imaging studies independently reviewed: Possible right upper lobe infiltrate vs atelectasis Discussion: Patient with 7 days upper respiratory complaints associated with nausea and vomiting. She is found to have COVID and not a candidate for hospitalization as she has no respiratory distress or hypoxemia. Labs are very reassuring otherwise. Urine shows no sign infection. She is given fluids and feeling better, tolerating orals. Not a candidate for Paxlovid given duration of symptoms Disposition: see below, along with detailed discharge instructions that have been reviewed with patient as well as indications for ED re-evaluation and additional outpatient follow up Discharge Plan Departure Patient Disposition: Home Clinical Impression: COVID-19 Instructions: COVID-19 Activity Restrictions/Additional Instructions: *You have been diagnosed with [ COVID-19] *What to do: ?* per recommendations from the CDC and the [facility] Department of Health ?* stay home except to get medical care. ?Restrict activities outside your home, except for getting medical care. ?Do not go to work, school, or public areas. ?Avoid using public transportation, ride sharing, or taxis. ?* separate yourself from other people in your home. ?* call ahead before visiting your doctor ?* Wear a facemask ?* Cover your coughs and sneezes ?* Clean your hands often ?* Avoid sharing household items ?* Clean all high-touch services every day ?* Monitor your symptoms and seek prompt medical attention if your illness is worsening, particularly with difficulty in breathing. You may discontinue your isolation when: ?1. You have been fever-free for at least 24 hours without the use of fever reducing medication, AND ?2. Your symptoms are getting better, AND ?3. At least 5 days have passed since symptoms first appeared ?4. If you have fever, continue to stay home until fever resolves Individuals with laboratory confirmed COVID-19 who have not had any symptoms may discontinue home isolation when at least 5 days have passed since the date of their first COVID-19 diagnostic test and have had no subsequent illness You should notifiy any friends and family that have been in close contact *If up to date on COVID Vaccines, then they do not need to quarantine unless symptoms develop. Get tested on day 5 (or sooner if symptoms develop). Take precautions and watch for symptoms until day 10 *If NOT up to date on COVID Vaccines, then CDC recommends quarantine for at least 5 full days. Wear a well fitted mask at home if you must be around others. If they ?develop symptoms they should get tested. If they remain asymptomatic they should get tested on day 5. They should take precautions and monitor for symptoms until day 10. Prescriptions: No Action amlodipine 10 mg tablet 10 mg PO DAILY Qty: 90 3RF aspirin 81 mg tablet,delayed release (DR/EC) 81 mg PO DAILY Qty: 90 3RF Hold Instructions: on toradol Disabled Parking Permit See Rx Instructions .ROUTE .COMPLEX Qty: 1 0RF Rx Instructions: I find this patient to be medically disabled and qualify for disabled parking as indicated and signed on the accompanying disabled parking application for individuals. Disabled Parking Permit See Rx Instructions .ROUTE .COMPLEX Qty: 1 0RF Rx Instructions: I find this patient to be medically disabled and qualify for disabled parking as indicated and signed on the accompanying disabled parking application for individuals. carbamazepine 200 mg tablet 200 mg PO TID 90 Days Qty: 270 3RF Rx Instructions: Take 1 tab by mouth for trigeminal neuralgia losartan [Cozaar] 100 mg tablet 100 mg PO DAILY Qty: 90 3RF Hold Instructions: increased creatinine metoprolol succinate 50 mg tablet extended release 24 hr 50 mg PO BID Qty: 30 0RF Referrals: Nata Jimenez ARNP [Primary Care Provider] - Stand Alone Forms: Patient Portal/API
--- NOTE | 2022-08-08 10:16 | DI.RAD.S_ITS ---
PROCEDURE: XR ACUTE ABDOMEN SERIES INDICATIONS: cough, N/V/D TECHNIQUE: One view chest and two views of the abdomen were acquired. COMPARISON: None. FINDINGS: Surgical changes and devices: None. Chest: Ill-defined opacity in right upper lung field is seen. Left lung is clear. Heart size is normal. No pleural effusions. No pneumoperitoneum. Abdomen: Bowel gas pattern is nonobstructive. Mild fecal stasis in the colon is seen. No gross free air. No suspicious calcifications. Visualized solid organ contours appear normal. Bones: No suspicious bony lesions. IMPRESSION: 1. Finding may represent right upper lobe atelectasis versus small infiltrate. No pleural effusion or pneumothorax. 2. No bowel obstruction or pneumoperitoneum. Mild constipation. Dictated by: Hu Oakley M.D. on 08/08/2022 at 10:39 Approved by: Hu Oakley M.D. on 08/08/2022 at 10:41
[2022-08-08 11:18] LABS: Influenza A - CEPHEID Flu A NEGATIVE (NEGATIVE); Influenza B - CEPHEID Flu B NEGATIVE (NEGATIVE); Respiratory Syncytial Virus Negative (Negative)
[2022-08-08 11:22] LABS: Add Manual Diff / Slide Review NO; Basophils Absolute Auto 0 /uL (0-100); Basophils Percent Auto 0.4 % (0-2); Eosinophils Absolute Auto 100 /uL (0-450); Hematocrit 43.1 % (36-46); Hemoglobin 14.3 g/dL (12.0-16.0); Lymphocytes Absolute Auto 1100 /uL (1100-4500); Lymphocytes Percent Auto 19.7 % (25-40); Mean Corpuscular HGB Conc 33.2 % (30-36); Mean Corpuscular Hemoglobin 29.1 PG (26-34); Mean Corpuscular Volume 87.9 fL (80-100); Monocytes Absolute Auto 800 /uL (0-900); Monocytes Percent Auto 13.2 % (3-14); Neutrophils Absolute Auto 3800 /uL (1500-7000); Neutrophils Percent Auto 65.7 % (50-75); Platelet Count 273 X10^3/uL (150-400); Red Cell Distribution Width 12.7 % (11.6-14.8); White Blood Cell Count 5.8 X10^3/uL (4.5-11.0)
[2022-08-08 11:25] LABS: COVID-19 CEPHEID 4-PLEX PCR POSITIVE (Negative)
[2022-08-08] MEDS: ONDANSETRON 4 MG/2 ML INJ IV (11:26)
[2022-08-08] MEDS: PANTOPRAZOLE 40 MG VIAL IV (11:26)
[2022-08-08] MEDS: SODIUM CHLORIDE 0.9% 1,000 ML 1000 ML IV (11:27)
[2022-08-08 11:30] LABS: Alanine Aminotransferase 28 IU/L (<35); Albumin 4.4 g/dL (3.5-5.0); Alkaline Phosphatase 97 U/L (38-126); Aspartate Aminotransferase 70 IU/L (14-36); Bilirubin Total 0.6 mg/dL (0.2-1.3); Blood Urea Nitrogen 23 mg/dL (7-17); Calcium 9.4 mg/dL (8.4-10.2); Carbon Dioxide 31 mmol/L (22-32); Chloride 96 mmol/L (98-107); Creatine Kinase 119 U/L (30-135); Estimated Glomerular Filt Rate > 60 mL/min (>60); Globulin 4.2 g/dL (1.7-4.1); Glucose 128 mg/dL (80-110); HEMOLYSIS < 15 (0-50); Lipase 100 U/L (23-300); Potassium 3.5 mmol/L (3.4-5.1); Sodium 137 mmol/L (137-145); Total Protein 8.6 g/dL (6.3-8.2)
[2022-08-08 11:37] VITALS: PULSE 87; RESP 16; O2SAT 96
[2022-08-08 11:41] LABS: Troponin I 0.014 ng/mL (0.01-0.034)
[2022-08-08 11:46] LABS: CKMB % Relative Index 1.3 % (1.5-5.0); Creatine Kinase MB 1.55 ng/mL (<2.37)
[2022-08-08 12:00] VITALS: BP 164/88; PULSE 87; RESP 16; O2SAT 96
[2022-08-08 12:24] VITALS: BP 165/76; PULSE 99; RESP 17; O2SAT 99
[2022-08-08 12:30] VITALS: BP 182/102; PULSE 91; RESP 18; O2SAT 98
== END 2022-08-08 12:48 | disposition home or self-care (01) ==
PROVIDERS: Emergency Provider Emergency Medicine; PCP Nurse Practitioner
DX: U07.1 COVID-19 (principal)
CPT/HCPCS: 0241U; 36415; 74022; 80053; 81003; 82550; 82553; 82962; 83690; 84484; 85025; 96361; 96374; 96375; 99284; C9113; J2405

== ENCOUNTER → 2023-02-11 13:44 | Outpatient (CLI) | payer MEDICARE, OTHER, SELFPAY ==
[2023-02-11 15:17] LABS: Hemoglobin A1C% w Est Avg Glu 6.1 % (4.0-6.0)
[2023-02-11 15:37] LABS: Alanine Aminotransferase 19 IU/L (<35); Albumin 4.3 g/dL (3.5-5.0); Albumin Globulin Ratio 1.3 (1.0-2.8); Alkaline Phosphatase 68 U/L (38-126); Aspartate Aminotransferase 39 IU/L (14-36); BUN Creatinine Ratio 24.7 (6-22); Bilirubin Total 0.5 mg/dL (0.2-1.3); Blood Urea Nitrogen 18 mg/dL (7-17); Calcium 9.9 mg/dL (8.4-10.2); Carbon Dioxide 30 mmol/L (22-32); Chloride 101 mmol/L (98-107); Cholesterol 233 mg/dL (140-199); Estimated Glomerular Filt Rate > 60 mL/min (>60); Globulin 3.3 g/dL (1.7-4.1); Glucose 98 mg/dL (80-110); HDL Cholesterol 35 mg/dL (40-60); HEMOLYSIS < 15 (0-50); LDL Cholesterol Calculated 148 mg/dL (<100); Magnesium 1.8 mg/dL (1.6-2.3); Potassium 4.1 mmol/L (3.4-5.1); Sodium 139 mmol/L (137-145); Total Protein 7.6 g/dL (6.3-8.2); Triglycerides 248 mg/dL (35-150)
== END ==
PROVIDERS: PCP Nurse Practitioner; Referring Provider Family Medicine; Visit Provider Family Medicine
DX: E78.2 Mixed hyperlipidemia (principal); I10 Essential (primary) hypertension; N18.30 Chronic kidney disease, stage 3 unspecified
CPT/HCPCS: 80053; 80061; 83036; 83735

== ENCOUNTER 2023-04-19 20:17 | Emergency (ER) | payer MEDICARE, OTHER, SELFPAY ==
[2023-04-19 20:21] VITALS: BP 200/93; PULSE 85; RESP 17; TEMP 36.6; O2SAT 96; BMI 25.8
[2023-04-19 21:19] VITALS: BP 193/92; PULSE 82; RESP 18; O2SAT 96
--- NOTE | 2023-04-19 21:38 | ED_ITS ---
HPI - General Adult General Chief complaint: Dental/Oral Stated complaint: mouth pain, left side Time Seen by Provider: 04/19/23 21:30 Source: patient Mode of arrival: Ambulatory History of Present Illness HPI narrative: Patient is a 67-year-old female who is here for evaluation of gum pain in her left upper jaw. She has had all of her teeth removed. She does have full upper dentures. No specific trauma. Has noticed the discomfort just this afternoon. Related Data Home Medications Medication Instructions Recorded Confirmed calcium 500mg See Rx Instructions .Route .COMPLEX 01/21/23 02/04/23 Previous Rx's Medication Instructions Recorded Disabled Parking Permit See Rx Instructions .Route 12/28/20 .COMPLEX #1 unit Disabled Parking Permit See Rx Instructions .Route 01/01/22 .COMPLEX #1 unit aspirin 81 mg tablet,delayed 81 mg PO DAILY #90 tabs 01/01/22 release carbamazepine 200 mg tablet 200 mg PO TID 90 days #270 tabs 07/23/22 ondansetron 4 mg disintegrating 4 mg PO TID-QID PRN nausea and 08/08/22 tablet vomiting #20 tabs OMRON Blood Pressure Cuff #1 ea 10/15/22 gabapentin 100 mg capsule 100 mg PO TID PRN pain 90 days 10/15/22 #270 caps clobetasol 0.05 % topical ointment 1 applic topical QAM AND QPM PRN 01/21/23 itchiness #15 grams ketoconazole 2 % shampoo 1 applic topical 3XW #120 mL 01/21/23 vitamin d3 See Rx Instructions .Route 01/21/23 .COMPLEX #1 cap amlodipine 10 mg tablet 10 mg PO DAILY #90 tabs 01/28/23 losartan 100 mg tablet (Cozaar) 100 mg PO DAILY #90 tabs 01/28/23 metoprolol succinate 100 mg 100 mg PO BID #60 tabs 03/06/23 tablet,extended release 24 hr clindamycin HCl 300 mg capsule 300 mg PO QID 7 days #28 caps 04/19/23 Allergies Allergy/AdvReac Type Severity Reaction Status Date / Time acetaminophen [ACETAMINOPHEN] Allergy Severe hives, Verified 04/19/23 20:20 puritis crab [CRAB] Allergy Severe hives, Verified 04/19/23 20:20 puritis morphine Allergy Severe Difficulty Verified 04/19/23 20:20 Breathing Penicillins [PENICILLINS] Allergy Severe hives, Verified 04/19/23 20:20 puritis Sulfa (Sulfonamide Allergy Severe hives, Verified 04/19/23 20:20 Antibiotics) puritis [SULFA (SULFONAMIDE ANTIBIOTICS)] cyclobenzaprine Allergy Hives Verified 04/19/23 20:20 [From Flexeril] Review of Systems Constitutional Constitutional: Reports system reviewed and no additional complaints, except as documented ENT Ears, Nose, Mouth, and Throat: Reports system reviewed and no additional complaints, except as documented Integumentary/Breasts Skin/Breast: Reports system reviewed and no additional complaints, except as documented Patient History Medical History Vascular abnormality of brain COVID-19 Hx of antibiotic allergy Acute maxillary sinusitis Edentulous Obstructive sleep apnea (~01/01/20) Daytime sleepiness Tuberculosis Arthritis Insomnia Neuritis of right ulnar nerve Bicipital tendinitis Pancreatic mass History of active tuberculosis Hyperlipidemia Hypertension History of vaginal delivery Mixed hyperlipidemia (07/22/15) Essential hypertension (04/15/15) Surgical History History of tonsillectomy History of cataract extraction Family History Father Stroke Loud snoring Mother Aneurysm Family/Other Loud snoring Obesity Hypertension Heart disease Social History household members: spouse and family Smoking Status: Never smoker alcohol intake: current Smoking Status: Never smoker alcohol intake frequency: holidays/special occasions only Substance Use Type: does not use Exam Initial Vital Signs Initial Vital Signs: Vital Signs Temperature 97.9 F 04/19/23 20:21 Pulse Rate 85 04/19/23 20:21 Respiratory Rate 17 04/19/23 20:21 Blood Pressure 200/93 H 04/19/23 20:21 Pulse Oximetry 96 04/19/23 20:21 Oxygen Delivery Method Room Air 04/19/23 20:21 HENAL Mouth: lip normal and No drooling Teeth and gingiva: gingiva abnormal (Slight redness left upper gum without abscess) and other (All teeth have been removed) Skin General: no rashes or lesions noted Course Orders Ordered: Discontinued Medications Clindamycin HCl (Clindamycin 150 Mg Capsule) 300 mg PO NOW ONE Stop: 04/19/23 21:39 Last Admin: 04/19/23 21:42 Dose: 300 mg Documented By: BONY Vital Signs Vital signs: Vital Signs - 8 hr 04/19/23 20:21 04/19/23 21:19 04/19/23 22:03 Temperature 97.9 F 99 F Pulse Rate 85 82 74 Respiratory Rate 17 18 18 Blood Pressure 200/93 H 193/92 H 186/87 H Pulse Oximetry 96 96 96 Oxygen Delivery Method Room Air Room Air Room Air Medical Decision Making MDM Narrative Medical decision making narrative: All of her teeth have been removed. I had her remove her upper dentures. There is an area of redness along the left upper gum without signs of abscess. Her symptoms have been going on just for the past couple hours. It is important that she follow-up with a dentist but until then we will treat her with antib iotics. Also discussed the possibility that potentially her dentures are not fitting well. Her family states that the dentures she currently uses she is had for quite some time. There was no indication for admission to the hospital or radiologic studies. Patient and family were given return precautions. Discharge Plan Departure Patient Disposition: Home Clinical Impression: Pain, dental Instructions: DI for Dental Pain Activity Restrictions/Additional Instructions: Would you recommend that you take the antibiotics as directed. Also recommend that you follow-up with a dentist next week. Return to the emergency department for worsening symptoms. Prescriptions: New clindamycin HCl 300 mg capsule 300 mg PO QID 7 Days Qty: 28 0RF No Action metoprolol succinate 100 mg tablet extended release 24 hr 100 mg PO BID Qty: 60 0RF aspirin 81 mg tablet,delayed release (DR/EC) 81 mg PO DAILY Qty: 90 3RF Hold Instructions: on toradol Disabled Parking Permit See Rx Instructions .ROUTE .COMPLEX Qty: 1 0RF Rx Instructions: I find this patient to be medically disabled and qualify for disabled parking as indicated and signed on the accompanying disabled parking application for individuals. clobetasol 0.05 % ointment 1 applic topical QAM AND QPM PRN (Reason: itchiness) Qty: 15 1RF Rx Instructions: Apply twice daily as needed to itchy area on back ketoconazole 2 % shampoo 1 applic topical 3XW Qty: 120 3RF Rx Instructions: Use to shampoo hair 2-3 times per week calcium 500mg See Rx Instructions .ROUTE .COMPLEX Rx Instructions: Take twice per day; vitamin d3 See Rx Instructions .ROUTE .COMPLEX Qty: 1 0RF Rx Instructions: with calcium twice per day; amlodipine 10 mg tablet 10 mg PO DAILY Qty: 90 3RF losartan [Cozaar] 100 mg tablet 100 mg PO DAILY Qty: 90 3RF Hold Instructions: increased creatinine Disabled Parking Permit See Rx Instructions .ROUTE .COMPLEX Qty: 1 0RF Rx Instructions: I find this patient to be medically disabled and qualify for disabled parking as indicated and signed on the accompanying disabled parking application for individuals. carbamazepine 200 mg tablet 200 mg PO TID 90 Days Qty: 270 3RF Rx Instructions: Take 1 tab by mouth for trigeminal neuralgia (DME) OMRON Blood Pressure Cuff See Rx Instructions .Route .MEDSUPPLY Qty: 1 0RF Rx Instructions: Take blood pressure daily gabapentin 100 mg capsule 100 mg PO TID PRN (Reason: pain) 90 Days Qty: 270 3RF Rx Instructions: Take 1 tab up to 3x/day as needed for pain ondansetron 4 mg tablet,disintegrating 4 mg PO TID-QID PRN (Reason: nausea and vomiting) Qty: 20 0RF Referrals: Nata Jimenez ARNP [Primary Care Provider] - Stand Alone Forms: Patient Portal/API
[2023-04-19] MEDS: CLINDAMYCIN 150 MG CAPSULE 300 MG PO (21:42)
[2023-04-19 22:03] VITALS: BP 186/87; PULSE 74; RESP 18; TEMP 37.2; O2SAT 96
== END 2023-04-19 22:32 | disposition home or self-care (01) ==
PROVIDERS: Emergency Provider Emergency Medicine; PCP Nurse Practitioner
DX: K08.89 Other specified disorders of teeth and supporting structures (principal)
CPT/HCPCS: 99283

== ENCOUNTER → 2023-05-14 16:56 | Outpatient (CLI) | payer MEDICARE, OTHER, SELFPAY ==
--- NOTE | 2023-05-14 17:01 | DI.RAD.S_ITS ---
PROCEDURE: XR KNEE LT 3V INDICATIONS: chronic pain R>L, hx heberden's nodes fingers TECHNIQUE: 3 views of the knee were acquired. COMPARISON: None. FINDINGS: Bones: No fractures or dislocations. No suspicious bony lesions. There is moderate tricompartmental osteoarthritic type degenerative change present. Soft tissues: No joint effusion. No suspicious soft tissue calcifications. IMPRESSION: 1. No evidence for acute osseous abnormality involving the left knee. 2. Moderate tricompartmental osteoarthritic degenerative change. Dictated by: Shankar Wan M.D. on 05/15/2023 at 13:00 Approved by: Shankar Wan M.D. on 05/15/2023 at 13:02
--- NOTE | 2023-05-14 17:01 | DI.RAD.S_ITS ---
PROCEDURE: XR KNEE RT 3V INDICATIONS: chronic pain R>L, hx OA fingers TECHNIQUE: 3 views of the knee were acquired. COMPARISON: None. FINDINGS: Bones: No fractures or dislocations. No suspicious bony lesions. There is moderate osteoarthritic degenerative change involving the right knee with the medial compartment most severely affected. Soft tissues: No joint effusion. No suspicious soft tissue calcifications. IMPRESSION: 1. No evidence for acute osseous abnormality involving the right knee. 2. Moderate osteoarthritic degenerative change with the medial compartment most severely affected. Dictated by: Shankar Wan M.D. on 05/15/2023 at 13:02 Approved by: Shankar Wan M.D. on 05/15/2023 at 13:04
== END ==
PROVIDERS: PCP Nurse Practitioner; Referring Provider Physician Assistant; Visit Provider Physician Assistant
DX: M25.561 Pain in right knee (principal); M25.562 Pain in left knee; M89.8X6 Other specified disorders of bone, lower leg
CPT/HCPCS: 73562

== ENCOUNTER 2023-07-31 15:29 | Emergency (ER) | payer MEDICARE, OTHER, SELFPAY ==
[2023-07-31 15:48] VITALS: BP 235/110; PULSE 78; RESP 16; TEMP 36.7; O2SAT 99; BMI 25.8
[2023-07-31 17:32] VITALS: BP 209/100; PULSE 76; RESP 20; O2SAT 99
--- NOTE | 2023-07-31 17:42 | ED_ITS ---
HPI - Dental/Oral <Evelin Mortensen PA-C - Last Filed: 08/01/23 10:52> General Chief complaint: Dental/Oral Stated complaint: can't eat or drink, infected gums Time Seen by Provider: 07/31/23 16:29 Source: patient Mode of arrival: Ambulatory History of Present Illness HPI Narrative: This is a 67-year-old woman with a history of hypertension, trigeminal neuralgia, hyperlipidemia who presents with concern for left upper gum pain, is edentulous and wears dentures. She has been having this pain for 4 days she states the pain is constant and she has not taken anything for it including Tylenol or ibuprofen, she also has not taken her regular blood pressure medications for the last 2 days because she says it is too painful to drink and swallow pills she endorses the pain is worse with opening and closing her mouth or attempting to chew. She denies headache vision change dizziness or any other symptoms. She states that she has not seen a dentist or specialist for her dentures in some time. She has not noticed swelling of her cheek or lower jaw pain. She says the pain is focused on her left upper molar region a few back from where her eye tooth would be if she had one. She denies fevers, chills, na usea, vomiting or other symptoms. Related Data Home Medications Medication Instructions Recorded Confirmed calcium 500mg See Rx Instructions .Route .COMPLEX 01/21/23 05/14/23 Previous Rx's Medication Instructions Recorded Disabled Parking Permit See Rx Instructions .Route 12/28/20 .COMPLEX #1 unit Disabled Parking Permit See Rx Instructions .Route 01/01/22 .COMPLEX #1 unit aspirin 81 mg tablet,delayed 81 mg PO DAILY #90 tabs 01/01/22 release ondansetron 4 mg disintegrating 4 mg PO TID-QID PRN nausea and 08/08/22 tablet vomiting #20 tabs OMRON Blood Pressure Cuff #1 ea 10/15/22 clobetasol 0.05 % topical ointment 1 applic topical QAM AND QPM PRN 01/21/23 itchiness #15 grams ketoconazole 2 % shampoo 1 applic topical 3XW #120 mL 01/21/23 vitamin d3 See Rx Instructions .Route 01/21/23 .COMPLEX #1 cap amlodipine 10 mg tablet 10 mg PO DAILY #90 tabs 05/13/23 carbamazepine 200 mg 200 mg PO TID #270 caps 05/13/23 capsule,extended release [id number] gabapentin 100 mg capsule 100 mg PO TID PRN pain 90 days 05/13/23 #270 caps rosuvastatin 10 mg tablet 10 mg PO DAILY #90 tabs 05/13/23 telmisartan 40 mg tablet 40 mg PO DAILY #90 tabs 05/13/23 meloxicam 15 mg tablet 15 mg PO DAILY #30 tabs 05/14/23 clindamycin HCl 300 mg capsule 300 mg PO Q8H dental 07/31/23 pain/infection 10 days #30 caps Allergies Allergy/AdvReac Type Severity Reaction Status Date / Time acetaminophen [ACETAMINOPHEN] Allergy Severe hives, Verified 05/14/23 16:11 puritis crab [CRAB] Allergy Severe hives, Verified 05/14/23 16:11 puritis morphine Allergy Severe Difficulty Verified 05/14/23 16:11 Breathing Penicillins [PENICILLINS] Allergy Severe hives, Verified 05/14/23 16:11 puritis Sulfa (Sulfonamide Allergy Severe hives, Verified 05/14/23 16:11 Antibiotics) puritis [SULFA (SULFONAMIDE ANTIBIOTICS)] cyclobenzaprine Allergy Hives Verified 05/14/23 16:11 [From Flexeril] Review of Systems <Evelin Mortensen PA-C - Last Filed: 08/01/23 10:52> Review of Systems Narrative: See HPI Patient History <Evelin Mortensen PA-C - Last Filed: 08/01/23 10:52> Medical History Prediabetes Vascular abnormality of brain COVID-19 Hx of antibiotic allergy Acute maxillary sinusitis Edentulous Obstructive sleep apnea (~01/01/20) Daytime sleepiness Tuberculosis Arthritis Insomnia Neuritis of right ulnar nerve Bicipital tendinitis Pancreatic mass History of active tuberculosis Hyperlipidemia Hypertension History of vaginal delivery Mixed hyperlipidemia (07/22/15) Essential hypertension (04/15/15) Surgical History History of tonsillectomy History of cataract extraction Family History Father Stroke Loud snoring Mother Aneurysm Family/Other Loud snoring Obesity Hypertension Heart disease Social History household members: spouse and family Smoking Status: Never smoker alcohol intake: current Smoking Status: Never smoker alcohol intake frequency: holidays/special occasions only Substance Use Type: does not use Exam <Evelin Mortensen PA-C - Last Filed: 08/01/23 10:52> Narrative Exam Narrative: GENERAL: 67 year old patient appears stated age. Well-developed patient, in mild distress. HEAD: Atraumatic. Normocephalic. EYES: Pupils equal round and reactive. Extraocular motions intact. No scleral icterus. No injection or drainage. ENT: Nose without bleeding, purulent drainage. Patient is edentulous, there is no evidence of trauma or lesion/open wound to the oral mucosa. There is no erythema noted. Patient does have tenderness and in reduced pain with palpation of the left upper jaw posterior to the area of the eye tooth. Patient endorses this is where her pain has been for the past 4 days. There is no fluctuance or swelling noted. No drainage. The buccal region is not inflamed and there is no palpable mass or fluctuance. Patient has increased pain with opening and closing her mouth but is able to swallow effectively. Parotid glands are noninflamed. Throat without erythema, tonsillar hypertrophy or exudate. Airway patent. NECK: Trachea midline. Non tender no lymphadenopathy noted CARDIOVASCULAR: Regular rate and rhythm without murmurs, gallops, or rubs. RESPIRATORY: Clear to auscultation. Breath sounds equal bilaterally. No wheezes, rales, or rhonchi. EXTREMITIES: Moving all extremities, normal gait NEURO: AOx3. SKIN: No rash or erythema of visible areas Initial Vital Signs Initial Vital Signs: Vital Signs Temperature 98.1 F 07/31/23 15:48 Pulse Rate 78 07/31/23 15:48 Respiratory Rate 16 07/31/23 15:48 Blood Pressure 235/110 H 07/31/23 15:48 Pulse Oximetry 99 07/31/23 15:48 Oxygen Delivery Method Room Air 07/31/23 15:48 <Mya Soliz DO - Last Filed: 08/03/23 07:51> Initial Vital Signs Initial Vital Signs: Vital Signs Temperature 98.1 F 07/31/23 15:48 Pulse Rate 78 07/31/23 15:48 Respiratory Rate 16 07/31/23 15:48 Blood Pressure 235/110 H 07/31/23 15:48 Pulse Oximetry 99 07/31/23 15:48 Oxygen Delivery Method Room Air 07/31/23 15:48 Course <Evelin Mortensen PA-C - Last Filed: 08/01/23 10:52> Course Course Narrative: Patient was given her daily antihypertensives, metoprolol 100 mg and amlodipine 10 mg, she does normally take the metoprolol b.i.d. given the single dose here today she has not taken any of her blood pressure meds for 2 days. She was able to swallow these with water without apparent difficulty. 1820 Orders Ordered: Discontinued Medications Amlodipine Besylate (Amlodipine 5 Mg Tablet) 10 mg PO DAILY [facility] Last Admin: 07/31/23 17:51 Dose: 10 mg Documented By: RL Ketorolac Tromethamine (Ketorolac 30 Mg/Ml Vial) 15 mg IM NOW ONE Stop: 07/31/23 17:55 Last Admin: 07/31/23 18:18 Dose: 15 mg Documented By: RL Metoprolol Succinate (Metoprolol Er 50 Mg Tablet) 100 mg PO NOW ONE Stop: 07/31/23 17:36 Last Admin: 07/31/23 17:52 Dose: 100 mg Documented By: RL Vital Signs Vital signs: Vital Signs - 8 hr 07/31/23 15:48 07/31/23 17:32 07/31/23 18:54 Temperature 98.1 F Pulse Rate 78 76 67 Respiratory Rate 16 20 18 Blood Pressure 235/110 H 209/100 H 203/98 H Pulse Oximetry 99 99 98 Oxygen Delivery Method Room Air Room Air Room Air <Mya Soliz DO - Last Filed: 08/03/23 07:51> Orders Ordered: Discontinued Medications Amlodipine Besylate (Amlodipine 5 Mg Tablet) 10 mg PO DAILY [facility] Last Admin: 07/31/23 17:51 Dose: 10 mg Documented By: RL Ketorolac Tromethamine (Ketorolac 30 Mg/Ml Vial) 15 mg IM NOW ONE Stop: 07/31/23 17:55 Last Admin: 07/31/23 18:18 Dose: 15 mg Documented By: RL Metoprolol Succinate (Metoprolol Er 50 Mg Tablet) 100 mg PO NOW ONE Stop: 07/31/23 17:36 Last Admin: 07/31/23 17:52 Dose: 100 mg Documented By: JASON Vital Signs Vital signs: Vital Signs - 8 hr 07/31/23 15:48 07/31/23 17:32 07/31/23 18:54 Temperature 98.1 F Pulse Rate 78 76 67 Respiratory Rate 16 20 18 Blood Pressure 235/110 H 209/100 H 203/98 H Pulse Oximetry 99 99 98 Oxygen Delivery Method Room Air Room Air Room Air MDM - Dental/Oral <Evelin Mortensen PA-C - Last Filed: 08/01/23 10:52> Differential Diagnosis Differential diagnosis: Likely toothache and other (Tooth throat infection) Medical Records Attestation: I reviewed the patient's medical records. Treatment and disposition Shared decision making:: Shared decision-making was used to determining plan for outpatient follow-up and treatment today in the emergency department MDM Narrative Medical decision making narrative: This is a 67-year-old female with history of hypertension, trigeminal neuralgia who is edentulous who presents today with concern for left upper gum/jaw pain present for 4 days. Her exam is nonspecific although certainly possible that she has an infection under the gum at of tooth roots site. She is placed on antibiotics, clindamycin as she is allergic to penicillins. Patient was also quite hypertensive on presentation although asymptomatic from this. She has not been taking her antihypertensive medications for 2 days due to reported inability to open her mouth to take them. However patient has no difficulty opening her mouth enough to take these pills today in the emergency department and swallow them with water. She does endorse that she has her medications at home. She is counseled she does need to take her medications despite her oral pain it is very important to keep her blood pressure is under control. Blood pressures do improve slightly after administration of her medication, and she is advised to monitor this at home. She is encouraged to follow with Dentistry as soon as possible and follow up closely with her primary care provider as well as Neurology/specialist if she sees them for trigeminal neuralgia. She endorses that she is still taking medication for her trigeminal neuralgia and feels that her current pain could not possibly be related to this because the medication is not working and it has always worked in the past. Return precautions provided, follow-up plan discussed, all questions answered. Discharge Plan Departure Patient Disposition: Home Clinical Impression: Pain, dental Hypertension Qualifiers: Hypertension type: unspecified Qualified Code(s): I10 - Essential (primary) hypertension Activity Restrictions/Additional Instructions: *You have been diagnosed with [dental pain] *What to do: *Please continue to take your regular medications as directed. [1 ] New medication prescriptions sent to your pharmacy: [Clindamycin] [ ] New medication written as a paper prescription [ ] No new medications given *Please follow up with your primary care provider in 2-3 days, call for an appointment. Let them know you were seen in the Emergency Department and that we ask that you be seen in follow up. We will electronically transmit a record of today's note if your PCP is in our system. You have been having dental pain in your left upper jaw for about the past 4 days. You do not have any teeth but it is certainly possible that there is an infection going on in an area where there is to be a tooth root or there is still root material. I do not see any obvious infection on your exam but you definitely have some tenderness there. You came in today with very high blood pressure and stated you had not take your blood pressure medicines for the last 2 days because of your mouth pain. We were able to give you your medicines today in the emergency department and you were able to swallow them with water fine. It is very important that you take your medications I understand it can be painful to chew or swallow currently but it is very important that you stay hydrated and take all of your regular medicines. It is possible that some of your pain or all of your pain could be related to your problem with chronic trigeminal neuralgia. You are already taking medication for this. It may be worth talking to your primary care provider or if you have a neurologist seeing them again particularly if your pain does not improve with the antibiotics that I am prescribing today. I prescribed a 10 day course of antibiotics and I am hopeful this will improve your symptoms. I do not see evidence that your dentures are not fitting well, there does not appear to be any sore area redness or wounds however it would also be reasonable to see Dentistry and have this double checked. As far as eating we discussed this as well and I encourage you to really push fluids you can do things like broths or soaps that are blended or do not have anything to chew, you can also try things like applesauce and pudding any kind of soft food so that you can get some calories in despite your mouth pain. Hopefully the antibiotics will help your pain soon. You can take ibuprofen or Advil for pain this is available [id number] you may also want to try something called Orajel which is also available over the counter or at the drug store and you could try applying this to your gum at the area of pain. If you develop new or worsening symptoms such as fevers, chills, nausea, vomiting, vision change, dizziness, severe headache or any other symptoms please do not hesitate to seek re-evaluation immediately. *If you do not have a primary care provider please contact the [facility] Resource line at [phone]. They will ask some questions about your medical history and help get you set up with a doctor in the community. *Return to Emergency Department if you should have any new, worsening or mariana rning symptoms, such as [fever greater than 101 F, shaking chills, worsening pain, persistent vomiting or other bothersome symptoms] Prescriptions: New clindamycin HCl 300 mg capsule 300 mg PO Q8H 10 Days Qty: 30 0RF No Action aspirin 81 mg tablet,delayed release (DR/EC) 81 mg PO DAILY Qty: 90 3RF Hold Instructions: on toradol Disabled Parking Permit See Rx Instructions .ROUTE .COMPLEX Qty: 1 0RF Rx Instructions: I find this patient to be medically disabled and qualify for disabled parking as indicated and signed on the accompanying disabled parking application for individuals. clobetasol 0.05 % ointment 1 applic topical QAM AND QPM PRN (Reason: itchiness) Qty: 15 1RF Rx Instructions: Apply twice daily as needed to itchy area on back ketoconazole 2 % shampoo 1 applic topical 3XW Qty: 120 3RF Rx Instructions: Use to shampoo hair 2-3 times per week calcium 500mg See Rx Instructions .ROUTE .COMPLEX Rx Instructions: Take twice per day; vitamin d3 See Rx Instructions .ROUTE .COMPLEX Qty: 1 0RF Rx Instructions: with calcium twice per day; meloxicam 15 mg tablet 15 mg PO DAILY Qty: 30 1RF Disabled Parking Permit See Rx Instructions .ROUTE .COMPLEX Qty: 1 0RF Rx Instructions: I find this patient to be medically disabled and qualify for disabled parking as indicated and signed on the accompanying disabled parking application for individuals. (DME) OMRON Blood Pressure Cuff See Rx Instructions .Route .MEDSUPPLY Qty: 1 0RF Rx Instructions: Take blood pressure daily amlodipine 10 mg tablet 10 mg PO DAILY Qty: 90 3RF telmisartan 40 mg tablet 40 mg PO DAILY Qty: 90 2RF Rx Instructions: Take 1 tab at bedtime daily for blood pressure rosuvastatin 10 mg tablet 10 mg PO DAILY Qty: 90 2RF Rx Instructions: Take 1 tab daily for cholesterol gabapentin 100 mg capsule 100 mg PO TID PRN (Reason: pain) 90 Days Qty: 270 0RF Hold Instructions: use carbemazepine Rx Instructions: Per Neurology carbamazepine 200 mg capsule, ER multiphase 12 hr 200 mg PO TID Qty: 270 0RF Rx Instructions: Take 1 cap three times per day ondansetron 4 mg tablet,disintegrating 4 mg PO TID-QID PRN (Reason: nausea and vomiting) Qty: 20 0RF Referrals: Nata Jimenez ARNP [Primary Care Provider] - Stand Alone Forms: Patient Portal/API ED Sign-out <Mya Soliz DO - Last Filed: 08/03/23 07:51> Cosign ED Attending Kamaljit Attestation: I was available for consultation.
[2023-07-31] MEDS: AMLODIPINE 5 MG TABLET 10 MG PO (17:51)
[2023-07-31] MEDS: METOPROLOL ER 50 MG TABLET 100 MG PO (17:52)
[2023-07-31] MEDS: KETOROLAC 30 MG/ML VIAL 15 MG IM (18:18)
[2023-07-31 18:54] VITALS: BP 203/98; PULSE 67; RESP 18; O2SAT 98
== END 2023-07-31 19:15 | disposition home or self-care (01) ==
PROVIDERS: Emergency Provider Student in an Organized Health Care Education/Training Program; PCP Nurse Practitioner
DX: K08.89 Other specified disorders of teeth and supporting structures (principal); I10 Essential (primary) hypertension
CPT/HCPCS: 96372; 99283; J1885

== ENCOUNTER → 2023-10-30 14:19 | Outpatient (CLI) | payer MEDICARE, OTHER, SELFPAY ==
[2023-10-30 15:39] LABS: Hemoglobin A1C% w Est Avg Glu 6.4 % (4.0-6.0)
[2023-10-30 15:39] LABS: Creatinine Urine Random 64.2 mg/dL
[2023-10-30 15:43] LABS: Microalbumi Creatinin Ratio Ur 18.6 ug/mg CR (<30); Microalbumin Urine Random 1.2 mg/dL (0-1.6)
[2023-10-30 15:44] LABS: Alanine Aminotransferase 12 IU/L (<35); Albumin 4.4 g/dL (3.5-5.0); Albumin Globulin Ratio 1.3 (1.0-2.8); Alkaline Phosphatase 90 U/L (38-126); Aspartate Aminotransferase 27 IU/L (14-36); BUN Creatinine Ratio 22.7 (6-22); Bilirubin Total 0.4 mg/dL (0.2-1.3); Blood Urea Nitrogen 15 mg/dL (7-17); Calcium 9.4 mg/dL (8.4-10.2); Carbon Dioxide 28 mmol/L (22-32); Chloride 105 mmol/L (98-107); Cholesterol 244 mg/dL (140-199); Estimated Glomerular Filt Rate > 60 mL/min (>60); Globulin 3.4 g/dL (1.7-4.1); Glucose 154 mg/dL (80-110); HDL Cholesterol 29 mg/dL (40-60); Potassium 4.3 mmol/L (3.4-5.1); Sodium 139 mmol/L (137-145); Total Protein 7.8 g/dL (6.3-8.2)
[2023-10-30 15:51] LABS: HEMOLYSIS 31 (0-50)
[2023-10-30 15:57] LABS: Triglycerides 823 mg/dL (35-150)
[2023-10-30 16:00] LABS: Free T3, Triiodothyronine Free 5.08 pg/mL (2.77-5.27); Free T4, Direct Thyroxine 1.02 ng/dL (0.78-2.19)
[2023-10-30 16:13] LABS: Thyroid Stimulating Hormone 2.75 uIU/mL (0.47-4.68)
== END ==
LOC: LAB 14:20
PROVIDERS: PCP Nurse Practitioner; Referring Provider Nurse Practitioner; Visit Provider Nurse Practitioner
DX: R73.03 Prediabetes (principal); I10 Essential (primary) hypertension; E78.2 Mixed hyperlipidemia; N18.30 Chronic kidney disease, stage 3 unspecified; Z79.899 Other long term (current) drug therapy
CPT/HCPCS: 36415; 80053; 80061; 82043; 82570; 83036; 84439; 84443; 84481